=== PATIENT | male | born 1935 | race Caucasian/White ===

== ENCOUNTER 2018-08-26 16:24 | Observation (INO) ==
[2018-08-26] MEDS ORDERED: SODIUM CHLORIDE 0.9% 1000ML 1,000 ML IV SCH ×2 (16:45→19:52)
[2018-08-26 17:15] LABS: Basophils # (auto) 0.02 K/uL (0-0.2); Basophils % (auto) 0.3 %; Eosinophils # (auto) 0.05 K/uL (0-0.5); Eosinophils % (auto) 0.6 %; Hemoglobin 12.5 g/dL (14.0-18.0); Immature Granulocytes # (auto) 0.02 K/uL (0.00-0.02); Immature Granulocytes % (auto) 0.3 %; Lymphocytes # (auto) 0.41 K/uL (1.2-3.4); Lymphocytes % (auto) 5.2 %; Mean Corpuscular Hgb Conc 33.8 g/dL (32-36); Mean Corpuscular Volume 91.6 fL (80-100); Mean Platelet Volume 10.1 fL (7.4-10.4); Monocytes # (auto) 0.76 K/uL (0.11-0.59); Monocytes % (auto) 9.6 %; Neutrophils # (auto) 6.63 K/uL (1.4-6.5); Platelet Count 116 K/uL (130-400); RDW Coefficient of Variation 13.9 % (11.5-14.5); RDW Standard Deviation 46.2 fL (36.4-46.3); Red Blood Count 4.04 M/uL (4.7-6.1); White Blood Count 7.89 K/uL (4.8-10.8)
--- NOTE | 2018-08-26 17:30 | CT Scan Report ---
CT head/brain wo con CLINICAL HISTORY: 82 years-old Male with syncope. Acute syncope TECHNIQUE: Multiple axial CT images of the head were obtained without contrast. A dose lowering tech nique was utilized adhering to the principles of ALARA. CT DOSE: 767.83 mGy.cm COMPARISON: CT head 04/18/2018. FINDINGS: Study is mildly motion degraded. No acute intracranial hemorrhage, midline shift, intracranial mass, hydrocephalus, territorial ischemia or abnormal extra-axial collection. Age-related involutional frederick ges with ex vacuo ventriculomegaly. Patchy white matter hypodensities appear unchanged suggestive of chronic microvascular ischemic disease. Cerebral vascular calcifications noted. The calvarium is intact. 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 The parana shahbaz sinuses, mastoid air cells, and middle ear cavities are clear. IMPRESSION: No acute intracranial abnormality. The above report was generated using voice recognition software. It may contain grammatical, syntax o r spelling errors. Electronically signed by: Eloy Shukla M.D. 08/26/2018 5:29 PM
[2018-08-26 17:32] LABS: Alanine Aminotransferase 23 U/L (12-78); Albumin Level 3.5 gm/dl (3.4-5.0); Aspartate Aminotransferase 21 U/L (15-37); BUN Creatinine Ratio 23.5 (10-20); Blood Urea Nitrogen 33 mg/dl (7-18); Calcium 9.2 mg/dl (8.5-10.1); Carbon Dioxide 24 mmol/L (21-32); Chloride 108 mmol/L (98-107); Creatinine Clr Calc Pharmacy 41.4 ml/min; Est GFR (African American) 53.6; Est GFR (Non-African American) 46.2; Glucose 104 mg/dl (70-99); Magnesium 2.2 mg/dl (1.8-2.4); Potassium 4.2 mmol/L (3.5-5.1); Sodium 141 mmol/L (136-145)
[2018-08-26 17:38] LABS: INR 1.2 (0.9-1.1); Partial Thromboplastin Time 27.6 Seconds (21.0-31.0); Prothrombin Time 12.2 Seconds (9.0-12.0)
[2018-08-26 17:43] LABS: Albumin Globulin Ratio 1.3 (0.9-2); Alkaline Phosphatase 57 U/L (45-117); Bilirubin,Total 0.9 mg/dl (0.2-1); Globulin 2.8 gm/dl (2.5-4.0); Total Protein 6.3 gm/dl (6.4-8.2); Troponin I < 0.015 ng/ml (0-0.045)
[2018-08-26] MEDS ORDERED: MAGNESIUM HYDROXIDE SUSP 30 ML UDC PO PRN (19:52)
[2018-08-26] MEDS ORDERED: POLYETHYLENE (MIRALAX) 17 GM PACK PO PRN (19:52)
[2018-08-26] MEDS ORDERED: ACETAMINOPHEN 325 MG TAB PO PRN (19:52)
[2018-08-26] MEDS ORDERED: ONDANSETRON INJ 2 MG/ML 2 ML VIAL IV PRN (19:52)
[2018-08-26] MEDS ORDERED: ALUMINUM/MAGNESIUM SUSP 30 ML UDC PO PRN (19:52)
--- NOTE | 2018-08-26 20:17 | History & Physical Report ---
Date of Service August 26, 2018 Assessment & Plan (1) Altered mental state: This is an 82 year old M who has a significant PMH of CAD as/P CABG in 2010, atrial flutter status post ablation in 10/2013, atrial fibrillation status post Sharma maze in 11/2010, PPM to ICD upgrade in 06/2016, HTN, HLD, BPH, dementia who presents to [facility] secondary to episode of lightheadedness, diaphoresis, increased confusion x15 minutes. In ED patient remained hemodynamically stable. His CBC was significant for normocytic normal chromic anemia with an H&H of 12.5 and 37.0, platelet 116. His BUN and creatinine elevated at 33 and 1.39 electrolyte otherwise unremarkable. His troponin and TSH were unremarkable. CT scan of head revealed no acute abnormality. Chronic small vessel microvascular disease was present. He did receive 1 L of IV fluid while in ED with significant improvement in mentation per family. Symptoms likely secondary to dehydration, heat exhaustion, possible TIA admit to med/surg tele under observation continue IVF 60cc/hr x 1 L and re-evaluate renal/volume status in a.m. with reserved EF interrogate pacer Carotid doppler b/l obtain echocardiogram no additional neuro imaging warranted at this time - patient is already on high intensity statin, asa and apixaban hold lisinopril and terazosin this evening (2) Acute renal insufficiency: Baseline creatinine 1.1 BUN/creatinine 33 and 1.39 today Likely prerenal/dehydration Continue gentle IVF, BMP in a.m. (3) CAD (coronary artery disease): History of CABG x4 in 2010 Continue ASA, high intensity statin, beta-iglberto JAME inhibitor on hold secondary to renal insuff (4) Chronic combined systolic and diastolic CHF (congestive heart failure): Echocardiogram 03/06 revealed LVEF 35 to 40% with global hypokinesis, severe diastolic dysfunction grade 3, AV sclerosis, moderate to severe MR Pacer/AICD in place On beta-gilberto, lisinopril as outpatient He is currently euvolemic but will rehydrate slowly (5) Atrial fibrillation: History of Sharma-Maze procedure 2010, also history of atrial flutter status post ablation Continue carvedilol for rate/rhythm control as well as apixaban for thrombotic control Patient has pacemaker/AICD in place (6) Hypertension: Blood pressure initially on lower side but now was 164/99 Patient is on carvedilol, lisinopril, terazosin We will hold lisinopril and terra Zosyn until reevaluated in a.m. continue carvedilol with parameters Check orthostatics (7) Dementia: continue namenda mental status at baseline (8) DVT prophylaxis: continue apixaban, scds/teds Disposition: admit to med/surg telemetry; likely discharge to home will consult PT/OT Follow up: PCP Dr. Weller upon discharge Patient was seen and evaluated in collaboration with Dr. Carpio, please see addendum Starting 08/27/18 patient will be under the care of Dr. Kessler History of Present Illness Chief Complaint: Episode of lightheaded, diaphoresis, increased confusion x 15 minutes Primary Care Provider: Luís Weller MD This is an 82 year old M who has a significant PMH of CAD as/P CABG in 2010, atrial flutter status post ablation in 10/2013, atrial fibrillation status post Sharma maze in 11/2010, PPM to ICD upgrade in 06/2016, HTN, HLD, BPH, dementia who presents to [facility] secondary to episode of lightheadedness, diaphoresis, increased confusion x15 minutes. , daughter, son-in-law at bedside. Family states patient was at [employer] festival that was in [place], [place] this afternoon. It was very warm and humid. Patient was standing in line drinking milkshake when he appeared, "mclean, cyanotic and sweaty." got patient to sit down and he was, "woozy," unable to communicate and vomited/was foaming out of the mouth. said it was his peanut butter milkshake he just drank. Once EMS arrived in approx 15 min patient was moving all extremities and appeared back to baseline. Family states after he received 1L of IVF he was much improved, more alert and talking. Due to pt dementia he has not been very communicative; but after IVF he was very talkative. "We think he has been dehydrated for some time." He has very good appetite but limited fluid/water intake. Patient states he feels, "different, I feel better." He denies any current f/c/s, dizziness, lightheaded, chest pain, palpitations, n/v/d, change in bowel or urinary habits. No weight loss or gain. feels urine had very strong odor and very dark. In ED patient remained hemodynamically stable. His CBC was significant for normocytic normal chromic anemia with an H&H of 12.5 and 37.0, platelet 116. His BUN and creatinine elevated at 33 and 1.39 electrolyte otherwise unremarkable. His troponin and TSH were unremarkable. CT scan of head revealed no acute abnormality. Chronic small vessel microvascular disease was present. He did receive 1 L of IV fluid while in ED with significant improvement in mentation per family. Allergies Allergy/AdvReac Type Severity Reaction Status Date / Time diazepam AdvReac Unknown . Verified 04/18/18 17:21 Home Medications Home Medications Medication Instructions Recorded Confirmed Type apixaban [Eliquis] 5 mg PO BID 04/18/18 08/26/18 History aspirin [Aspirin Low Dose] 81 mg PO DAILY 04/18/18 08/26/18 History atorvastatin 80 mg PO HS 04/18/18 08/26/18 History carvedilol 25 mg PO BID 04/18/18 08/26/18 History finasteride 5 mg PO DAILY 04/18/18 08/26/18 History lisinopril 20 mg PO DAILY 04/18/18 08/26/18 History memantine 5 mg PO BID 04/18/18 08/26/18 History terazosin 5 mg PO HS 04/18/18 08/26/18 History Past Med/Surg History Medical History Dementia (Chronic) Atrial fibrillation (Chronic) Left carotid artery stenosis (Chronic) 50-69% LICA stenosis CAD (coronary artery disease) (Chronic) PAF (paroxysmal atrial fibrillation) (Chronic) 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 Father No problems noted. Other Coronary heart disease Social History Preferred Language: [place] Communication Ability: Effective Public Health Training Assistant Required: No Beliefs That Will Affect Care: None marital status: Current Living Situation: Spouse Current Living Situation Comment: living at home current occupational status: retired Other Information That Helps Us Care for You: No Feels Safe at Home: Yes Safety Concerns: Feels Safe At This Time Smoking Status: Former smoker Do You Dip or Chew Tobacco: No Second Hand Exposure: No Tobacco Cessation Education Requested by Patient: No Hx Alcohol Use: Yes Hx Substance Use: No Review of Systems Review of Systems: As noted per HPI, 10 systems reviewed and negative unless noted above. Physical Exam Physical Exam: Gen: WD/WN, Elderly, M, sitting up in bed, NAD, pleasant but confused, conversing easily Head: Normocephalic, Atraumatic Eyes: Sclera normal, no conjunctival injection, PERRLA, EOMI ENT: Gross hearing intact, normal pharynx, mucous membranes moist Neck: supple, no adenopathy, No JVD, no bruit, Resp: Clear to auscultation b/l, no wheeze, rales, rhonchi. Normal insp/exp effort, no accessory muscle use CV: Regular rate, regular rhythm, no murmur, rub, gallop, or ectopy Abd: +BS x 4, soft, nontender, nondistended Musculoskeletal: moves extremities active rom x 4, strength intact, good urology surgeon strength Extremities: No edema bilaterally Skin: warm, moist, no rash, negative turgor, cap refill < 2sec Neuro: Alert and oriented x to self, place and family, not to time or president, speech normal, good mood/affect, cran nerve 2-12 intact grossly : deferred Results & Data Vital Signs (Past 12 Hours) Vital Signs Temp Pulse Pulse Resp BP BP Pulse Ox 08/26/18 19:52 36.9 C 80 18 164/99 H 98 08/26/18 19:21 80 18 167/92 H 97 08/26/18 17:09 81 18 126/74 97 08/26/18 16:50 63 97 08/26/18 16:39 36.7 C 72 18 132/81 97 Laboratory Results Short CBC 08/26/18 Range/Units 17:05 WBC 7.89 (4.8-10.8) K/uL Hgb 12.5 L (14.0-18.0) g/dL Hct 37.0 L (42-52) % Plt Count 116 L (130-400) K/uL BMP 08/26/18 17:05 Sodium 141 Potassium 4.2 Chloride 108 H Carbon Dioxide 24 BUN 33 H Creatinine 1.39 Glucose 104 H Calcium 9.2 Cardiac Enzymes 08/26/18 Range/Units 17:05 Troponin I < 0.015 (0-0.045) ng/ml Liver Function 08/26/18 Range/Units 17:05 Total Bilirubin 0.9 (0.2-1) mg/dl AST 21 (15-37) U/L ALT 23 (12-78) U/L Alkaline Phosphatase 57 (45-117) U/L Albumin 3.5 (3.4-5.0) gm/dl Diagnostic Findings Head CT: IMPRESSION: No acute intracranial abnormality. Medications Administered Discontinued Medications Sodium Chloride (Nss 1000ml) 1,000 mls @ 999 mls/hr IV .[id number] HARISH Stop: 08/26/18 17:45 Last Infusion: 08/26/18 19:03 Dose: 0 mls/hr Documented by: [id number] Admin: 08/26/18 17:42 Dose: 999 mls/hr Documented by: [id number] Code Status & VTE Plan Code Status Full Code VTE Prophylaxis Plan VTE Prophylaxis will be ordered: Yes Supervising Physician Co-Signing Physician Notes IM ATTENDING : Patient seen and examined. History obtained from patient and records. Preceding documentation by Ms. Lucretia Collins PA-C reviewed. In addition, patient limited history from patient secondary to dementia (no documented diagnosis although patient on Namenda.) FINAL ASSESSMENT AND PLAN as follows : Transient disorientation Possible orthostasis Likely secondary to clinical dehydration on the basis of ketonuria, relative increase in creatinine from baseline SSS sp PPM, on Eliquis History A.FIb/ Flutter status post maze procedure, ablation Chronic systolic heart failure secondary to ischemic cardiomyopathy, EF 35 to 40%, TTE 2018 -Some congestion noted after IVF bolus given at the ER CAD status post CABG Hypertension, slightly elevated Chronic anemia, hemoglobin at baseline BPH as per records OBS Medical telemetry Check orthostatic vitals PT OT eval DVT prophylaxis Eliquis Full code Home in a.m. if patient asymptomatic and work-up unremarkable.
[2018-08-26] MEDS: ATORVASTATIN 40 MG TAB PO SCH (20:34)
[2018-08-26] MEDS: MEMANTINE HCL 5 MG TAB PO SCH (20:34)
[2018-08-26] MEDS: APIXABAN 5 MG TABLET PO SCH (20:35)
[2018-08-26] MEDS ORDERED: CARVEDILOL 25 MG TAB PO SCH (21:00)
--- NOTE | 2018-08-26 21:45 | XRay Report ---
XR chest 1V portable CLINICAL HISTORY: 82 years-old Male presenting with diaphoresis. TECHNIQUE: Portable upright AP view of the chest was obtained. COMPARISON: 04/18/2018. FINDINGS: Left subclavian implanted cardiac defibrillator with leads in the right HM and right ventricular apex . An additional dependent pacer lead to the right ventricular apex may also be present. Median sterno bailey wires. Mediastinal surgical clips. Atherosclerosis of the aortic arch. Cardiac silhouette mildly enlarged. Mild pulmonary vascular prominence. No focal opacity. No large effusion or pneumothorax. O sseous structures normal. Interval external leads overlie the abdomen to grating evaluation. IMPRESSION: 1. Cardiomegaly with only mild volume overload possible. No congestive change or darling pulmonary ondina yamil. Electronically signed by: Jose Nelson M.D. 08/26/2018 9:44 PM
--- NOTE | 2018-08-26 23:01 | Ultrasound Report ---
US carotid doppler BI CLINICAL HISTORY: 82 years-old Male presenting with syncope, hx of L ICA 50-69%. TECHNIQUE: Real-time grayscale and color and spectral Doppler ultrasound imaging of the bilateral car otid arteries was performed. Stenosis measurements were based on NASCET-like criteria (distal lumen d iameter as the denominator for stenosis measurement). COMPARISON: None. FINDINGS: RIGHT: Common carotid artery (CCA): Atherosclerosis at the carotid bulb. Peak systolic velocity (PSV) 74 cm/ s. Internal carotid artery (ICA): Atherosclerosis of the proximal ICA. PSV 52 cm/s. End diastolic veloci ty (EDV) 15 cm/s. ICA/CCA (systolic) ratio: 0.7. External carotid artery (ECA): Patent. PSV 85 cm/s. LEFT: CCA: Atherosclerosis at the carotid bulb. PSV 73 cm/s. ICA: Atherosclerosis of the proximal ICA. PSV 137 cm/s. EDV 27 cm/s. ICA/CCA (systolic) ratio: 1.9. ECA: Patent. PSV 72 cm/s. Bilateral antegrade flow within the vertebral arteries. Blood pressure: Brachial: Right: 131/77 mmHg, Left: 138/75 mmHg. Reference ranges: Stenosis measurements are compared to reference velocity parameters by the Society of Radiologists in Ultrasound (SRU) consensus and Sonographic NASCET index (S-NASCET). * SRU Primary parameters: ICA PSV <125 cm/s = normal or less than 50% stenosis; ICA PSV 125-230 cm/s = 50-69% stenosis; ICA PSV >230 cm/s = greater than or equal to 70% stenosis. * SRU Additional parameters: ICA/CCA PSV ratio <2 = normal or less than 50% stenosis; ratio 2-4 = 5 0-69% stenosis; ratio >4 = greater than or equal to 70% stenosis. ICA EDV <40 cm/s = normal or less t layne 50% stenosis; ICA EDV 40-100 cm/s = 50-69% stenosis; ICA EDV >100 cm/s = greater than or equal to 70% stenosis. * S-NASCET parameters: Deceleration spectral broadening + PSV <125 cm/s = less than 50% stenosis; pa nsystolic spectral broadening + PSV <125 cm/s = 16-49% stenosis; pansystolic spectral broadening + PS V >125 cm/s + EDV <110 cm/s or ICA/CCA PSV ratio 2-4 = 50-69% stenosis; pansystolic spectral broadeni ng + PSV >270 cm/s OR EDV >110 cm/s OR ICA/CCA PSV ratio >4 = 70-79% stenosis; EDV >140 cm/s = 80-99% stenosis. IMPRESSION: 1. Atherosclerosis with up to 50-69% stenosis of the proximal left internal carotid artery. Electronically signed by: Jose Nelson M.D. 08/26/2018 11:00 PM
--- NOTE | 2018-08-26 23:18 | Emergency Department Note ---
Entered by Mel Rome acting as a scribe for Ernesto Walker MD History of Present Illness General Chief complaint: Syncope Stated complaint: SYNCOPE Time Seen by Provider: 08/26/18 16:29 Source: patient Limitations: no limitations History of Present Illness Onset (ago): minute(s) ([facility] [employer]) Location: head Pain Consistency: + other (episode) Current Pain Intensity: 0 Quality: + other (syncope) Associated symptoms: no chest pain, no headaches, no nausea/vomiting and no sh ortness of breath The patient is an 82 white male w/ PMHx HTN, hyperlipidemia, a fib on Eliquis, CABG x 4, and Alzheimer's who presents to the ED w/ CC of an episode of a syncope that occurred [employer]. He reports that the episode lasted a few seconds, however, the nursing staff notes that the episode lasted 3-5 minutes. Per the nursing staff, he was diaphoretic after the episode. The patient notes that he was outside for most of the day today. He denies any pain. The patient denies any nausea, BOLAND, CP, and SOB. He denies any history of similar episodes or seizures. The patient notes that he follows up with Dr. Keller of cardiology. Per the nursing staff, the patient's sugar was 141. He is currently taking Aspirin and Eliquis. Home Medications Home Medications Medication Instructions Recorded Confirmed Type apixaban [Eliquis] 5 mg PO BID 04/18/18 08/26/18 History aspirin [Aspirin Low Dose] 81 mg PO DAILY 04/18/18 08/26/18 History atorvastatin 80 mg PO HS 04/18/18 08/26/18 History carvedilol 25 mg PO BID 04/18/18 08/26/18 History finasteride 5 mg PO DAILY 04/18/18 08/26/18 History lisinopril 20 mg PO DAILY 04/18/18 08/26/18 History memantine 5 mg PO BID 04/18/18 08/26/18 History terazosin 5 mg PO HS 04/18/18 08/26/18 History Allergies Allergy/AdvReac Type Severity Reaction Status Date / Time diazepam AdvReac Unknown . Verified 04/18/18 17:21 Past Med/Surg History Medical History Dementia (Chronic) Atrial fibrillation (Chronic) Left carotid artery stenosis (Chronic) 50-69% LICA stenosis CAD (coronary artery disease) (Chronic) PAF (paroxysmal atrial fibrillation) (Chronic) 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 Father No problems noted. Other Coronary heart disease Social History Preferred Language: [place] Communication Ability: Effective Special Police Officer Required: No Beliefs That Will Affect Care: None marital status: Current Living Situation: Spouse Current Living Situation Comment: living at home current occupational status: retired Other Information That Helps Us Care for You: No Feels Safe at Home: Yes Safety Concerns: Feels Safe At This Time Smoking Status: Former smoker Do You Dip or Chew Tobacco: No Second Hand Exposure: No Tobacco Cessation Education Requested by Patient: No Hx Alcohol Use: Yes Hx Substance Use: No Review of Systems See HPI for pertinent positives & negatives. and A total of 10 systems reviewed and were otherwise negative Physical Exam Vital Signs Vital Signs - 24 hr 08/26/18 16:39 08/26/18 16:50 08/26/18 17:09 Temperature 36.7 C Temperature Source Oral Sepsis Recent Fever Within 48 Hours No Sepsis New/Unexplained Change in Mental Status No Sepsis Action Taken by Nursing No Action Required Pulse Rate 72 63 Pulse Rate [Apical] 81 Respiratory Rate 18 18 Respiratory Effort / Characteristics Non-Labored Spontaneous Respiratory Depth Normal Blood Pressure 132/81 Blood Pressure [Right Arm] 126/74 Blood Pressure Mean 98 Blood Pressure Mean [Right Arm] 91 Pulse Oximetry 97 97 97 Oxygen Delivery Method Room Air Room Air Room Air GENERAL: Well appearing, well nourished, NAD, non-toxic. EYE EXAM: Normal conjunctiva. PERRL, no anisocoria and EOM's grossly intact w/o pain. OROPHARYNX: Dry mucous membranes. Grossly normal dentition. NECK: Supple, no nuchal rigidity, no adenopathy, non-tender. No signs of meningismus. LUNGS: Clear to auscultation. Normal chest wall mechanics. CHEST: Device in the left chest. Well-healed midline sternotomy scar. HEART: NSR, no MRG. ABDOMEN: Abdomen soft, non-tender, normo-active bowel sounds, no masses, no rebound or guarding. BACK: No CVA TTP. SKIN: No rashes and no bruising. UPPER EXTREMITIES: Upper extremities are grossly normal. LOWER EXTREMITIES: No pitting edema. No calf pain. NEURO EXAM: A&O x3, cranial nerves II-XII grossly intact, normal speech, moves all 4 extremities on command w/o issue. Course 1628: The patient was evaluated in room B02. A complete history and physical exam was performed. 1805: I spoke with Lucretia Collins PA-C, about the patients case. The patient will be further evaluated by Dr. Hernandez, [facility]. Consultations Consultation #1: [id number]: I spoke with Lucretia Collins PA-C, about the patients case. The patient will be further evaluated by Dr. Hernandez, [facility]. Time: 18:06 Administered Medications Apixaban (Eliquis) 5 mg PO BID [facility] Stop: 09/25/18 20:59 Last Admin: 08/26/18 20:35 Dose: 5 mg Documented by: [id number] Atorvastatin Calcium (Lipitor) 80 mg PO HS [facility] Stop: 09/25/18 20:59 Last Admin: 08/26/18 20:34 Dose: 80 mg Documented by: [id number] Carvedilol (Coreg) 25 mg PO BID [facility] Stop: 09/25/18 20:59 Last Admin: 08/26/18 20:34 Dose: 25 mg Documented by: [id number] Sodium Chloride (Nss 1000ml) 1,000 mls @ 60 mls/hr IV .[id number] [facility] Last Admin: 08/26/18 20:33 Dose: 60 mls/hr Documented by: [id number] Memantine (Namenda) 5 mg PO BID [facility] Stop: 09/25/18 20:59 Last Admin: 08/26/18 20:34 Dose: 5 mg Documented by: [id number] Discontinued Medications Sodium Chloride (Nss 1000ml) 1,000 mls @ 999 mls/hr IV .[id number] [facility] Stop: 08/26/18 17:45 Last Infusion: 08/26/18 19:03 Dose: 0 mls/hr Documented by: [id number] Admin: 08/26/18 17:42 Dose: 999 mls/hr Documented by: [id number] Medical Decision Making Differential Diagnosis Etiologies such as vasovagal event, infection, anemia, hypoglycemia, hypovolemia, electrolyte abnormalities, dysrhythmias, cardiac ischemia, cardiac tamponade, valvular heart disease, structural heart disease, seizure, vascular stenosis/dissection, pulmonary embolism, intracerebral event, toxicological process, neurologic event, as well as others were entertained. Medical Records Attestation: I reviewed the patient's medical records. Home Medications Current Medication List: was personally reviewed by me Laboratory Data Attestation: I reviewed the patient's lab results. Result diagrams: 08/26/18 17:05 08/26/18 17:05 Lab Results 08/26/18 08/26/18 08/26/18 Range/Units 17:05 17:05 17:05 WBC 7.89 (4.8-10.8) K/uL RBC 4.04 L (4.7-6.1) M/uL Hgb 12.5 L (14.0-18.0) g/dL Hct 37.0 L (42-52) % MCV 91.6 (80-100) fL MCH 30.9 (25-34) pg MCHC 33.8 (32-36) g/dL RDW Std Deviation 46.2 (36.4-46.3) fL RDW Coeff of Skylar 13.9 (11.5-14.5) % Plt Count 116 L (130-400) K/uL MPV 10.1 (7.4-10.4) fL Immature Gran % (Auto) 0.3 % Neut % (Auto) 84.0 % Lymph % (Auto) 5.2 % [place] % (Auto) 9.6 % Eos % (Auto) 0.6 % Baso % (Auto) 0.3 % Immature Gran # (Auto) 0.02 (0.00-0.02) K/uL Neut # (Auto) 6.63 H (1.4-6.5) K/uL Lymph # (Auto) 0.41 L (1.2-3.4) K/uL [place] # (Auto) 0.76 H (0.11-0.59) K/uL Eos # (Auto) 0.05 (0-0.5) K/uL Baso # (Auto) 0.02 (0-0.2) K/uL PT 12.2 H (9.0-12.0) Seconds INR 1.2 H (0.9-1.1) APTT 27.6 (21.0-31.0) Seconds PTT Ratio 1.0 Sodium 141 (136-145) mmol/L Potassium 4.2 (3.5-5.1) mmol/L Chloride 108 H (98-107) mmol/L Carbon Dioxide 24 (21-32) mmol/L Anion Gap 9.0 (3-11) BUN 33 H (7-18) mg/dl Creatinine 1.39 (0.6-1.4) mg/dl Est Cr Clr Drug Dosing 41.4 ml/min Est GFR ( Amer) 53.6 Est GFR (Non-Af Amer) 46.2 BUN/Creatinine Ratio 23.5 H (10-20) Glucose 104 H (70-99) mg/dl Calcium 9.2 (8.5-10.1) mg/dl Magnesium 2.2 (1.8-2.4) mg/dl Total Bilirubin 0.9 (0.2-1) mg/dl AST 21 (15-37) U/L ALT 23 (12-78) U/L Alkaline Phosphatase 57 (45-117) U/L Troponin I < 0.015 (0-0.045) ng/ml NT-Pro-B Natriuret Pep (0-1800) pg/ml Total Protein 6.3 L (6.4-8.2) gm/dl Albumin 3.5 (3.4-5.0) gm/dl Globulin 2.8 (2.5-4.0) gm/dl Albumin/Globulin Ratio 1.3 (0.9-2) TSH 0.988 (0.300-4.500) uIu/ml 08/26/18 Range/Units 17:05 WBC (4.8-10.8) K/uL RBC (4.7-6.1) M/uL Hgb (14.0-18.0) g/dL Hct (42-52) % MCV (80-100) fL MCH (25-34) pg MCHC (32-36) g/dL RDW Std Deviation (36.4-46.3) fL RDW Coeff of Skylar (11.5-14.5) % Plt Count (130-400) K/uL MPV (7.4-10.4) fL Immature Gran % (Auto) % Neut % (Auto) % Lymph % (Auto) % [place] % (Auto) % Eos % (Auto) % Baso % (Auto) % Immature Gran # (Auto) (0.00-0.02) K/uL Neut # (Auto) (1.4-6.5) K/uL Lymph # (Auto) (1.2-3.4) K/uL [place] # (Auto) (0.11-0.59) K/uL Eos # (Auto) (0-0.5) K/uL Baso # (Auto) (0-0.2) K/uL PT (9.0-12.0) Seconds INR (0.9-1.1) APTT (21.0-31.0) Seconds PTT Ratio Sodium (136-145) mmol/L Potassium (3.5-5.1) mmol/L Chloride (98-107) mmol/L Carbon Dioxide (21-32) mmol/L Anion Gap (3-11) BUN (7-18) mg/dl Creatinine (0.6-1.4) mg/dl Est Cr Clr Drug Dosing ml/min Est GFR ( Amer) Est GFR (Non-Af Amer) BUN/Creatinine Ratio (10-20) Glucose (70-99) mg/dl Calcium (8.5-10.1) mg/dl Magnesium (1.8-2.4) mg/dl Total Bilirubin (0.2-1) mg/dl AST (15-37) U/L ALT (12-78) U/L Alkaline Phosphatase (45-117) U/L Troponin I (0-0.045) ng/ml NT-Pro-B Natriuret Pep 1961 H (0-1800) pg/ml Total Protein (6.4-8.2) gm/dl Albumin (3.4-5.0) gm/dl Globulin (2.5-4.0) gm/dl Albumin/Globulin Ratio (0.9-2) TSH (0.300-4.500) uIu/ml Imaging Data Radiologist's Impression: Radiology results as stated below per my review and the radiologist's interpretation: CT head/brain wo con CLINICAL HISTORY: 82 years-old Male with syncope. Acute syncope TECHNIQUE: Multiple axial CT images of the head were obtained without contrast. A dose lowering technique was utilized adhering to the principles of ALARA. CT DOSE: 767.83 mGy.cm COMPARISON: CT head 04/18/2018. FINDINGS: Study is mildly motion degraded. No acute intracranial hemorrhage, midline shift, intracranial mass, hydrocephalus, territorial ischemia or abnormal extra- axial collection. Age-related involutional changes with ex vacuo ventriculomegaly. Patchy white matter hypodensities appear unchanged suggestive of chronic microvascular ischemic disease. Cerebral vascular calcifications noted. The calvarium is intact. 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 The paranasal sinuses, mastoid air cells, and middle ear cavities are clear. IMPRESSION: No acute intracranial abnormality. The above report was generated using voice recognition software. It may contain grammatical, syntax or spelling errors. Electronically signed by: Eloy Shukla M.D. 08/26/2018 5:29 PM ECG Data Attestation: I personally reviewed and interpreted this ECG as follows: Indication: syncope Rate (beats per minute): 72 Rhythm: other (V-paced ) Findings: + other (left axis deviation) and + T-wave inversion (anteriorly and inferiorly) Comparison ECG Date: from (02/26/18) Change: the following changes noted (rhythm change, TWI and axis old) Blood Pressure Blood Pressure Findings: Normal blood pressure Blood Pressure Disposition: did not require urgent referral MDM Narrative The patient is an 82 white male w/ PMHx HTN, hyperlipidemia, and Alzheimer's who presents to the ED w/ CC of an episode of a syncope that occurred [employer]. Patient was seen and evaluated the bedside. History is somewhat limited given the patient does have a history of dementia but is fairly with it at the bedside and states that he did pass out but was only brief in nature. Patient denies any active chest pain shortness of breath or headache. Patient did have blood work completed along with an EKG troponin chest x-ray and CT the brain. CT the brain is negative. Patient's EKG is fairly unchanged from before although does read as a junctional region rhythm although on the monitor he does appear to be ventricularly paced. Pacer interrogation was to be attempted by the nursing staff. This was still pending. The patient's troponin was not elevated. The patient does have mildly elevated consistent with some dehydration as the patient was outdoors for prolonged period of time during peak times of heat during the day. Given the patient's high risk nature and the fact that he is a prior CABG and pacemaker I did speak with the on-call hospitalist service agreed to further evaluate treat the patient. Patient was admitted to the medicine service. Impression & Plan Syncope, Dehydration Discharge Plan Visit Data *Final* Discharge Date/Time: 08/26/18 19:29 Chief Complaint: Syncope Stated Complaint: SYNCOPE ED Provider: Ernesto Walker Discharge Problem: Syncope, Dehydration Patient Disposition: Admitted As Inpatient Discharge Instructions Interventions: ED Discharge Assessment Last Done: 08/26/18 19:29 Discharge Problem: Syncope Qualifiers: Syncope type: unspecified Qualified Code(s): R55 - Syncope and collapse The scribe's documentation has been prepared under my direction and personally reviewed by me in its entirety. I confirm that the note above accurately reflects all work, treatment, procedures, and medical decision making performed by me.
[2018-08-27 03:59] LABS: Hematocrit (blood only) 34.2 % (42-52); Hemoglobin 11.2 g/dL (14.0-18.0); Mean Corpuscular Hgb Conc 32.7 g/dL (32-36); Mean Corpuscular Volume 91.2 fL (80-100); RDW Coefficient of Variation 13.8 % (11.5-14.5); RDW Standard Deviation 46.2 fL (36.4-46.3); Red Blood Count 3.75 M/uL (4.7-6.1); White Blood Count 6.52 K/uL (4.8-10.8)
[2018-08-27 04:17] LABS: BUN Creatinine Ratio 26.4 (10-20); Calcium 8.6 mg/dl (8.5-10.1); Creatinine Clr Calc Pharmacy 46.7 ml/min; Est GFR (African American) 68.1; Est GFR (Non-African American) 58.7
[2018-08-27 04:22] LABS: Troponin I 0.025 ng/ml (0-0.045)
[2018-08-27 04:26] LABS: Acanthocytes 1+; Basophils # (auto) 0.01 K/uL (0-0.2); Basophils % (auto) 0.2 %; Eosinophils # (auto) 0.05 K/uL (0-0.5); Eosinophils % (auto) 0.8 %; Immature Granulocytes # (auto) 0.01 K/uL (0.00-0.02); Immature Granulocytes % (auto) 0.2 %; Lymphocytes # (auto) 0.65 K/uL (1.2-3.4); Mean Platelet Volume 9.6 fL (7.4-10.4); Monocytes # (auto) 0.69 K/uL (0.11-0.59); Monocytes % (auto) 10.6 %; Neutrophils # (auto) 5.11 K/uL (1.4-6.5); Neutrophils % (auto) 78.2 %; Ovalocytes 1+; Platelet Count 99 K/uL (130-400); Platelet Estimate Decreased (Normal)
[2018-08-27] MEDS: CARVEDILOL 25 MG TAB PO SCH ×2 (06:11→19:39)
[2018-08-27 06:45] LABS: Appearance Urine Clear (Clear); Bilirubin Urine Negative (Negative); Blood Urine Negative (Negative); Color Urine Yellow; Glucose Urine UA Negative (Negative); Ketones Urine Trace (Negative); Leukocyte Esterase Urine Negative (Negative); Nitrite Urine Negative (Negative); Protein Urine Negative (Negative); Specific Gravity Urine 1.023 (1.000-1.030); Urobilinogen Urine Negative (Negative)
[2018-08-27] MEDS: MEMANTINE HCL 5 MG TAB PO SCH ×2 (07:45→19:45)
[2018-08-27] MEDS: FINASTERIDE 5 MG TAB PO SCH (07:45)
[2018-08-27] MEDS: ASPIRIN 81 MG ECTAB PO SCH (07:46)
[2018-08-27] MEDS: APIXABAN 5 MG TABLET PO SCH ×2 (07:46→19:39)
--- NOTE | 2018-08-27 15:15 | Hospitalist Progress Note ---
Date of Service August 27, 2018 Assessment & Plan (1) Altered mental state: This is an 82 year old M who has a significant PMH of CAD as/P CABG in 2010, atrial flutter status post ablation in 10/2013, atrial fibrillation status post Sharma maze in 11/2010, PPM to ICD upgrade in 06/2016, HTN, HLD, BPH, dementia who presents to [facility] secondary to episode of lightheadedness, diaphoresis, increased confusion x15 minutes. In ED patient remained hemodynamically stable. His CBC was significant for normocytic normal chromic anemia with an H&H of 12.5 and 37.0, platelet 116. His BUN and creatinine elevated at 33 and 1.39 electrolyte otherwise unremarkable. His troponin and TSH were unremarkable. CT scan of head revealed no acute abnormality. Chronic small vessel microvascular disease was present. He did receive 1 L of IV fluid while in ED with significant improvement in mentation per family. 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 and these occlusions are known to patient's family -neurology workup up No acute intracranial abnormality on Head CT and echocardiogram shows comparable cardiac function to that from 1 year ago -atrial fibrillation which is chronic and intermittent, heart rate controlled -appears to be mental baseline by 08/27/18 at this time as confirmed with patient's family -would observe patient on telemetry further to ensure to acute events (2) Acute renal insufficiency: presentation creatinine of 1.39 and suggestive of dehydration as Baseline creatinine 1.1 creatinine downtrended with IV fluids (3) CAD (coronary artery disease): History of CABG x4 in 2010 Continue ASA, high intensity statin, carvedilol resume lisinopril (4) Chronic combined systolic and diastolic CHF (congestive heart failure): Chronic systolic heart failure secondary to ischemic cardiomyopathy History of myocardial infraction in the distant past -Echocardiogram 02/2017 revealed LVEF 35 to 40% with global hypokinesis, severe diastolic dysfunction grade 3, AV sclerosis, moderate to severe Mitral regurgitation, moderate tricuspid regurgitation, moderate pulmonic insufficieny, mild aortic insufficiency, moderate right and left atrial enlargement, moderate right and left ventricular enlargement Pacer/AICD in place -Echocardiogram on 08/27/18 with comparable ejection fraction of 30 to 35%. The right ventricular systolic function is normal. The left atrium is severely dilated. Mild aortic regurgitation. There is moderate to severe mitral regurgitation. There is mild tricuspid regurgitation -troponins negative x 3 (5) Atrial fibrillation: -History of Sharma-Maze procedure 2010, also history of atrial flutter status post ablation -intermittently with atrial fibrillation on telemetry monitoring but heart rate is controlled -Patient has pacemaker/AICD in place -Continue carvedilol for rate/rhythm control as well as apixaban for thrombotic control -continue to monitor on telemetry (6) Hypertension: -blood pressure was normal on initial presentation on 08/26/18 -has been noted to be as elevated as 182/100 while on IV fluids on AM of 08/27/18 -IV fluids have been stopped -continue home dose carvedilol 25 mg BID. -resume home dose lisinopril 20 mg daily and terasozin 5 mg qhs (7) Dementia: -continue namenda -dementia history confirmed by patient's daughter Ignacia ([phone]; [phone]) and patient's (8) DVT prophylaxis: continue apixaban, scds/teds patient's daughter Ignacia ([phone]; [phone]) and patient's Subjective Patient has history of dementia. does not know the year of the month which is usual as per patient's family at the bedside. patient is alert and cooperative on exam. he denies chest pain or shortness of breath. no observed syncopal or diaphoretic events while in the hospital to date Physical Exam Constitutional: WD/WN, vitals as above Eyes: PERRL, conjunctivae normal, anicteric sclerae EOM intact bilaterally ENMT: external ear and nose normal, oropharynx normal Neck: trachea midline, no thyromegaly Respiratory: normal respiratory effort, lungs clear to auscultation Cardiovascular: Rate/Rhythm: regular rate Gastrointestinal (Abdomen): normal bowel sounds, soft, nontender, no hepatosplenomegaly Musculoskeletal: Head/Neck/Chest: normocephalic and head atraumatic Neurologic: PERRL, EOMI, accommodation nl, no face palsy, no dysarthria Psychiatric: Orientation: alert, oriented to person and cooperative Results & Data Vital Signs (Past 12 Hours) Vital Signs Temp Pulse Pulse Resp BP BP Pulse Ox 08/27/18 14:56 95 H 08/27/18 11:33 37.0 C 75 18 147/88 H 97 08/27/18 07:38 36.9 C 73 18 142/96 H 97 08/27/18 04:00 36.6 C 69 18 182/100 H 168/91 H 95
[2018-08-27] MEDS: LISINOPRIL 20 MG TAB PO SCH (16:39)
[2018-08-27] MEDS: ATORVASTATIN 40 MG TAB PO SCH (19:40)
[2018-08-27] MEDS ORDERED: TERAZOSIN HCL 5 MG CAP PO SCH (21:00)
[2018-08-28] MEDS ORDERED: AMLODIPINE BESYLATE 5 MG TAB PO ONE (07:18)
[2018-08-28] MEDS: CARVEDILOL 25 MG TAB PO SCH (08:27)
[2018-08-28] MEDS: ASPIRIN 81 MG ECTAB PO SCH (08:28)
[2018-08-28] MEDS: APIXABAN 5 MG TABLET PO SCH (08:28)
[2018-08-28] MEDS: LISINOPRIL 20 MG TAB PO SCH (08:29)
[2018-08-28] MEDS: FINASTERIDE 5 MG TAB PO SCH (08:29)
[2018-08-28] MEDS: MEMANTINE HCL 5 MG TAB PO SCH (08:29)
--- NOTE | 2018-08-28 09:54 | Hospitalist Progress Note ---
Date of Service August 28, 2018 Assessment & Plan (1) Altered mental state: This is an 82 year old M who has a significant PMH of CAD as/P CABG in 2010, atrial flutter status post ablation in 10/2013, atrial fibrillation status post Sharma maze in 11/2010, PPM to ICD upgrade in 06/2016, HTN, HLD, BPH, dementia who presents to [facility] secondary to episode of lightheadedness, diaphoresis, increased confusion x15 minutes. In ED patient remained hemodynamically stable. His CBC was significant for normocytic normal chromic anemia with an H&H of 12.5 and 37.0, platelet 116. His BUN and creatinine elevated at 33 and 1.39 electrolyte otherwise unremarkable. His troponin and TSH were unremarkable. CT scan of head revealed no acute abnormality. Chronic small vessel microvascular disease was present. He did receive 1 L of IV fluid while in ED with significant improvement in mentation per family. 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 and these occlusions are known to patient's family -neurology workup up No acute intracranial abnormality on Head CT and echocardiogram shows comparable cardiac function to that from 1 year ago -atrial fibrillation which is chronic and intermittent, heart rate controlled -appears to be mental baseline by 08/27/18 as confirmed with patient's family -Patient did not have any syncopal episodes in the hospital stay -Patient has follow up primary care appointment made for 08/31/2018 11:20 AM Provider Luís Weller MD Department Internal Medicine [facility] (2) Acute renal insufficiency: -presentation creatinine of 1.39 and suggestive of dehydration as Baseline creatinine 1.1 -creatinine downtrended with IV fluids on this admission -outpatient follow up (3) CAD (coronary artery disease): History of CABG x4 in 2010 Continue ASA, high intensity statin, carvedilol continue lisinopril (4) Chronic combined systolic and diastolic CHF (congestive heart failure): Chronic systolic heart failure secondary to ischemic cardiomyopathy History of myocardial infraction in the distant past -Echocardiogram 02/2017 revealed LVEF 35 to 40% with global hypokinesis, severe diastolic dysfunction grade 3, AV sclerosis, moderate to severe Mitral regurgitation, moderate tricuspid regurgitation, moderate pulmonic insufficieny, mild aortic insufficiency, moderate right and left atrial enlargement, moderate right and left ventricular enlargement Pacer/AICD in place -Echocardiogram on 08/27/18 with comparable ejection fraction of 30 to 35%. The right ventricular systolic function is normal. The left atrium is severely dilated. Mild aortic regurgitation. There is moderate to severe mitral regurgitation. There is mild tricuspid regurgitation -troponins negative x 3 (5) Atrial fibrillation: -History of Sharma-Maze procedure 2010, also history of atrial flutter status post ablation -intermittently with atrial fibrillation on telemetry monitoring but heart rate is controlled -Patient has pacemaker/AICD in place -Continue carvedilol for rate/rhythm control as well as apixaban for thrombotic control -continue to monitor on telemetry (6) Hypertension: -blood pressure was normal on initial presentation on 08/26/18 -has been noted to be as elevated as 182/100 while on IV fluids on AM of 08/27/18 and IV fluids have been stopped -continue home dose carvedilol 25 mg BID. -continue home dose lisinopril 20 mg daily and terasozin 5 mg qhs -Patient has follow up primary care appointment made for 08/31/2018 11:20 AM Provider Luís Weller MD Department Internal Medicine [facility] -Patient did not have any syncopal episodes in the hospital stay -Patient's blood pressure have been noted to be elevated on this hospital stay especially in the accounts payable representative and late night times (systolic 170s). Additional blood pressure medication of amlodipine 5 mg daily started during hospital stay (started in AM of 08/28/18 with good blood pressure response) -Prescription of amlodipine 5 mg daily electronically sent to patient's pharmacy [facility] [address] [place] [address] Dr Rachelle HOOPER [id number] (7) Dementia: -continue namenda -dementia history confirmed by patient's daughter Ignacia ([phone]; [phone]) and patient's (8) DVT prophylaxis: continue apixaban, scds/teds patient's daughter Ignacia ([phone]; [phone]) and patient's Diagnosis Altered mental Status (syncope), Dementia, Chronic atrial fibrillation, Hypertension, Acute renal insufficiency, chronic cardiomyopathy Subjective Patient verbal and cooperative on exam. poor historian because of dementia. denies pain. denies shortness of breath. nurse at bedside that patient with good mobility. no vomiting. no headache or lightheadedness or dizziness. no syncopal event Physical Exam Constitutional: WD/WN, vitals as above Eyes: PERRL, conjunctivae normal, anicteric sclerae EOM intact bilaterally ENMT: external ear and nose normal, oropharynx normal Neck: trachea midline, no thyromegaly Respiratory: normal respiratory effort, lungs clear to auscultation Cardiovascular: Rate/Rhythm: regular rate Gastrointestinal (Abdomen): normal bowel sounds, soft, nontender, no hepatosplenomegaly Musculoskeletal: Head/Neck/Chest: normocephalic and head atraumatic Neurologic: PERRL, EOMI, accommodation nl, no face palsy, no dysarthria Psychiatric: Orientation: alert, oriented to person and cooperative Results & Data Vital Signs (Past 12 Hours) Vital Signs Temp Pulse Pulse Resp BP BP Pulse Ox 08/28/18 09:38 74 117/75 08/28/18 07:11 36.7 C 75 18 170/94 H 98 08/28/18 04:00 36.9 C 75 20 147/85 H 94 08/28/18 01:19 73 08/27/18 23:04 36.4 C L 70 18 177/97 H 96
--- NOTE | 2018-08-28 10:01 | Discharge Summary ---
Date of Service August 28, 2018 Admission HPI Per Admitting Provider This is an 82 year old M who has a significant PMH of CAD as/P CABG in 2010, atrial flutter status post ablation in 10/2013, atrial fibrillation status post Sharma maze in 11/2010, PPM to ICD upgrade in 06/2016, HTN, HLD, BPH, dementia who presents to [facility] secondary to episode of lightheadedness, diaphoresis, increased confusion x15 minutes. , daughter, son-in-law at bedside. Family states patient was at [employer] festival that was in [place], [place] this afternoon. It was very warm and humid. Patient was standing in line drinking milkshake when he appeared, "mclean, cyanotic and sweaty ." got patient to sit down and he was, "woozy," unable to communicate and vomited/was foaming out of the mouth. said it was his peanut butter milkshake he just drank. Once EMS arrived in approx 15 min patient was moving all extremities and appeared back to baseline. Family states after he received 1L of IVF he was much improved, more alert and talking. Due to pt dementia he has not been very communicative; but after IVF he was very talkative. "We think he has been dehydrated for some time." He has very good appetite but limited fluid/water intake. Patient states he feels, "different, I feel better." He denies any current f/c/s, dizziness, lightheaded, chest pain, palpitations, n/v/d, change in bowel or urinary habits. No weight loss or gain. feels urine had very strong odor and very dark. In ED patient remained hemodynamically stable. His CBC was significant for normocytic normal chromic anemia with an H&H of 12.5 and 37.0, platelet 116. His BUN and creatinine elevated at 33 and 1.39 electrolyte otherwise unremarkable. His troponin and TSH were unremarkable. CT scan of head revealed no acute abnormality. Chronic small vessel microvascular disease was present. He did receive 1 L of IV fluid while in ED with significant improvement in mentation per family. Admission Exam Per Admitting Provider Gen: WD/WN, Elderly, M, sitting up in bed, NAD, pleasant but confused, conversing easily Head: Normocephalic, Atraumatic Eyes: Sclera normal, no conjunctival injection, PERRLA, EOMI ENT: Gross hearing intact, normal pharynx, mucous membranes moist Neck: supple, no adenopathy, No JVD, no bruit, Resp: Clear to auscultation b/l, no wheeze, rales, rhonchi. Normal insp/exp effort, no accessory muscle use CV: Regular rate, regular rhythm, no murmur, rub, gallop, or ectopy Abd: +BS x 4, soft, nontender, nondistended Musculoskeletal: moves extremities active rom x 4, strength intact, good seo engineer strength Extremities: No edema bilaterally Skin: warm, moist, no rash, negative turgor, cap refill < 2sec Neuro: Alert and oriented x to self, place and family, not to time or president, speech normal, good mood/affect, cran nerve 2-12 intact grossly : deferred Principal Diagnosis Patient's blood pressure have been noted to be elevated on this hospital stay especially in the otorhinolaryngologist and late night times (systolic 170s). Additional blood pressure medication of amlodipine 5 mg daily started during hospital stay (started in AM of 08/28/18 with good blood pressure response) Discharge Exam Constitutional WD/WN, vitals as above Eyes PERRL, conjunctivae normal, anicteric sclerae EOM intact bilaterally ENMT external ear and nose normal, oropharynx normal Neck trachea midline, no thyromegaly Respiratory normal respiratory effort, lungs clear to auscultation Cardiovascular Rate/Rhythm: regular rate Gastrointestinal (Abdomen) normal bowel sounds, soft, nontender, no hepatosplenomegaly Musculoskeletal Head/Neck/Chest: normocephalic and head atraumatic Neurologic PERRL, EOMI, accommodation nl, no face palsy, no dysarthria Psychiatric Orientation: alert, oriented to person and cooperative Discharge Data Allergies Allergy/AdvReac Type Severity Reaction Status Date / Time diazepam AdvReac Unknown . Verified 04/18/18 17:21 Consultations 08/26/18 18:04 ED Decision to Admit Stat Ordered Studies 08/26/18 16:44 CT head/brain wo con Stat 08/26/18 19:52 US carotid doppler BI Routine Hospital Course (1) Altered mental state: This is an 82 year old M who has a significant PMH of CAD as/P CABG in 2010, atrial flutter status post ablation in 10/2013, atrial fibrillation status post Sharma maze in 11/2010, PPM to ICD upgrade in 06/2016, HTN, HLD, BPH, dementia who presents to [facility] secondary to episode of lightheadedness, diaphoresis, increased confusion x15 minutes. In ED patient remained hemodynamically stable. His CBC was significant for normocytic normal chromic anemia with an H&H of 12.5 and 37.0, platelet 116. His BUN and creatinine elevated at 33 and 1.39 electrolyte otherwise unremarkable. His troponin and TSH were unremarkable. CT scan of head revealed no acute abnormality. Chronic small vessel microvascular disease was present. He did receive 1 L of IV fluid while in ED with significant improvement in mentation per family. 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 and these occlusions are known to patient's family -neurology workup up No acute intracranial abnormality on Head CT and echocardiogram shows comparable cardiac function to that from 1 year ago -atrial fibrillation which is chronic and intermittent, heart rate controlled -appears to be mental baseline by 08/27/18 as confirmed with patient's family -Patient did not have any syncopal episodes in the hospital stay -Patient has follow up primary care appointment made for 08/31/2018 11:20 AM Provider Luís Weller MD Department Internal Medicine [facility] (2) Acute renal insufficiency: -presentation creatinine of 1.39 and suggestive of dehydration as Baseline creatinine 1.1 -creatinine downtrended with IV fluids on this admission -outpatient follow up (3) CAD (coronary artery disease): History of CABG x4 in 2010 Continue ASA, high intensity statin, carvedilol continue lisinopril (4) Chronic combined systolic and diastolic CHF (congestive heart failure): Chronic systolic heart failure secondary to ischemic cardiomyopathy History of myocardial infraction in the distant past -Echocardiogram 02/2017 revealed LVEF 35 to 40% with global hypokinesis, severe diastolic dysfunction grade 3, AV sclerosis, moderate to severe Mitral regurgitation, moderate tricuspid regurgitation, moderate pulmonic insufficieny, mild aortic insufficiency, moderate right and left atrial enlargement, moderate right and left ventricular enlargement Pacer/AICD in place -Echocardiogram on 08/27/18 with comparable ejection fraction of 30 to 35%. The right ventricular systolic function is normal. The left atrium is severely dilated. Mild aortic regurgitation. There is moderate to severe mitral regurgitation. There is mild tricuspid regurgitation -troponins negative x 3 (5) Atrial fibrillation: -History of Sharma-Maze procedure 2010, also history of atrial flutter status post ablation -intermittently with atrial fibrillation on telemetry monitoring but heart rate is controlled -Patient has pacemaker/AICD in place -Continue carvedilol for rate/rhythm control as well as apixaban for thrombotic control -continue to monitor on telemetry (6) Hypertension: -blood pressure was normal on initial presentation on 08/26/18 -has been noted to be as elevated as 182/100 while on IV fluids on AM of 08/27/18 and IV fluids have been stopped -continue home dose carvedilol 25 mg BID. -continue home dose lisinopril 20 mg daily and terasozin 5 mg qhs -Patient has follow up primary care appointment made for 08/31/2018 11:20 AM Provider Luís Weller MD Department Internal Medicine [facility] -Patient did not have any syncopal episodes in the hospital stay -Patient's blood pressure have been noted to be elevated on this hospital stay especially in the otorhinolaryngologist and late night times (systolic 170s). Additional blood pressure medication of amlodipine 5 mg daily started during hospital stay (started in AM of 08/28/18 with good blood pressure response) -Prescription of amlodipine 5 mg daily electronically sent to patient's pharmacy [facility] [address] [place] [address] Dr Rachelle HOOPER [id number] (7) Dementia: -continue namenda -dementia history confirmed by patient's daughter Ignacia ([phone]; [phone]) and patient's (8) DVT prophylaxis: continue apixaban, scds/teds patient's daughter Ignacia ([phone]; [phone]) and patient's Diagnosis Altered mental Status (syncope), Dementia, Chronic atrial fibrillation, Hypertension, Acute renal insufficiency, chronic cardiomyopathy Total Time Total Time Spent Total Time Spent (In Minutes): 40 minutes Total Time Includes: Examination of the Patient, Discharge Planning, Medication Reconciliation and Communication With Other Providers Discharge Plan Discharge Items Patient Disposition: Home - Self-Care Reason For Visit: SYNCOPE Discharge Diagnosis: Altered mental Status (syncope), Dementia, Chronic atrial fibrillation, Hypertension, Acute renal insufficiency, chronic cardiomyopathy Condition: Good Discharge Goals: Improve disease control Activity: Per 'Additional Instructions' section Non-emergency contact: Primary Care Provider Call non-emergency contact if: you have any medication questions Follow-up/Referrals: Luís Weller MD [Primary Care Provider] - Diet: Heart Healthy Addtl Provider Instructions: Patient has follow up primary care appointment made for 08/31/2018 11:20 AM Provider Luís Weller MD Department Internal Medicine [facility] Patient did not have any syncopal episodes in the hospital stay Patient's blood pressure have been noted to be elevated on this hospital stay especially in the otorhinolaryngologist and late night times (systolic 170s). Additional blood pressure medication of amlodipine 5 mg daily started during hospital stay (started in AM of 08/28/18 with good blood pressure response) Prescription of amlodipine 5 mg daily electronically sent to patient's pharmacy [address] [place] [address] Prescriptions: New amlodipine [Norvasc] 5 mg Tablet 5 mg PO QAM 30 Days Qty: 30 RF: 0 Continued terazosin 5 mg capsule 5 mg PO HS RF: 0 atorvastatin 80 mg tablet 80 mg PO HS RF: 0 carvedilol 25 mg tablet 25 mg PO BID RF: 0 lisinopril 20 mg tablet 20 mg PO DAILY RF: 0 aspirin [Aspirin Low Dose] 81 mg Tablet,Delayed Release (Dr/Ec) 81 mg PO DAILY RF: 0 finasteride 5 mg tablet 5 mg PO DAILY RF: 0 memantine 5 mg tablet 5 mg PO BID RF: 0 Eliquis 5 mg tablet 5 mg PO BID RF: 0 Stand-Alone Forms: [facility] Discharge Orders: Discharge Order (Routine); Ordered 08/28/18 Ordered By: Jake Kessler Admission Data Admit Date/Time: 08/26/18 18:48 Attending Provider: Jake Kessler Admit Provider: Anup Carpio Primary Care Provider: Luís Weller Other Providers: Bhavin Hernandez Service: Telemetry
[2018-08-29] MEDS ORDERED: AMLODIPINE BESYLATE 5 MG TAB PO SCH (09:00)
--- NOTE | 2018-09-10 09:40 | Coding Letter ---
A supporting diagnosis is required for the test/procedure performed on this patient in order for us to be reimbursed by the patient's insurance. Please provide a supporting diagnosis for the following test/procedure listed below next to the test name along with your signature. *If there is no additional diagnosis for this patient that would support the following test/procedure please document that below next to the test/procedure. Test(s)/Procedure(s) that require a supporting diagnosis: Carotid Doppler Study DIAGNOSIS: Provider Signature: Date: Thank you Malu Tsai Health Information Management Once completed, please kindly fax back to [phone] For questions please call [phone] SARITA
--- NOTE | 2018-10-01 14:33 | Coding Query ---
A supporting diagnosis is required for the test/procedure performed on this patient in order for us to be reimbursed by the patient's insurance. Please provide a supporting diagnosis for the following test/procedure listed below next to the test name along with your signature. *If there is no additional diagnosis for this patient that would support the following test/procedure please document that below next to the test/procedure. Test(s)/Procedure(s) that require a supporting diagnosis: Us Carotid Doppler BI Routine DIAGNOSIS:___Syncope Provider Signature: __Lucretia Collins PA-C Date: _10/01/18 Thank you Malu Tsai Health Information Management Once completed, please kindly fax back to [phone] For questions please call [phone] SARITA
== END 2018-08-28 13:30 | disposition home or self-care (01) ==
LOC: 2N 16:24 → ED 16:24 → 2N 19:29

== ENCOUNTER 2018-09-07 04:29 | Inpatient (IN) ==
[2018-09-07] MEDS ORDERED: SODIUM CHLORIDE 0.9% 500 ML IV STA (04:37)
--- NOTE | 2018-09-07 04:48 | Emergency Department Note ---
History of Present Illness General Chief complaint: Abdominal Pain Stated complaint: abdominal pain Time Seen by Provider: 09/07/18 04:32 History of Present Illness This 83-year-old presents to the ER complaining of abdominal pain and vomiting Location: Mid abdomen Quality: Nauseous Severity: Moderate Duration: 2 days Timing: Started Friday night Context: was concerned and brought him in Modifying factors: better with nothing; worse with nothing Patient said an appendectomy in the past. He does have dementia. He is able to answer some questions. Patient denies chest pain, dyspnea, fevers, cough, congestion, back pain. states he keeps on vomiting and is unable to keep fluids down. Home Medications Home Medications Medication Instructions Recorded Confirmed Type Eliquis 5 mg PO BID 04/18/18 09/07/18 History aspirin [Aspirin Low Dose] 81 mg PO DAILY 04/18/18 09/07/18 History atorvastatin 80 mg PO HS 04/18/18 09/07/18 History carvedilol 25 mg PO BID 04/18/18 09/07/18 History finasteride 5 mg PO DAILY 04/18/18 09/07/18 History lisinopril 20 mg PO DAILY 04/18/18 09/07/18 History memantine 5 mg PO BID 04/18/18 09/07/18 History terazosin 5 mg PO HS 04/18/18 09/07/18 History amlodipine [Norvasc] 5 mg PO QAM 30 Days #30 tab 08/28/18 09/07/18 Rx Aristocort 1 applic EXT BID 09/07/18 09/07/18 History Allergies Allergy/AdvReac Type Severity Reaction Status Date / Time diazepam AdvReac Unknown . Verified 09/07/18 04:48 Past Med/Surg History Medical History Hernia, inguinal, recurrent Dementia (Chronic) Atrial fibrillation (Chronic) Left carotid artery stenosis (Chronic) 50-69% LICA stenosis CAD (coronary artery disease) (Chronic) PAF (paroxysmal atrial fibrillation) (Chronic) 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 Father No problems noted. Other Coronary heart disease Social History Preferred Language: Nepalese Communication Ability: hx paramjit Communication Ability Comment: hx dementia Lead Infrastructure Architect Required: No Beliefs That Will Affect Care: None marital status: Current Living Situation: Spouse Current Living Situation Comment: living at home current occupational status: retired Other Information That Helps Us Care for You: No Feels Safe at Home: Yes Safety Concerns: Feels Safe At This Time Smoking Status: Never smoker Do You Dip or Chew Tobacco: No Second Hand Exposure: No Tobacco Cessation Education Requested by Patient: No Hx Alcohol Use: Yes Hx Substance Use: No Review of Systems All systems reviewed & are unremarkable except as noted in HPI & below Physical Exam Vital Signs Vital Signs - 24 hr 09/07/18 05:06 09/07/18 05:42 09/07/18 07:28 Temperature 36.8 C Temperature Source Oral Sepsis Recent Fever Within 48 Hours No Sepsis Action Taken by Nursing No Action Required Pulse Rate 85 Pulse Rate [Right Finger] 72 77 Pulse Rhythm [Right Finger] Regular Pulse Strength [Right Finger] Normal Respiratory Rate 20 20 16 Respiratory Effort / Characteristics Non-Labored Spontaneous Non-Labored Spontaneous Respiratory Depth Normal Normal Respiratory Pattern Blood Pressure 128/89 Blood Pressure [Right Arm] 155/83 H 148/88 H Blood Pressure Mean 102 Blood Pressure Mean [Right Arm] 107 108 Blood Pressure Position Sitting Blood Pressure Position [Right Arm] Pulse Oximetry 95 98 Oxygen Delivery Method Room Air Room Air 09/07/18 07:30 09/07/18 08:11 Temperature 36.5 C Temperature Source Oral Sepsis Recent Fever Within 48 Hours Sepsis Action Taken by Nursing Pulse Rate Pulse Rate [Right Finger] 75 Pulse Rhythm [Right Finger] Regular Pulse Strength [Right Finger] Normal Respiratory Rate 18 Respiratory Effort / Characteristics Non-Labored Spontaneous Non-Labored Spontaneous Respiratory Depth Normal Normal Respiratory Pattern Regular Regular Blood Pressure Blood Pressure [Right Arm] 160/95 H Blood Pressure Mean Blood Pressure Mean [Right Arm] 116 Blood Pressure Position Blood Pressure Position [Right Arm] Sitting Pulse Oximetry 96 Oxygen Delivery Method Room Air Room Air VITALS: Vitals are noted on the nurse's note and reviewed by myself. Vital signs stable. GENERAL: White male, in no acute distress, nondiaphoretic, well-developed well- nourished. SKIN: The skin was without rashes, erythema, edema, or bruising. There is no tenting of the skin. Capillary reflex less than 2 seconds. HEAD: Normocephalic atraumatic. EARS: External auditory canals clear, tympanic membranes pearly mclean without erythema or effusion bilaterally. EYES: Pupils equal round and reactive to light and accommodation. Conjunctivae without injection, sclerae without icterus. Extraocular movements intact. NOSE: Patent, turbinates without inflammation or discharge. MOUTH: Mucous membranes moist. Pharynx without erythema or exudate. Uvula midline. Airway patent. Tongue does not deviate. NECK: Supple without nuchal rigidity. No lymphadenopathy. No thyromegaly. Cervical spine is nontender. No JVD. HEART: Regular rate and rhythm LUNGS: Clear to auscultation bilaterally without wheezes, rales or rhonchi. No retractions or accessory muscle use. ABDOMEN: Positive bowel sounds x 4. Normal tympanic percussion. Soft, tender to palpation mid abdomen, without masses or organomegaly. Roy sign negative. No guarding or rebound tenderness. No CVA tenderness MUSCULOSKELETAL: No muscle atrophy, erythema, or edema noted. NEURO: Patient was alert and oriented to person . Normal sensation to light and sharp touch. Patient able to follow commands. No focal neurological deficits. Course Administered Medications Apixaban (Eliquis) 5 mg PO BID HARISH Stop: 10/07/18 20:59 Last Admin: 09/07/18 20:38 Dose: 5 mg Documented by: [id number] Carvedilol (Coreg) 25 mg PO BID HARISH Stop: 10/07/18 20:59 Last Admin: 09/07/18 20:38 Dose: 25 mg Documented by: [id number] Lactated Ringer's (Lr) 1,000 mls @ 50 mls/hr IV .Q20H HARISH Stop: 10/07/18 11:05 Last Admin: 09/07/18 12:21 Dose: 50 mls/hr Documented by: [id number] Piperacillin Sod/Tazobactam (Sod 3.375 gm/ Dextrose) 115 mls @ 28.75 mls/hr IV Q8H [facility]; Protocol Stop: 09/17/18 15:59 Last Admin: 09/07/18 23:37 Dose: 28.8 mls/hr Documented by: [id number] Infusion: 09/07/18 20:30 Dose: 0 mls/hr Documented by: [id number] Admin: 09/07/18 16:21 Dose: 28.8 mls/hr Documented by: [id number] Memantine (Namenda) 5 mg PO BID [facility] Stop: 10/07/18 20:59 Last Admin: 09/07/18 20:38 Dose: 5 mg Documented by: [id number] Terazosin HCl (Hytrin) 5 mg PO HS [facility] Stop: 10/07/18 20:59 Last Admin: 09/07/18 20:37 Dose: 5 mg Documented by: [id number] Discontinued Medications Fentanyl Citrate (Fentanyl Citrate) 25 mcg IV Q5M PRN PRN Reason: PACU Use Only-Pain Stop: 09/07/18 13:36 Last Admin: 09/07/18 09:50 Dose: 25 mcg Documented by: [id number] Admin: 09/07/18 09:45 Dose: 25 mcg Documented by: [id number] Sodium Chloride (Nss) 500 mls @ 999 mls/hr IV .Q31M STA Stop: 09/07/18 05:07 Last Infusion: 09/07/18 06:07 Dose: 0 mls/hr Documented by: [id number] Admin: 09/07/18 05:11 Dose: 999 mls/hr Documented by: [id number] Piperacillin Sod/Tazobactam Sod (Zosyn) 4.5 gm in 120 mls @ 240 mls/hr IV NOW ONE Stop: 09/07/18 06:35 Last Admin: 09/07/18 06:11 Dose: Not Given Documented by: [id number] Piperacillin Sod/Tazobactam (Sod 3.375 gm/ Dextrose) 115 mls @ 230 mls/hr IV NOW ONE; Protocol Stop: 09/07/18 11:59 Last Infusion: 09/07/18 13:01 Dose: 0 mls/hr Documented by: [id number] Admin: 09/07/18 12:21 Dose: 230 mls/hr Documented by: [id number] Lidocaine HCl (Xylocaine 1% (Local)) 9 ml INJ ONCE ONE Stop: 09/07/18 09:24 Last Admin: 09/07/18 09:10 Dose: 9 ml Documented by: [id number] Metoprolol Tartrate (Lopressor) 5 mg IV NOW STA Stop: 09/07/18 09:56 Last Admin: 09/07/18 09:57 Dose: 5 mg Documented by: [id number] Metoprolol Tartrate (Lopressor) Confirm Administered Dose 5 mg IV .STK-MED ONE Stop: 09/07/18 09:57 Last Admin: 09/07/18 19:59 Dose: Not Given Documented by: [id number] Medical Decision Making Medical Records Attestation: I reviewed the patient's medical records. Home Medications Current Medication List: was personally reviewed by me Laboratory Data Attestation: I reviewed the patient's lab results. Result diagrams: 09/07/18 04:47 09/07/18 04:47 Lab Results 09/07/18 09/07/18 09/07/18 Range/Units 04:47 04:47 04:52 WBC 15.56 H (4.8-10.8) K/uL RBC 4.37 L (4.7-6.1) M/uL Hgb 13.4 L (14.0-18.0) g/dL POC Hgb (14.0-18.0) g/dl Hct 39.4 L (42-52) % POC Hct (42-52) % MCV 90.2 (80-100) fL MCH 30.7 (25-34) pg MCHC 34.0 (32-36) g/dL RDW Std Deviation 46.9 H (36.4-46.3) fL RDW Coeff of Skylar 14.1 (11.5-14.5) % Plt Count 123 L (130-400) K/uL MPV 10.1 (7.4-10.4) fL Immature Gran % (Auto) 0.3 % Neut % (Auto) 87.7 % Lymph % (Auto) 4.9 % [place] % (Auto) 6.9 % Eos % (Auto) 0.1 % Baso % (Auto) 0.1 % Immature Gran # (Auto) 0.04 H (0.00-0.02) K/uL Neut # (Auto) 13.66 H (1.4-6.5) K/uL Lymph # (Auto) 0.77 L (1.2-3.4) K/uL [place] # (Auto) 1.07 H (0.11-0.59) K/uL Eos # (Auto) 0.01 (0-0.5) K/uL Baso # (Auto) 0.01 (0-0.2) K/uL POC Sodium (135-144) mEq/L Sodium 138 (136-145) mmol/L POC Potassium (3.3-5.0) mEq/L Potassium 4.1 (3.5-5.1) mmol/L POC Chloride (101-112) mEq/L Chloride 101 (98-107) mmol/L Carbon Dioxide 29 (21-32) mmol/L POC Total CO2 (24-31) mEq/l Anion Gap 8.0 (3-11) POC Anion Gap (16-25) mmol/L POC BUN (7-18) mg/dl BUN 50 H (7-18) mg/dl Creatinine 1.38 (0.6-1.4) mg/dl POC Creatinine (0.6-1.3) mg/dl Est Cr Clr Drug Dosing 36.0 ml/min Est GFR ( Amer) 53.6 Est GFR (Non-Af Amer) 46.3 BUN/Creatinine Ratio 36.3 H (10-20) Glucose 134 H (70-99) mg/dl POC Glucose (other) (70-99) mg/dl POC Lactic Acid Humberto 1.21 (0.90-1.70) mmol/L Calcium 9.4 (8.5-10.1) mg/dl POC Ioniz Calcium Dalia (1.12-1.32) mmol/l Magnesium 2.1 (1.8-2.4) mg/dl Total Bilirubin 1.5 H (0.2-1) mg/dl AST 22 (15-37) U/L ALT 23 (12-78) U/L Alkaline Phosphatase 55 (45-117) U/L POC Troponin I (0-0.045) ng/ml Total Protein 6.7 (6.4-8.2) gm/dl Albumin 3.5 (3.4-5.0) gm/dl Globulin 3.2 (2.5-4.0) gm/dl Albumin/Globulin Ratio 1.1 (0.9-2) Lipase 84 (73-393) U/L 09/07/18 09/07/18 Range/Units 04:52 04:56 WBC (4.8-10.8) K/uL RBC (4.7-6.1) M/uL Hgb (14.0-18.0) g/dL POC Hgb 12.9 L (14.0-18.0) g/dl Hct (42-52) % POC Hct 38 L (42-52) % MCV (80-100) fL MCH (25-34) pg MCHC (32-36) g/dL RDW Std Deviation (36.4-46.3) fL RDW Coeff of Skylar (11.5-14.5) % Plt Count (130-400) K/uL MPV (7.4-10.4) fL Immature Gran % (Auto) % Neut % (Auto) % Lymph % (Auto) % [place] % (Auto) % Eos % (Auto) % Baso % (Auto) % Immature Gran # (Auto) (0.00-0.02) K/uL Neut # (Auto) (1.4-6.5) K/uL Lymph # (Auto) (1.2-3.4) K/uL [place] # (Auto) (0.11-0.59) K/uL Eos # (Auto) (0-0.5) K/uL Baso # (Auto) (0-0.2) K/uL POC Sodium 137 (135-144) mEq/L Sodium (136-145) mmol/L POC Potassium 4.1 (3.3-5.0) mEq/L Potassium (3.5-5.1) mmol/L POC Chloride 99 L (101-112) mEq/L Chloride (98-107) mmol/L Carbon Dioxide (21-32) mmol/L POC Total CO2 28 (24-31) mEq/l Anion Gap (3-11) POC Anion Gap 15.0 L (16-25) mmol/L POC BUN 50 H (7-18) mg/dl BUN (7-18) mg/dl Creatinine (0.6-1.4) mg/dl POC Creatinine 1.3 (0.6-1.3) mg/dl Est Cr Clr Drug Dosing ml/min Est GFR ( Amer) Est GFR (Non-Af Amer) BUN/Creatinine Ratio (10-20) Glucose (70-99) mg/dl POC Glucose (other) 139 H (70-99) mg/dl POC Lactic Acid Humberto (0.90-1.70) mmol/L Calcium (8.5-10.1) mg/dl POC Ioniz Calcium Dalia 1.19 (1.12-1.32) mmol/l Magnesium (1.8-2.4) mg/dl Total Bilirubin (0.2-1) mg/dl AST (15-37) U/L ALT (12-78) U/L Alkaline Phosphatase (45-117) U/L POC Troponin I < 0.03 (0-0.045) ng/ml Total Protein (6.4-8.2) gm/dl Albumin (3.4-5.0) gm/dl Globulin (2.5-4.0) gm/dl Albumin/Globulin Ratio (0.9-2) Lipase (73-393) U/L Imaging Data Attestation: I personally reviewed and interpreted this imaging study as follows: MDM Narrative Prior records/ancillary studies reviewed. Triage Nursing notes reviewed. Additional history obtained from family. The patient's history was concerning for abdominal pain. Differential diagnosis: Etiologies such as appendicitis, diverticulitis, PUD, biliary pathology, UTI, pancreatitis, obstruction, mesenteric ischemia, aortic pathology, infections, inflammatory bowel disease, renal colic, as well as others were entertained. Physical examination findings: As above. ER treatment provided: IV fluids, Zofran from EMS On reassessment the patient felt better. Diagnostics interpreted by me: ECG: A. fib with an occasional PVC, no acute ST or T wave changes, rate of 82. Patient has a history of a flutter. Impression a flutter with occasional PVC interpreted by myself The labs revealed negative lactic acid. Leukocytosis. Negative troponin Imaging studies: CT ABDOMEN & PELVIS With Contrast: Right inguinal hernia contains a fluid-filled small bowel loop, and results in small bowel obstruction. Mild stranding and fluid in the right inguinal hernia may reflect strangulation. Proximal loops are markedly dilated with air-fluid levels. Stomach is mildly distended. No free air. Small amount of free fluid in the abdomen and pelvis. Small hiatal hernia. Colonic diverticulosis. Cholelithiasis. Renal cysts. Appendix not visualized, no secondary findings. Cardiomegaly, pacemaker leads. Mild basilar atelectasis Radiologist: Antonino Gardner M.D. Consultation: A consultation was placed with the surgeon, Dr. Dash. The case was discussed and diagnostics were reviewed. The patient was evaluated in the ER for further treatment. Exam and history seem consistent with bowel obstruction secondary to hernia. Surgery evaluated the patient. He will take the patient to the OR. Medicine, Dr Miles, was consulted and will admit the patient with surgical consult. By the evaluation outlined above emergent etiologies such as appendicitis, diverticulitis, PUD, biliary pathology, UTI, pancreatitis, mesenteric ischemia, aortic pathology, infections, inflammatory bowel disease, renal colic, as well as others were deemed relatively unlikely. The patient and family informed about the findings as listed above. All questions were answered and pleased with the treatment. The chart was completed utilizing [employer] Speech voice recognition software. Grammatical errors, random word insertions, pronoun errors, and incomplete sentences are an occassional consequence of this system due to software l imitations, ambient noise, and hardware issues. Any formal questions or concerns about the content, text, or information contained within the body of this dictation should be directly addressed to the physician physical therapy assistant instructor for clarification. Case reviewed with my attending Impression & Plan SBO (small bowel obstruction) Discharge Plan Visit Data *Final* Discharge Date/Time: 09/07/18 07:35 Chief Complaint: Abdominal Pain Stated Complaint: abdominal pain ED Provider: Meena Knutson ED Midlevel Provider: Ana Watts Discharge Problem: SBO (small bowel obstruction) Patient Disposition: Admitted As Inpatient Condition: Fair Discharge Instructions Interventions: ED Discharge Assessment Last Done: 09/07/18 07:35
[2018-09-07 04:57] LABS: Basophils # (auto) 0.01 K/uL (0-0.2); Basophils % (auto) 0.1 %; Eosinophils # (auto) 0.01 K/uL (0-0.5); Eosinophils % (auto) 0.1 %; Hematocrit (blood only) 39.4 % (42-52); Hemoglobin 13.4 g/dL (14.0-18.0); Immature Granulocytes # (auto) 0.04 K/uL (0.00-0.02); Immature Granulocytes % (auto) 0.3 %; Lymphocytes # (auto) 0.77 K/uL (1.2-3.4); Lymphocytes % (auto) 4.9 %; Mean Corpuscular Volume 90.2 fL (80-100); Mean Platelet Volume 10.1 fL (7.4-10.4); Monocytes # (auto) 1.07 K/uL (0.11-0.59); Monocytes % (auto) 6.9 %; Neutrophils # (auto) 13.66 K/uL (1.4-6.5); Neutrophils % (auto) 87.7 %; Platelet Count 123 K/uL (130-400); RDW Coefficient of Variation 14.1 % (11.5-14.5); RDW Standard Deviation 46.9 fL (36.4-46.3); Red Blood Count 4.37 M/uL (4.7-6.1); White Blood Count 15.56 K/uL (4.8-10.8)
[2018-09-07 05:13] LABS: Albumin Level 3.5 gm/dl (3.4-5.0); BUN Creatinine Ratio 36.3 (10-20); Calcium 9.4 mg/dl (8.5-10.1); Est GFR (African American) 53.6; Est GFR (Non-African American) 46.3; Magnesium 2.1 mg/dl (1.8-2.4); Potassium 4.1 mmol/L (3.5-5.1)
[2018-09-07 05:15] LABS: iSTAT Creatinine 1.3 mg/dl (0.6-1.3); iSTAT Hemoglobin 12.9 g/dl (14.0-18.0); iSTAT Ionized Calcium 1.19 mmol/l (1.12-1.32); iSTAT Potassium 4.1 mEq/L (3.3-5.0)
[2018-09-07 05:16] LABS: Albumin Globulin Ratio 1.1 (0.9-2); Bilirubin,Total 1.5 mg/dl (0.2-1); Globulin 3.2 gm/dl (2.5-4.0); Total Protein 6.7 gm/dl (6.4-8.2)
[2018-09-07] MEDS ORDERED: IOVERSOL 100ml IV PRN (05:42)
[2018-09-07] MEDS ORDERED: PIPERACILL/TAZOBAC CONSULT ACTIVE PRN ×2 (06:06→11:06)
[2018-09-07] MEDS ORDERED: PIPERACILLIN/TAZOBACTAM 4.5 GM/120 ML BAG IV ONE (06:06)
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
[2018-09-07] MEDS ORDERED: fentaNYL citrate 100 MCG/2 ML VIAL ONE (07:27)
--- NOTE | 2018-09-07 07:42 | Anesthesiology Consultation ---
Date of Service September 07, 2018 The patient has an incarcerated hernia and emergently needs surgery. He has a medical history significant for dementia, cartotid stenosis, afib, CHF, and severe MR. The patient is DNR. I spoke to his daughter who is very emotional but who agrees that he needs surgery to minimize bowel ischemia and agrees to temporarily suspend the DNR. I explained that the patient is at a very high risk for anesthesia but will likely without surgery. Assessment & Plan (1) Encounter for pre-operative examination: Chart Review Chart Review: Acceptable Risk for Surgery and Patient NOT seen in Pre Admission Testing The patient is high risk for emergency surgery. DNR is temporarily suspended. History Surgery Operation Date: 09/07/18 11:15 Proposed Procedures p Open Incarcerated Inguinal Hernia Repair, Possible Bowel Resection - Eric Dash MD Height/Weight Height: 6 ft Weight: 65 kg Allergies Allergy/AdvReac Type Severity Reaction Status Date / Time diazepam AdvReac Unknown . Verified 09/07/18 04:48 Medications Home Medications Medication Instructions Recorded Confirmed Last Taken Eliquis 5 mg PO BID 04/18/18 09/07/18 08/26/18 aspirin [Aspirin Low Dose] 81 mg PO DAILY 04/18/18 09/07/18 08/26/18 atorvastatin 80 mg PO HS 04/18/18 09/07/18 08/25/18 carvedilol 25 mg PO BID 04/18/18 09/07/18 08/26/18 finasteride 5 mg PO DAILY 04/18/18 09/07/18 08/26/18 lisinopril 20 mg PO DAILY 04/18/18 09/07/18 08/26/18 memantine 5 mg PO BID 04/18/18 09/07/18 08/26/18 terazosin 5 mg PO HS 04/18/18 09/07/18 08/25/18 amlodipine [Norvasc] 5 mg PO QAM 30 Days #30 tab 08/28/18 09/07/18 Unknown Aristocort 1 applic EXT BID 09/07/18 09/07/18 Unknown Past Medical History Medical History Hernia, inguinal, recurrent Dementia (Chronic) Atrial fibrillation (Chronic) Left carotid artery stenosis (Chronic) 50-69% LICA stenosis CAD (coronary artery disease) (Chronic) PAF (paroxysmal atrial fibrillation) (Chronic) Chronic combined systolic and diastolic CHF (congestive heart failure) (Chronic) BPH (benign prostatic hyperplasia) (Chronic) History of cardiac pacemaker (Chronic) History of automatic internal cardiac defibrillator (AICD) (Chronic) Hypertension (Chronic) Past Family History Family History Mother , 96 No problems noted. Father No problems noted. Other Coronary heart disease Past Surgical History Surgical History H/O prostate biopsy (Chronic) History of hernia repair (Chronic) S/P CABG x 4 (Chronic) Social History Smoking Status: Never smoker Hx Alcohol Use: Yes alcohol intake frequency: holidays/special occasions only Hx Substance Use: No Physical Exam Vital Signs Last Vital Signs Temp 36.8 C 09/07/18 05:06 Pulse 77 09/07/18 07:28 Resp 16 09/07/18 07:28 BP 148/88 H 09/07/18 07:28 Pulse Ox 98 09/07/18 05:42 Testing Laboratory Results 09/07/18 04:47 09/07/18 04:47 09/07/18 04:56 POC Glucose (other) 139 H Electrocardiogram Date: 08/28/18 Findings: + AFIB @ ([address]) [address] and T wave abnormality, consider inferolateral ischemia, possible inferior infarct Chest X-Ray Date: 08/26/18 XR chest 1V portable CLINICAL HISTORY: 82 years-old Male presenting with diaphoresis. TECHNIQUE: Portable upright AP view of the chest was obtained. COMPARISON: 04/18/2018. FINDINGS: Left subclavian implanted cardiac defibrillator with leads in the right HM and right ventricular apex. An additional dependent pacer lead to the right ventricular apex may also be present. Median sternotomy wires. Mediastinal surgical clips. Atherosclerosis of the aortic arch. Cardiac silhouette mildly enlarged. Mild pulmonary vascular prominence. No focal opacity. No large effusion or pneumothorax. Osseous structures normal. Interval external leads overlie the abdomen to grating evaluation. IMPRESSION: 1. Cardiomegaly with only mild volume overload possible. No congestive change or darling pulmonary edema. Electronically signed by: Jose Nelson M.D. 08/26/2018 9:44 PM Dictated: 08/26/182141 Transcribed: 08/26/182141 Echocardiogram Date: 08/27/18 EF: 30-35 LV Function: dysfunctional Other Findings: + atrial enlargement (L severe dilation) Valvular Disease: + MR (mod to severe) mild TR
[2018-09-07] MEDS ORDERED: LIDOCAINE HCL 1% 20 ML VIAL ONE (08:29)
[2018-09-07] MEDS ORDERED: ONDANSETRON INJ 2 MG/ML 2 ML VIAL IV PRN ×2 (08:36→11:06)
[2018-09-07] MEDS ORDERED: PHENYLEPHRINE 100MCG/ML 5ML SYR IV PRN (08:36)
[2018-09-07] MEDS ORDERED: LABETALOL HCL IV 5 MG/ML 20ML IV PRN (08:36)
[2018-09-07] MEDS ORDERED: ePHEDrine sulfate 50 MG/ML AMP IV PRN (08:36)
[2018-09-07] MEDS ORDERED: ATROPINE SULFATE 0.1 MG/ML 10ML SYR IV PRN (08:36)
[2018-09-07] MEDS ORDERED: PHENYLEPHRINE HCL 10 MG/ML VIAL ONE (08:48)
[2018-09-07] MEDS ORDERED: LIDOCAINE HCL 2% 2 ML VIAL/AMP(20MG/ML) INFIL ONE (08:48)
[2018-09-07] MEDS ORDERED: PROPOFOL IV EMULSION 10 MG/ML 20 ML VIAL IV ONE (08:48)
[2018-09-07] MEDS ORDERED: SUCCINYLCHOLINE CHLORIDE 20 MG/ML 10 ML VIAL ONE (08:48)
[2018-09-07] MEDS ORDERED: ROCURONIUM BROMIDE 10 MG/ML 5 ML VIAL ONE (08:49)
[2018-09-07] MEDS ORDERED: NEOSTIGMINE METHYLSULFATE 5 MG/5 ML SYR ONE (08:58)
[2018-09-07] MEDS ORDERED: GLYCOPYRROLATE 0.2 MG/ML VIAL ONE (08:58)
[2018-09-07] MEDS ORDERED: ONDANSETRON INJ 2 MG/ML 2 ML VIAL ONE (08:58)
--- NOTE | 2018-09-07 09:19 | Post Operative Brief Note ---
Immediate Post Op Note v1 Date of Surgery September 07, 2018 Pre & Post Diagnosis Operation Date: 09/07/18 11:15 Pre-Op Diagnosis: Recurrent Right Inguinal Hernia Post-Op Diagnosis: Open Right Incarcerated Indirect Recurrent Inguinal Hernia Repair Procedure Operation Date: 09/07/18 11:15 Actual Procedures p Open Right Incarcerated Indirect Recurrent Inguinal Hernia Repair(Right) - Eric Dash MD Surgeon Eric Dash MD Dietary Aid b ozzy patel Estimated Blood Loss 15 Findings Consistent with Post-Op Diagnosis Drains [place] Drain
[2018-09-07] MEDS ORDERED: LIDOCAINE HCL 1% 20 ML VIAL INJ ONE (09:23)
--- NOTE | 2018-09-07 09:30 | CT Scan Report ---
CT SCAN OF THE ABDOMEN AND PELVIS WITH IV CONTRAST CLINICAL HISTORY: Mid abdominal pain. COMPARISON STUDY: Pelvic radiographs dated 04/18/2018. TECHNIQUE: Following the IV administration of 92 cc of Optiray 320, CT scan of the abdomen and pelvi s is performed from the lung bases to the proximal femora. Images are reviewed in the axial, sagittal , and coronal planes. IV contrast was administered without complication. A dose lowering technique wa s utilized adhering to the principles of ALARA. The examination is degraded by motion artifact, as we ll as by streak artifact from the arms which could not be elevated above the abdomen. CT DOSE: 566.09 mGy.cm FINDINGS: Lung bases: The patient is status post midline sternotomy. The heart is enlarged and without pericard ial effusion. The coronary arteries are densely calcified. Pacemaker leads are noted. The lung bases are clear noting bibasilar scarring/atelectasis. Liver: The contrast-enhanced liver is normal in size, contour, and attenuation. There is no intrahepa tic biliary ductal dilatation. The hepatic veins and portal veins are patent. Gallbladder: There are calcified gallstones, with no CT evidence of acute cholecystitis. Gallstones a re suggested within the cystic duct. Spleen: Normal in size and attenuation. Pancreas: Atrophic and grossly unremarkable. Adrenal glands: Unremarkable. Kidneys: The contrast enhanced kidneys demonstrate cortical atrophy and are without hydronephrosis. T he kidneys enhance symmetrically. Bilateral renal cysts measure up to 3.3 cm. Additional subcentimete r cortical hypodensities also likely represent cysts but are too small for definitive characterizatio n. Abdominal vasculature: There is advanced atherosclerotic calcification of the abdominal aorta. 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 Bowel: The small bowel loops are distended and fluid-filled measuring up to 4.2 cm in diameter. The t ransition point related to an incarcerated right inguinal hernia (axial image #[id number]). There is trace i nterloop fluid. No focally thick walled bowel loops are identified. There is no pneumatosis intestina lis or portal venous gas. A duodenal diverticulum is noted. Fecal retention is noted in the rectosigm oid colon. There is advanced colonic diverticulosis without CT evidence of acute diverticulitis. The appendix is not identified. Peritoneum: There is trace perihepatic and perisplenic ascites. No intraperitoneal free air is seen. Lymphadenopathy: None. Pelvic viscera: The prostate gland is markedly enlarged measuring 7 cm in diameter. There is median l obe hypertrophy. The bladder wall is thickened and trabeculated indicating chronic outlet obstruction . A 7 mm calculus is noted in the bladder lumen. Skeletal structures: The skeletal structures are osteopenic. There is moderate lumbosacral spondylosi s. No lytic or blastic lesions are seen. IMPRESSION: 1. Findings are consistent with a small bowel obstruction secondary to an incarcerated loop of small bowel within a right inguinal hernia. 2. There is a small volume of abdominopelvic ascites. No intraperitoneal free air is seen. No focally thick walled bowel loops are identified, and there is no pneumatosis intestinalis or portal venous g as. 3. Cholelithiasis, with gallstones noted in the cystic duct. There is no CT evidence of acute cholecy stitis. 4. Advanced colonic diverticulosis without CT evidence of acute diverticulitis. 5. Cardiomegaly. 6. Prostatomegaly with evidence of chronic bladder outlet obstruction. 7. Additional findings as above. Electronically signed by: Yonis Knapp M.D. 09/07/2018 9:29 AM
--- NOTE | 2018-09-07 09:38 | Operative Report ---
Post Operative Report Pre & Post Diagnosis Operation Date: 09/07/18 11:15 Pre-Op Diagnosis: Recurrent Right Inguinal Hernia Post-Op Diagnosis: Open Right Incarcerated Indirect Recurrent Inguinal Hernia Repair Procedure Operation Date: 09/07/18 11:15 Actual Procedures p Open Right Incarcerated Indirect Recurrent Inguinal Hernia Repair(Right) - Eric Dash MD The patient was brought into the operating room theater in supine position general anesthesia the abdomen including right lower quadrant to the thigh was prepped with Betadine solution properly draped systemic antibiotics was given timeout was had patient was identified and incision was made through the old scar in the inguinal canal deepened through subcutaneous tissue we approached it more laterally onto the external Bleich and with a finger we elevated the subcutaneous tissue from what was incarcerated tissue once we had this freed up we could to delineate that this at some necrotic tissue in the bulge that was coming through at this point I cannot definitively do fine the contents or the origin of the hernia we then were able to identify the cord which interestingly enough apparently may have been subcutaneously since we do not see any external oblique fascia on top of the cord we retracted the cord more inferiorly with a Attila drain at this point now we can identify that the contents of the necrotic tissue came in through the indirect ring on opening the tissue in the hernial sac there was some bloody fluid but no bowel contents the necrotic tissue was the hernial sac itself coming through initially I thought it made more even the bladder but it was all preperitoneal fat coming through on the outside of the hernia itself at this point I placed a Betty inside the abdomen and could not see any necrotic tissue and there was no ischemic appearing fluid in the abdomen suspected the bowel may have reduce itself with the anesthetic we resected the ischemic preperitoneal fat and fascia of the hernia ligating its base with 2-0 silk then we closed the hernial cell itself with 3-0 running chromic suture we returned that in the preperitoneal inside the abdomen next to the internal ring the external Bleich fascia stated was never really evident in the medial aspect but I can see it scored laterally beyond the internal ring the tissue that the patient had was all a weakness in the direct area therefore I elected to close this with 2-0 interrupted silk suture making sure that we had good tissue and closing of the defect certainly marijuana use any foreign material and given the overall limiting activity at this gentleman I suspect primary repair would be sufficient for him the cord was returned on top of the repair a Hobbs drain that we used to retract the cord was placed on top of the cord attachment laterally medially to the incision with 2-0 silk 2-0 Vicryl continuous fashion subcutaneous and jesus for skin edges dressing was applied procedure was tolerated well estimated blood loss approximately 10 cc addendumB Yudith HOOPER was present throughout the procedure and helped with exposure retraction and wound closure Surgeon Eric Dash MD Pole Classifier b yudith hooper Estimated Blood Loss 15 Findings Consistent with Post-Op Diagnosis Specimens hernia sac and inc tissue Description of Procedure merda I attest to the content of the Intraoperative Record and any orders documented therein. Any exceptions are noted below.
[2018-09-07] MEDS: fentaNYL citrate 100 MCG/2 ML VIAL IV PRN ×2 (09:45→09:50)
[2018-09-07] MEDS ORDERED: METOPROLOL TARTRATE 1 MG/ML VIAL IV STA (09:55)
[2018-09-07] MEDS ORDERED: METOPROLOL TARTRATE 1 MG/ML VIAL IV ONE (09:56)
--- NOTE | 2018-09-07 10:32 | Anesthesiology Progress Note ---
Date of Service September 07, 2018 Anesthesia Post Procedure Vital Signs Vital Signs: Temp Pulse Pulse Pulse Resp BP BP 09/07/18 10:20 80 13 151/82 H 09/07/18 10:10 36.7 C 96 H 19 151/89 H 09/07/18 10:00 83 18 156/93 H 09/07/18 09:57 111 H 151/94 H 09/07/18 09:50 111 H 18 145/96 H 09/07/18 09:40 36.7 C 121 H 18 159/107 H 09/07/18 09:33 36.7 C 118 H 18 149/100 H 09/07/18 08:11 36.5 C 75 18 160/95 H 09/07/18 07:28 77 16 148/88 H 09/07/18 05:42 72 20 155/83 H 09/07/18 05:06 36.8 C 85 20 128/89 Pulse Ox 09/07/18 10:20 98 09/07/18 10:10 98 09/07/18 10:00 99 09/07/18 09:57 09/07/18 09:50 100 09/07/18 09:40 100 09/07/18 09:33 100 09/07/18 08:11 96 09/07/18 07:28 09/07/18 05:42 98 09/07/18 05:06 95 Pain Intensity Abdomen: Pain Intensity: 4 Transfer of Care Handoff Completed per policy Notes Mental Status: alert / awake / arousable Patient Amnestic to Procedure: Yes Nausea / Vomiting: adequately controlled Pain: adequately controlled Airway Patency, RR, SpO2: stable & adequate BP & HR: stable & adequate Hydration State: stable & adequate Anesthetic Complications: no major complications apparent and Pt Satisfied with anesthetic care Notes: The patient is doing well. He is awake and stable at baseline. He was given metoprolol in PACU which lowered his HR from the 110s to the 80s. SBP remains in the 140s. The patient will go to the ICU for monitoring. Report was given to the resident in the ICU.
[2018-09-07] MEDS ORDERED: MoRPHine SULFATE 4 MG/ML 1 ML CARP\\VIAL IV PRN (11:06)
[2018-09-07] MEDS ORDERED: PIPERACILLIN/TAZOBACTAM 3.375 GM in DEXTROSE 5% 100 ML IV SCH (11:06)
[2018-09-07] MEDS ORDERED: MoRPHine SULFATE 2 MG/ML CARP IV PRN (11:06)
--- NOTE | 2018-09-07 11:09 | Critical Care Consultation ---
Date of Consultation September 07, 2018 History of Present Illness Attending Physician: Eric Dash MD Allergies Allergy/AdvReac Type Severity Reaction Status Date / Time diazepam AdvReac Unknown . Verified 09/07/18 04:48 Home Medications Home Medications Medication Instructions Recorded Confirmed Type Eliquis 5 mg PO BID 04/18/18 09/07/18 History aspirin [Aspirin Low Dose] 81 mg PO DAILY 04/18/18 09/07/18 History atorvastatin 80 mg PO HS 04/18/18 09/07/18 History carvedilol 25 mg PO BID 04/18/18 09/07/18 History finasteride 5 mg PO DAILY 04/18/18 09/07/18 History lisinopril 20 mg PO DAILY 04/18/18 09/07/18 History memantine 5 mg PO BID 04/18/18 09/07/18 History terazosin 5 mg PO HS 04/18/18 09/07/18 History amlodipine [Norvasc] 5 mg PO QAM 30 Days #30 tab 08/28/18 09/07/18 Rx Aristocort 1 applic EXT BID 09/07/18 09/07/18 History Patient History Medical History Hernia, inguinal, recurrent Dementia (Chronic) Atrial fibrillation (Chronic) Left carotid artery stenosis (Chronic) 50-69% LICA stenosis CAD (coronary artery disease) (Chronic) PAF (paroxysmal atrial fibrillation) (Chronic) 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 Father No problems noted. Other Coronary heart disease Social History Preferred Language: Maltese Communication Ability: briana yusuf Communication Ability Comment: hx dementia Operations Trainer Required: No Beliefs That Will Affect Care: None marital status: Current Living Situation: Spouse Current Living Situation Comment: living at home current occupational status: retired Other Information That Helps Us Care for You: No Feels Safe at Home: Yes Safety Concerns: Feels Safe At This Time Smoking Status: Never smoker Do You Dip or Chew Tobacco: No Second Hand Exposure: No Tobacco Cessation Education Requested by Patient: No Hx Alcohol Use: Yes Hx Substance Use: No Results & Data Vital Signs (Past 12 Hours) Vital Signs Temp Pulse Pulse Pulse Resp BP BP 09/07/18 10:40 36.8 C 82 14 158/98 H 09/07/18 10:30 36.8 C 82 14 151/89 H 09/07/18 10:20 80 13 151/82 H 09/07/18 10:10 36.7 C 96 H 19 151/89 H 09/07/18 10:00 83 18 156/93 H 09/07/18 09:57 111 H 151/94 H 09/07/18 09:50 111 H 18 145/96 H 09/07/18 09:40 36.7 C 121 H 18 159/107 H 09/07/18 09:33 36.7 C 118 H 18 149/100 H 09/07/18 08:11 36.5 C 75 18 160/95 H 09/07/18 07:28 77 16 148/88 H 09/07/18 05:42 72 20 155/83 H 09/07/18 05:06 36.8 C 85 20 128/89 Pulse Ox 09/07/18 10:40 99 09/07/18 10:30 99 09/07/18 10:20 98 09/07/18 10:10 98 09/07/18 10:00 99 09/07/18 09:57 09/07/18 09:50 100 09/07/18 09:40 100 09/07/18 09:33 100 09/07/18 08:11 96 09/07/18 07:28 09/07/18 05:42 98 09/07/18 05:06 95 PG Care Time/CCT Total # of Minutes Spent Total Time Spent with Patient: Total time spent is greater than 50% in coordination of care (as documented) at patient's floor/unit and/or counseling patient:
[2018-09-07] MEDS ORDERED: PIPERACILLIN/TAZOBACTAM 3.375 GM in DEXTROSE 5% 100 ML IV ONE (11:30)
[2018-09-07] MEDS: LACTATED RINGER'S 1,000 ML IV SCH (12:21)
[2018-09-07] MEDS: PIPERACILLIN/TAZOBACTAM 3.375 GM in DEXTROSE 5% 100 ML IV SCH ×2 (16:21→23:37)
--- NOTE | 2018-09-07 16:47 | Critical Care Consultation ---
Date of Consultation September 07, 2018 Assessment & Plan (1) Admitted to intensive care unit: Reason Critically Ill: Perioperative care for incarcerated right inguinal hernia Neuro - [facility]: Continues to be drowsy and lethargic from anesthesia. No significant neurological deficits identified Cardiac - History of CAD with CABG x4, AICD implant, atrial fibrillation, chronic anticoagulation, hypertension Continue home medications Patient on Eliquis as an anticoagulant -continue per surgery No chest pain or tightness EKG with atrial fibrillation which is rate controlled Continue to monitor on telemetry Respiratory - No history of tobacco abuse or pulmonary disease Oxygenating well on room air Continue to monitor GI - Emesis overnight with bilious material as listed above Electrolytes balanced Continue to monitor RENAL/LYTES - Chronic kidney disease BUN 50 Creatinine 1.38 Continue gentle hydration and follow serial labs Electrolytes balanced -follow serial labs - Rothman catheter in place secondary to surgery No hematuria ENDO - No history of diabetes mellitus HEME - Estimated blood loss during surgery 15 mL Hemoglobin and hematocrit stable Platelet count 123 Follow serial labs ID - No indication of infection although there is a slight elevation in WBC to 15.56 Slight leukocytosis No perforation identified during surgery Continue to monitor WBC LINES/IV ACCESS - Peripheral IVs in place No indication for central line DVT PROPHYLAXIS - Chronic anticoagulation with Eliquis (apixaban) as an outpatient for paroxysmal atrial fibrillation ERICA gallagher SCDs CCT: 50 minutes independent of any procedures Thank you for including us in the care of this patient. Please refer to Dr. Hollis's addendum for further recommendations. (2) SBO (small bowel obstruction): POD #0 for right inguinal incarcerated hernia Surgeon: Dr. Dash Continue n.p.o. per surgery No further nausea or vomiting Continue to monitor (3) Atrial fibrillation: Eliquis as an outpatient Currently atrial fibrillation with rate control Discussion with daughter at length who is POA * No intervention per daughter * Further discussion tomorrow regarding anticoagulation and schedule to restart (4) CAD (coronary artery disease): History of CABG x4 History of AICD No recent issues with pacemaker No chest pain or tightness Continue home medications (5) Chronic combined systolic and diastolic CHF (congestive heart failure): No lower extremity edema or other signs of CHF exacerbation Continue to monitor empirically (6) Dementia: Discussion with daughter indicates progressive dementia over the last several months Daughter feels that patient is not safe to go home and prefers fpc Patient's is adamant the patient go home * Daughter concerned that mother does not realize the gravity of her father situation and comorbid conditions PT/OT evaluation and treatment We will leave disposition up to primary team (7) DVT prophylaxis: Chemical prophylaxis per Dr. Dash Consider ERICA hose Consider SCDs Thank you for including us in the care of this patient. Please refer to Dr. Hollis's addendum for further recommendations Supervising Physician Co-Signing Physician Notes I have seen and examined this patient with Yonis montero PA-C and agree with his assessment and plan of care. We are going to continue with current plan of care as prescribed. Dr. Eve Hollis. History of Present Illness Reason for Consultation: Perioperative care s/p right inguinal hernia incarceration Attending Physician: Eric Dash MD History of Present Illness Attending: Dr. Hollis Is an 83-year-old male with a past medical history of atrial fibrillation on Eliquis, CAD with four-vessel CABG history, hypertension, gait disorder, BPH, chronic kidney disease, congestive heart failure combined systolic/diastolic, dementia. The patient has been suffering from increasing dementia over the last several months. He was camping at [facility] 2 weeks ago when he developed severe dehydration and was admitted for brief period for treatment. He has continued to camp there and at 2 AM this morning developed vomiting of b ilious material. The patient's called her daughter and explained the vomiting at which point the daughter called 911 and the patient was transported to [facility] via ambulance. In the emergency department the patient was determined to have a small bowel obstruction secondary to incarcerated right inguinal hernia. The patient was taken to the operating theater by Dr. Dash. The patient did well and had no complications with an estimated blood loss of 15 mL. Due to his complex past medical history, the patient was transferred to the intensive care unit for further management. The patient does demonstrate some dementia and is unable to provide date of and is unclear as to whether he was at the hospital or at home. He can give his name and his 's name. He is drowsy but does follow simple commands. The patient denies nausea or vomiting. He has no fever or chills. Pain is generally controlled. He is only able to give a limited review of systems secondary to his medical status. He denies any other acute complaints. I did have a 15-minute discussion with the patient's daughter and POA by telephone. She was updated and all questions were answered to her satisfaction. She will bring her mother to visit tomorrow midmorning. Allergies Allergy/AdvReac Type Severity Reaction Status Date / Time diazepam AdvReac Unknown . Verified 09/07/18 04:48 Home Medications Home Medications Medication Instructions Recorded Confirmed Type Eliquis 5 mg PO BID 04/18/18 09/07/18 History aspirin [Aspirin Low Dose] 81 mg PO DAILY 04/18/18 09/07/18 History atorvastatin 80 mg PO HS 04/18/18 09/07/18 History carvedilol 25 mg PO BID 04/18/18 09/07/18 History finasteride 5 mg PO DAILY 04/18/18 09/07/18 History lisinopril 20 mg PO DAILY 04/18/18 09/07/18 History memantine 5 mg PO BID 04/18/18 09/07/18 History terazosin 5 mg PO HS 04/18/18 09/07/18 History amlodipine [Norvasc] 5 mg PO QAM 30 Days #30 tab 08/28/18 09/07/18 Rx Aristocort 1 applic EXT BID 09/07/18 09/07/18 History Patient History Medical History Hernia, inguinal, recurrent Dementia (Chronic) Atrial fibrillation (Chronic) Left carotid artery stenosis (Chronic) 50-69% LICA stenosis CAD (coronary artery disease) (Chronic) PAF (paroxysmal atrial fibrillation) (Chronic) 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 Father No problems noted. Other Coronary heart disease Social History Preferred Language: Upper Sorbian Communication Ability: hx dementi Communication Ability Comment: hx dementia Dental Therapist Required: No Beliefs That Will Affect Care: None marital status: Current Living Situation: Spouse Current Living Situation Comment: living at home current occupational status: retired Other Information That Helps Us Care for You: No Feels Safe at Home: Yes Safety Concerns: Feels Safe At This Time Smoking Status: Never smoker Do You Dip or Chew Tobacco: No Second Hand Exposure: No Tobacco Cessation Education Requested by Patient: No Hx Alcohol Use: Yes Hx Substance Use: No Review of Systems Review of Systems: Unobtainable due to reduced consciousness Patient seen immediately postoperatively and remains sedated. He awakens easily but is able to only follow simple commands. Physical Exam Physical Exam: GENERAL : No acute distress. Patient is drowsy EYES: No icterus, gaze conjugate. Pupils equal round and reactive to light NOSE: No evidence of epistaxis. MOUTH: No lesions or candidiasis. Mucosa is dry. Tongue is midline. No facial droop NECK: Supple. No appreciation of stridor or carotid bruits LUNGS: CTA B/L, no wheezes, rales or rhonchi HEART: Irregular, irregular in the 70s ABDOMEN: Soft, NT, ND, BS considerably hypoactive. Dressing dry and intact at the right inguinal area EXTREMITIES: No LE edema, pedal pulses intact. NEURO: Patient awakens to voice. Follows very simple commands but is somewhat lethargic immediately postoperative. Pupils equal round and reactive to light. Tongue midline. No facial droop. Results & Data Vital Signs (Past 12 Hours) Vital Signs Temp Pulse Pulse Pulse Resp BP BP 09/07/18 16:00 37 C 77 20 158/92 H 09/07/18 14:00 36.9 C 86 18 144/68 H 09/07/18 12:00 37 C 79 18 L 16 158/91 H 09/07/18 11:00 36.9 C 94 H 18 159/98 H 09/07/18 10:40 36.8 C 82 14 158/98 H 09/07/18 10:30 36.8 C 82 14 151/89 H 09/07/18 10:20 80 13 151/82 H 09/07/18 10:10 36.7 C 96 H 19 151/89 H 09/07/18 10:00 83 18 156/93 H 09/07/18 09:57 111 H 151/94 H 09/07/18 09:50 111 H 18 145/96 H 09/07/18 09:40 36.7 C 121 H 18 159/107 H 09/07/18 09:33 36.7 C 118 H 18 149/100 H 09/07/18 08:11 36.5 C 75 18 160/95 H 09/07/18 07:28 77 16 148/88 H 09/07/18 05:42 72 20 155/83 H 09/07/18 05:06 36.8 C 85 20 128/89 Pulse Ox 09/07/18 16:00 97 09/07/18 14:00 98 09/07/18 12:00 100 09/07/18 11:00 100 09/07/18 10:40 99 09/07/18 10:30 99 09/07/18 10:20 98 09/07/18 10:10 98 09/07/18 10:00 99 09/07/18 09:57 09/07/18 09:50 100 09/07/18 09:40 100 09/07/18 09:33 100 09/07/18 08:11 96 09/07/18 07:28 09/07/18 05:42 98 09/07/18 05:06 95 Laboratory Results 09/07/18 04:47 09/07/18 04:[address] SCAN OF THE ABDOMEN AND PELVIS WITH IV CONTRAST CLINICAL HISTORY: Mid abdominal pain. COMPARISON STUDY: Pelvic radiographs dated 04/18/2018. TECHNIQUE: Following the IV administration of 92 cc of Optiray 320, CT scan of the abdomen and pelvis is performed from the lung bases to the proximal femora. Images are reviewed in the axial, sagittal, and coronal planes. IV contrast was administered without complication. A dose lowering technique was utilized adhering to the principles of ALARA. The examination is degraded by motion artifact, as well as by streak artifact from the arms which could not be elevated above the abdomen. CT DOSE: 566.09 mGy.cm FINDINGS: Lung bases: The patient is status post midline sternotomy. The heart is enlarged and without pericardial effusion. The coronary arteries are densely calcified. Pacemaker leads are noted. The lung bases are clear noting bibasilar scarr ing/atelectasis. Liver: The contrast-enhanced liver is normal in size, contour, and attenuation. There is no intrahepatic biliary ductal dilatation. The hepatic veins and portal veins are patent. Gallbladder: There are calcified gallstones, with no CT evidence of acute cholecystitis. Gallstones are suggested within the cystic duct. Spleen: Normal in size and attenuation. Pancreas: Atrophic and grossly unremarkable. Adrenal glands: Unremarkable. Kidneys: The contrast enhanced kidneys demonstrate cortical atrophy and are without hydronephrosis. The kidneys enhance symmetrically. Bilateral renal cysts measure up to 3.3 cm. Additional subcentimeter cortical hypodensities also likely represent cysts but are too small for definitive characterization. Abdominal vasculature: There is advanced atherosclerotic calcification of the abdominal aorta. 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 Bowel: The small bowel loops are distended and fluid-filled measuring up to 4.2 cm in diameter. The transition point related to an incarcerated right inguinal hernia (axial image #[id number]). There is trace interloop fluid. No focally thick walled bowel loops are identified. There is no pneumatosis intestinalis or portal venous gas. A duodenal diverticulum is noted. Fecal retention is noted in the rectosigmoid colon. There is advanced colonic diverticulosis without CT evidence of acute diverticulitis. The appendix is not identified. Peritoneum: There is trace perihepatic and perisplenic ascites. No intraperitoneal free air is seen. Lymphadenopathy: None. Pelvic viscera: The prostate gland is markedly enlarged measuring 7 cm in diameter. There is median lobe hypertrophy. The bladder wall is thickened and trabeculated indicating chronic outlet obstruction. A 7 mm calculus is noted in the bladder lumen. Skeletal structures: The skeletal structures are osteopenic. There is moderate lumbosacral spondylosis. No lytic or blastic lesions are seen. IMPRESSION: 1. Findings are consistent with a small bowel obstruction secondary to an incarcerated loop of small bowel within a right inguinal hernia. 2. There is a small volume of abdominopelvic ascites. No intraperitoneal free air is seen. No focally thick walled bowel loops are identified, and there is no pneumatosis intestinalis or portal venous gas. 3. Cholelithiasis, with gallstones noted in the cystic duct. There is no CT evidence of acute cholecystitis. 4. Advanced colonic diverticulosis without CT evidence of acute diverticulitis. 5. Cardiomegaly. 6. Prostatomegaly with evidence of chronic bladder outlet obstruction. 7. Additional findings as above. Electronically signed by: Yonis Knapp M.D. 09/07/2018 9:29 AM Dictated: 09/07/18 0814 Transcribed: 09/07/18 0905 PG Care Time/CCT Total # of Minutes Spent Total Time Spent with Patient: Total time spent is greater than 50% in coordination of care (as documented) at patient's floor/unit and/or counseling patient: 50 minutes including discussion with Dr. Hollis and telephone discussion with daughter and POA
[2018-09-07] MEDS: TERAZOSIN HCL 5 MG CAP PO SCH (20:37)
[2018-09-07] MEDS: CARVEDILOL 25 MG TAB PO SCH (20:38)
[2018-09-07] MEDS: APIXABAN 5 MG TABLET PO SCH (20:38)
[2018-09-07] MEDS: MEMANTINE HCL 5 MG TAB PO SCH (20:38)
--- NOTE | 2018-09-08 06:12 | Surgery Progress Note ---
Date of Service September 08, 2018 Assessment & Plan (1) Hernia, inguinal, recurrent: 09/08/18 POD #1 will increase diet as tolerated hold Eliquis for another 48-72 hours increase activity out of bed in chair Subjective no obvious complaints this am last night told nurses that broth tasted like " s_ _t" Review of Systems Review of Systems: no chnage Physical Exam Physical Exam: easily awakens to baseline no abdominal findings abd soft moderate amount of bloody drainage and cloths from omar sub cut in groin(on Eliquis) Results & Data Vital Signs (Past 12 Hours) Vital Signs Temp Pulse Resp BP Pulse Ox 09/08/18 01:01 101 H 18 95 09/08/18 01:00 101 H 21 138/90 95 09/08/18 00:30 75 22 95 09/08/18 00:01 76 16 93 09/08/18 00:00 36.9 C 75 15 121/78 96 09/07/18 23:30 77 15 94 09/07/18 23:00 76 22 132/72 95 09/07/18 22:30 78 16 95 09/07/18 22:01 81 16 94 09/07/18 22:00 82 16 130/73 96 09/07/18 21:30 77 14 97 09/07/18 21:00 84 20 140/76 96 09/07/18 20:30 77 19 96 09/07/18 20:01 92 H 20 95 09/07/18 20:00 37.1 C 85 16 133/87 96 09/07/18 19:30 96 H 25 H 95 09/07/18 19:01 85 18 96 09/07/18 19:00 77 13 143/98 H 96 09/07/18 18:30 84 13 95 will check lab this am vitals noted
[2018-09-08] MEDS ORDERED: OXYCODONE/ACETAMINOPHEN 5mg/325mg TAB PO PRN (06:15)
[2018-09-08 06:33] LABS: Hematocrit (blood only) 33.7 % (42-52); Hemoglobin 11.8 g/dL (14.0-18.0); Mean Corpuscular Volume 89.4 fL (80-100); RDW Coefficient of Variation 14.4 % (11.5-14.5); RDW Standard Deviation 47.2 fL (36.4-46.3); Red Blood Count 3.77 M/uL (4.7-6.1); White Blood Count 8.87 K/uL (4.8-10.8)
[2018-09-08 07:01] LABS: Echinocytes 1+; Eosinophils # (auto) 0.02 K/uL (0-0.5); Eosinophils % (auto) 0.2 %; Immature Granulocytes # (auto) 0.01 K/uL (0.00-0.02); Immature Granulocytes % (auto) 0.1 %; Lymphocytes # (auto) 0.25 K/uL (1.2-3.4); Lymphocytes % (auto) 2.8 %; Mean Platelet Volume 9.9 fL (7.4-10.4); Monocytes % (auto) 11.3 %; Neutrophils # (auto) 7.59 K/uL (1.4-6.5); Neutrophils % (auto) 85.6 %; Platelet Count 96 K/uL (130-400)
[2018-09-08 07:14] LABS: BUN Creatinine Ratio 39.1 (10-20); Calcium 8.8 mg/dl (8.5-10.1); Creatinine Clr Calc Pharmacy 51.8 ml/min; Est GFR (African American) 77.3; Est GFR (Non-African American) 66.7; Potassium 3.5 mmol/L (3.5-5.1)
[2018-09-08] MEDS: PIPERACILLIN/TAZOBACTAM 3.375 GM in DEXTROSE 5% 100 ML IV SCH ×2 (07:44→15:20)
--- NOTE | 2018-09-08 07:44 | Anesthesiology Progress Note ---
Date of Service September 08, 2018 Anesthesia Post Procedure Vital Signs Vital Signs: Temp Pulse Pulse Pulse Resp BP BP 09/08/18 06:01 102 H 13 09/08/18 06:00 76 15 128/86 09/08/18 05:30 79 15 09/08/18 05:01 101 H 18 09/08/18 05:00 79 22 143/83 H 09/08/18 04:30 75 18 09/08/18 04:01 77 18 09/08/18 04:00 36.9 C 80 13 114/75 09/08/18 03:30 76 21 09/08/18 03:01 102 H 15 09/08/18 03:00 101 H 18 132/80 09/08/18 02:30 78 15 09/08/18 02:01 77 14 09/08/18 02:00 77 13 99/73 L 09/08/18 01:30 76 17 09/08/18 01:01 101 H 18 09/08/18 01:00 101 H 21 138/90 09/08/18 00:30 75 22 09/08/18 00:01 76 16 09/08/18 00:00 36.9 C 75 15 121/78 09/07/18 23:30 77 15 09/07/18 23:00 76 22 132/72 09/07/18 22:30 78 16 09/07/18 22:01 81 16 09/07/18 22:00 82 16 130/73 09/07/18 21:30 77 14 09/07/18 21:00 84 20 140/76 09/07/18 20:30 77 19 09/07/18 20:01 92 H 20 09/07/18 20:00 37.1 C 85 16 133/87 09/07/18 19:30 96 H 25 H 09/07/18 19:01 85 18 09/07/18 19:00 77 13 143/98 H 09/07/18 18:30 84 13 09/07/18 18:00 37 C 84 18 158/93 H 09/07/18 16:00 37 C 77 20 158/92 H 09/07/18 14:00 36.9 C 86 18 144/68 H 09/07/18 12:00 37 C 79 18 L 16 158/91 H 09/07/18 11:00 36.9 C 94 H 18 159/98 H 09/07/18 10:40 36.8 C 82 14 158/98 H 09/07/18 10:30 36.8 C 82 14 151/89 H 09/07/18 10:20 80 13 151/82 H 09/07/18 10:10 36.7 C 96 H 19 151/89 H 09/07/18 10:00 83 18 156/93 H 09/07/18 09:57 111 H 151/94 H 09/07/18 09:50 111 H 18 145/96 H 09/07/18 09:40 36.7 C 121 H 18 159/107 H 09/07/18 09:33 36.7 C 118 H 18 149/100 H 09/07/18 08:11 36.5 C 75 18 160/95 H Pulse Ox 09/08/18 06:01 95 09/08/18 06:00 95 09/08/18 05:30 94 09/08/18 05:01 96 09/08/18 05:00 96 09/08/18 04:30 95 09/08/18 04:01 95 09/08/18 04:00 95 09/08/18 03:30 96 09/08/18 03:01 96 09/08/18 03:00 97 09/08/18 02:30 95 09/08/18 02:01 95 09/08/18 02:00 95 09/08/18 01:30 95 09/08/18 01:01 95 09/08/18 01:00 95 09/08/18 00:30 95 09/08/18 00:01 93 09/08/18 00:00 96 09/07/18 23:30 94 09/07/18 23:00 95 09/07/18 22:30 95 09/07/18 22:01 94 09/07/18 22:00 96 09/07/18 21:30 97 09/07/18 21:00 96 09/07/18 20:30 96 09/07/18 20:01 95 09/07/18 20:00 96 09/07/18 19:30 95 09/07/18 19:01 96 09/07/18 19:00 96 09/07/18 18:30 95 09/07/18 18:00 95 09/07/18 16:00 97 09/07/18 14:00 98 09/07/18 12:00 100 09/07/18 11:00 100 09/07/18 10:40 99 09/07/18 10:30 99 09/07/18 10:20 98 09/07/18 10:10 98 09/07/18 10:00 99 09/07/18 09:57 09/07/18 09:50 100 09/07/18 09:40 100 09/07/18 09:33 100 09/07/18 08:11 96 Pain Intensity Abdomen: Pain Intensity: 4 Notes Mental Status: alert / awake / arousable and participated in evaluation Patient Amnestic to Procedure: Yes Nausea / Vomiting: adequately controlled Pain: adequately controlled Airway Patency, RR, SpO2: stable & adequate BP & HR: stable & adequate Hydration State: stable & adequate Anesthetic Complications: no major complications apparent and Pt Satisfied with anesthetic care
[2018-09-08] MEDS: MEMANTINE HCL 5 MG TAB PO SCH ×2 (08:56→21:06)
[2018-09-08] MEDS: FINASTERIDE 5 MG TAB PO SCH (08:57)
[2018-09-08] MEDS ORDERED: ASPIRIN 81 MG ECTAB PO SCH (09:00)
[2018-09-08] MEDS: LACTATED RINGER'S 1,000 ML IV SCH ×2 (09:00→13:44)
--- NOTE | 2018-09-08 09:45 | Critical Care Progress Note ---
Date of Service September 08, 2018 Assessment & Plan (1) Admitted to intensive care unit: 1. Neurology: The patient has dementia overall remains stable not in any acute distress and he is alert awake he is arousable he follows simple commands. There is no neurological deficit at this time. 2. Respiratory: The patient overall remains stable and is oxygenating in the mid to high 90s on room air. He is breathing comfortably and there are no any other concern at this time. His chest x-ray which was done initially did not reveal any infiltrate or effusion. 3. Cardiac:History of CAD with CABG x4, AICD implant, atrial fibrillation, chronic anticoagulation, hypertension Continue home medications Patient on Eliquis as an anticoagulant -which was discontinued because of right inguinal hematoma according to the surgery. No chest pain or tightness EKG with atrial fibrillation which is rate controlled Continue to monitor on telemetry. 4. Gastrointestinal: The patient is post right inguinal hernia repair. He had hematoma this morning secondary to Eliquis which was evacuated by Dr. Dash. The patient also had some emesis this morning and he received Zofran and he seems to be comfortable at this time. He is still not able to take any p.o. intake. 5. Renal: Overall patient remains stable and he is also putting out urine. His BUN is 40 today and creatinine was 1.02. Will monitor electrolytes closely. Also urine output. 6. Endocrine: Glucose is stable. The patient is on glycemic control. 7. Hematology: The H&H remains stable but there is reduction in the platelet counts. Patient is not on any heparin. He is on DVT prophylaxis SCD, and we are going to monitor his platelets very closely. The patient also has ERICA hose. 8. Lines: The patient has peripheral lines and no indication for central line at this time. He is hemodynamically stable. The patient is on Zosyn and not on any PPI. Overall remained stable and we are going to continue with all other management as prescribed. I have discussed with the surgery attending Dr. Dash. I have spent greater than 35 minutes of critical care time. (2) Hernia, inguinal, recurrent: (3) DVT prophylaxis: (4) Acute renal insufficiency: (5) Dementia: (6) Atrial fibrillation: (7) History of cardiac pacemaker: (8) Hypertension: Subjective 83-year-old male who has past medical history significant for atrial fibrillation and he was on Eliquis, coronary artery disease with four-vessel CABG history, hypertension, chronic kidney disease and congestive heart failure was admitted with the right inguinal incarcerated hernia. The patient was diagnosed with small bowel obstruction secondary to incarcerated right inguinal hernia. The patient was taken to OR by Dr. Dash. Overnight patient was started on Eliquis. Patient had right inguinal hematoma which was drained by the surgery. Currently he is hemodynamically stable and resting comfortably. He still looks confused and he has history of dementia as well. His H&H is stable. The patient denies having any chest pain or abdominal pain or any nausea or vomiting. This morning he was nauseous and was not able to eat anything. Review of Systems Review of Systems: Unable to obtain his review of system because of his current medical condition but overall he denies having any chest pain or shortness of breath or abdominal pain. As mentioned about he had some nausea and received Zofran. Physical Exam Physical Exam: Elderly male resting comfortably in the bed not in any acute distress. HEENT: Pupils are reactive to light and accommodation. Mouth is moist no rash no lesions. Neck: The neck is supple. No JVD, no cervical or supraclavicular adenopathy. Chest: The patient is moving air bilaterally. Bilateral clear lungs anteriorly, no wheezing no crackles no rhonchi heard. Heart: S1-S2 heard, tachycardia, no murmur heard. No gallop heard. Abdomen: The abdomen is soft, no tender no mass felt, bowel sounds are positive. Right inguinal area is well dressed no active bleeding, no hematoma. Skin: No rash, no lesions seen. Neurologic: The patient is alert and awake and follows simple commands. He is also moving all his extremities. Lymphatic: There is no cervical, supraclavicular, inguinal lymphadenopathy. Results & Data Vital Signs (Past 12 Hours) Vital Signs Temp Pulse Resp BP Pulse Ox 09/08/18 06:01 102 H 13 95 09/08/18 06:00 76 15 128/86 95 09/08/18 05:30 79 15 94 09/08/18 05:01 101 H 18 96 09/08/18 05:00 79 22 143/83 H 96 09/08/18 04:30 75 18 95 09/08/18 04:01 77 18 95 07/23/19 04:00 36.9 C 80 13 114/75 95 09/08/18 03:30 76 21 96 09/08/18 03:01 102 H 15 96 09/08/18 03:00 101 H 18 132/80 97 09/08/18 02:30 78 15 95 09/08/18 02:01 77 14 95 09/08/18 02:00 77 13 99/73 L 95 09/08/18 01:30 76 17 95 09/08/18 01:01 101 H 18 95 09/08/18 01:00 101 H 21 138/90 95 09/08/18 00:30 75 22 95 09/08/18 00:01 76 16 93 09/08/18 00:00 36.9 C 75 15 121/78 96 09/07/18 23:30 77 15 94 09/07/18 23:00 76 22 132/72 95 09/07/18 22:30 78 16 95 09/07/18 22:01 81 16 94 09/07/18 22:00 82 16 130/73 96 09/07/18 21:30 77 14 97 Laboratory Results 09/08/18 06:18 09/08/18 06:[address] of the abdomen and pelvis:IMPRESSION: 1. Findings are consistent with a small bowel obstruction secondary to an incarcerated loop of small bowel within a right inguinal hernia. 2. There is a small volume of abdominopelvic ascites. No intraperitoneal free air is seen. No focally thick walled bowel loops are identified, and there is no pneumatosis intestinalis or portal venous gas. 3. Cholelithiasis, with gallstones noted in the cystic duct. There is no CT evidence of acute cholecystitis. 4. Advanced colonic diverticulosis without CT evidence of acute diverticulitis. 5. Cardiomegaly. 6. Prostatomegaly with evidence of chronic bladder outlet obstruction. 7. Additional findings as above. Electronically signed by: Yonis Knapp M.D. 09/07/2018 9:29 AM Medications Administered Current Inpatient Medications Apixaban (Eliquis) 5 mg PO BID [facility] Stop: 10/07/18 20:59 Last Admin: 09/07/18 20:38 Dose: 5 mg Documented by: Aspirin (Ecotrin Ectab) 81 mg PO DAILY [facility] Stop: 10/08/18 08:59 Last Admin: 09/08/18 08:57 Dose: Not Given Documented by: Carvedilol (Coreg) 25 mg PO BID [facility] Stop: 10/07/18 20:59 Last Admin: 09/07/18 20:38 Dose: 25 mg Documented by: Finasteride (Proscar) 5 mg PO DAILY [facility] Stop: 10/08/18 08:59 Last Admin: 09/08/18 08:57 Dose: 5 mg Documented by: Lactated Ringer's (Lr) 1,000 mls @ 50 mls/hr IV .Q20H [facility] Stop: 10/07/18 11:05 Last Admin: 09/08/18 09:00 Dose: Not Given Documented by: Piperacillin Sod/Tazobactam (Sod 3.375 gm/ Dextrose) 115 mls @ 28.75 mls/hr IV Q8H [facility]; Protocol Stop: 09/17/18 15:59 Last Admin: 09/08/18 07:44 Dose: 28.8 mls/hr Documented by: Memantine (Namenda) 5 mg PO BID [facility] Stop: 10/07/18 20:59 Last Admin: 09/08/18 08:56 Dose: 5 mg Documented by: Miscellaneous Information (Consult) 1 ea N/A UD PRN PRN Reason: Consult Stop: 10/07/18 11:05 Ondansetron HCl (Zofran) 4 mg IV Q4H PRN PRN Reason: Nausea And Vomiting Stop: 10/07/18 11:05 Last Admin: 09/08/18 08:04 Dose: 4 mg Documented by: Oxycodone/Acetaminophen (Percocet 5mg/325mg) 1 tab PO Q4H PRN PRN Reason: Pain Stop: 09/22/18 06:14 Terazosin HCl (Hytrin) 5 mg PO HS [facility] Stop: 10/07/18 20:59 Last Admin: 09/07/18 20:37 Dose: 5 mg Documented by: PG Care Time/CCT Critical Care Time: Yes Total Critical Care Time: 35
[2018-09-08] MEDS: CARVEDILOL 25 MG TAB PO SCH ×2 (10:28→21:05)
--- NOTE | 2018-09-08 11:36 | Cardiology Consultation ---
Date of Consultation September 08, 2018 Assessment & Plan (1) NSVT (nonsustained ventricular tachycardia): (2) Ischemic cardiomyopathy: (3) Chronic systolic (congestive) heart failure: (4) Chronic atrial fibrillation: (5) History of automatic internal cardiac defibrillator (AICD): (6) Hernia, inguinal, recurrent: Patient postoperative day 1 inguinal hernia repair. 20 beat amy of nonsustained ventricular tachycardia at a rate of 100 bpm recorded without associated symptoms. Recommend maintaining serum potassium greater than 4.0. Serum magnesium level ordered. Will supplement electro lites as needed. Continue beta-gilberto therapy. Consider addition of intravenous amiodarone with recurrent salvos of sustained ventricular tachycardia. Patient has a known history of ischemic cardia myopathy and appears compensated from heart failure perspective. Continue current medications. No role for diuretic therapy currently, however, will monitor volume status carefully during hospitalization to avoid volume overload/congestive heart failure. Restart Eliquis when bleeding risk is deemed acceptable by the surgical service. Thank you for allowing me to participate in the care of your patient. I will continue to follow during hospitalization. History of Present Illness Reason for Consultation: Ventricular tachycardia, ischemic cardia myopathy Requesting Physician: Dr. Hollis Attending Physician: Eric Dash MD History of Present Illness 83-year patient admitted with incarcerated right inguinal hernia. Taken urgently to the operating room last night. Complex history listed below. Surgery uncomplicated aside from groin hematoma. Eliquis placed on hold. Patient is a poor historian and hard of hearing. Medical records obtained from [facility]. Patient carries history of coronary disease with coronary artery bypass grafting 2010, atrial flutter with ablation 2013, atrial fibrillation status post Sharma maze 2010 as well as pacemaker upgrade to ICD June 2016. Currently resting comfortably. Did not receive dose of a.m. carvedilol until after 10 AM secondary to hypotension. Telemetry reviewed demonstrates frequent premature ventricular complexes, couplets, and rare 3 beat salvos of nonsustained ventricular tachycardia. There is an isolated 20 beat amy of nonsustained ventricular tachycardia at a rate of 100 bpm. There were no blood pressure changes or loss of consciousness during that episode. No ICD therapies delivered. The patient spontaneously reverted to atrial fibrillation/flutter. His rates are fairly controlled. Blood pressure improving. He is awake and alert however hard of hearing and a poor historian. Denies chest pain, palpitations, shortness of breath, or lightheadedness. Tolerating a.m. clear liquids and medications. 2D echocardiogram performed 08/27/2018 demonstrates severe LV systolic dysfunction with ejection fraction 30 to 35%, mild aortic regurgitation, moderate to severe mitral regurgitation, mild tricuspid regurgitation, and aortic valve sclerosis without stenosis per Allergies Allergy/AdvReac Type Severity Reaction Status Date / Time diazepam AdvReac Unknown . Verified 09/07/18 04:48 Home Medications Home Medications Medication Instructions Recorded Confirmed Type Eliquis 5 mg PO BID 04/18/18 09/07/18 History aspirin [Aspirin Low Dose] 81 mg PO DAILY 04/18/18 09/07/18 History atorvastatin 80 mg PO HS 04/18/18 09/07/18 History carvedilol 25 mg PO BID 04/18/18 09/07/18 History finasteride 5 mg PO DAILY 04/18/18 09/07/18 History lisinopril 20 mg PO DAILY 04/18/18 09/07/18 History memantine 5 mg PO BID 04/18/18 09/07/18 History terazosin 5 mg PO HS 04/18/18 09/07/18 History amlodipine [Norvasc] 5 mg PO QAM 30 Days #30 tab 08/28/18 09/07/18 Rx Aristocort 1 applic EXT BID 09/07/18 09/07/18 History acetaminophen [Tylenol Extra 1,000 mg PO Q6H PRN #1 tab 09/10/18 Rx Strength] Patient History Medical History Hernia, inguinal, recurrent Dementia (Chronic) Atrial fibrillation (Chronic) Left carotid artery stenosis (Chronic) 50-69% LICA stenosis CAD (coronary artery disease) (Chronic) PAF (paroxysmal atrial fibrillation) (Chronic) 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 Father No problems noted. Other Coronary heart disease Social History Preferred Language: Dominican Communication Ability: Impaired Communication Ability Comment: hx dementia Needle Punch Operator Required: No Beliefs That Will Affect Care: None marital status: Current Living Situation: Spouse Current Living Situation Comment: living at home current occupational status: retired Other Information That Helps Us Care for You: No Feels Safe at Home: Yes Safety Concerns: Feels Safe At This Time Smoking Status: Never smoker Do You Dip or Chew Tobacco: No Second Hand Exposure: No Tobacco Cessation Education Requested by Patient: No Hx Alcohol Use: Yes Hx Substance Use: No Review of Systems Review of Systems: Unobtainable due to cognitive status Physical Exam Physical Exam: General: NAD, awake and alert, hard of hearing. HEENT: Normocephalic. Atraumatic. Conjunctiva pink, no scleral icterus. Neck: No carotid bruits, the carotid upstrokes are brisk. No JVD. No HJR Heart: Irregular rhythm, normal S1 and S2, no murmur appreciated. PMI is not displaced. No RV heave. Lungs: Clear bilateral without rales , rhonchi, or wheeze. Abdomen: Normal bowel sounds. Soft. Nontender. No masses or organomegaly. No abdominal bruits. Extremities: Right groin surgical dressing clean, dry, intact. No clubbing, cyanosis, or edema. Pulses: radial=2/4, Dorsalis pedis =2/4, posterior tibial=2/4. Neuro: Cranial nerves grossly intact. No focal motor deficit. Results & Data Vital Signs (Past 12 Hours) Vital Signs Temp Pulse Resp BP Pulse Ox 09/08/18 09:00 81 16 109/72 95 09/08/18 08:00 37.0 C 90 20 75/55 L 95 09/08/18 07:00 77 13 124/79 95 09/08/18 06:01 102 H 13 95 09/08/18 06:00 76 15 128/86 95 09/08/18 05:30 79 15 94 09/08/18 05:01 101 H 18 96 09/08/18 05:00 79 22 143/83 H 96 09/08/18 04:30 75 18 95 09/08/18 04:01 77 18 95 09/08/18 04:00 36.9 C 80 13 114/75 95 09/08/18 03:30 76 21 96 09/08/18 03:01 102 H 15 96 09/08/18 03:00 101 H 18 132/80 97 09/08/18 02:30 78 15 95 09/08/18 02:01 77 14 95 09/08/18 02:00 77 13 99/73 L 95 09/08/18 01:30 76 17 95 09/08/18 01:01 101 H 18 95 09/08/18 01:00 101 H 21 138/90 95 09/08/18 00:30 75 22 95 09/08/18 00:01 76 16 93 09/08/18 00:00 36.9 C 75 15 121/78 96 Laboratory Results Laboratory Results - last 24 hr 09/07/18 09/07/18 09/08/18 11:41 16:19 00:56 WBC RBC Hgb Hct MCV MCH MCHC RDW Std Deviation RDW Coeff of Skylar Plt Count MPV Immature Gran % (Auto) Neut % (Auto) Lymph % (Auto) [place] % (Auto) Eos % (Auto) Baso % (Auto) Immature Gran # (Auto) Neut # (Auto) Lymph # (Auto) [place] # (Auto) Eos # (Auto) Baso # (Auto) Echinocytes Sodium Potassium Chloride Carbon Dioxide Anion Gap BUN Creatinine Est Cr Clr Drug Dosing Est GFR ( Amer) Est GFR (Non-Af Amer) BUN/Creatinine Ratio Glucose POC Glucose 114 H 180 H Calcium Magnesium Nasal Screen MRSA (PCR) Negative 09/08/18 09/08/18 09/08/18 06:18 06:18 06:20 WBC 8.87 RBC 3.77 L Hgb 11.8 L Hct 33.7 L MCV 89.4 MCH 31.3 MCHC 35.0 RDW Std Deviation 47.2 H RDW Coeff of Skylar 14.4 Plt Count 96 L MPV 9.9 Immature Gran % (Auto) 0.1 Neut % (Auto) 85.6 Lymph % (Auto) 2.8 [place] % (Auto) 11.3 Eos % (Auto) 0.2 Baso % (Auto) 0.0 Immature Gran # (Auto) 0.01 Neut # (Auto) 7.59 H Lymph # (Auto) 0.25 L [place] # (Auto) 1.00 H Eos # (Auto) 0.02 Baso # (Auto) 0.00 Echinocytes 1+ Sodium 139 Potassium 3.5 Chloride 105 Carbon Dioxide 28 Anion Gap 6.0 BUN 40 H Creatinine 1.02 Est Cr Clr Drug Dosing 51.8 Est GFR ( Amer) 77.3 Est GFR (Non-Af Amer) 66.7 BUN/Creatinine Ratio 39.1 H Glucose 108 H POC Glucose 116 H Calcium 8.8 Magnesium Nasal Screen MRSA (PCR) 09/08/18 09/08/18 11:24 11:30 WBC RBC Hgb Hct MCV MCH MCHC RDW Std Deviation RDW Coeff of Skylar Plt Count MPV Immature Gran % (Auto) Neut % (Auto) Lymph % (Auto) [place] % (Auto) Eos % (Auto) Baso % (Auto) Immature Gran # (Auto) Neut # (Auto) Lymph # (Auto) [place] # (Auto) Eos # (Auto) Baso # (Auto) Echinocytes Sodium Potassium Chloride Carbon Dioxide Anion Gap BUN Creatinine Est Cr Clr Drug Dosing Est GFR ( Amer) Est GFR (Non-Af Amer) BUN/Creatinine Ratio Glucose POC Glucose 164 H Calcium Magnesium Pending Nasal Screen MRSA (PCR)
[2018-09-08] MEDS: POTASSIUM CHLORIDE / WTR 10 MEQ/100 ML PLCT IV SCH ×4 (12:09→15:15)
[2018-09-08] MEDS ORDERED: ACETAMINOPHEN 325 MG TAB PO PRN (18:36)
[2018-09-08] MEDS: ATORVASTATIN 40 MG TAB PO SCH (21:05)
[2018-09-08] MEDS: TERAZOSIN HCL 5 MG CAP PO SCH (21:06)
[2018-09-09] MEDS: LACTATED RINGER'S 1,000 ML IV SCH ×2 (00:10→10:48)
[2018-09-09] MEDS: PIPERACILLIN/TAZOBACTAM 3.375 GM in DEXTROSE 5% 100 ML IV SCH ×2 (00:11→07:55)
--- NOTE | 2018-09-09 07:54 | Surgery Progress Note ---
Date of Service September 09, 2018 Assessment & Plan (1) Hernia, inguinal, recurrent: 09/09/18 POD#2 omar drain from incision removed increase activity as per cardiology diet as tolerated 09/08/18 POD #1 will increase diet as tolerated hold Eliquis for another 48-72 hours increase activity out of bed in chair Subjective voices no complaints Review of Systems Review of Systems: denies nausea or abd pain Physical Exam Physical Exam: much more alert abd soft less echhymosis and hematoma in incision Results & Data Vital Signs (Past 12 Hours) Vital Signs Temp Pulse Resp BP Pulse Ox 09/09/18 06:01 84 15 97 09/09/18 06:00 92 H 16 125/90 98 09/09/18 05:01 79 20 97 09/09/18 05:00 72 23 143/83 H 98 09/09/18 04:01 36.7 C 92 H 14 138/64 97 09/09/18 03:00 72 17 133/78 95 09/09/18 02:00 79 15 127/75 98 09/09/18 01:00 80 17 108/65 97 09/09/18 00:00 36.5 C 79 15 112/78 96 09/08/18 23:27 74 09/08/18 23:01 78 19 128/73 97
[2018-09-09] MEDS: MEMANTINE HCL 5 MG TAB PO SCH ×2 (07:56→21:16)
[2018-09-09] MEDS: CARVEDILOL 25 MG TAB PO SCH ×2 (07:56→21:14)
[2018-09-09] MEDS: FINASTERIDE 5 MG TAB PO SCH (07:56)
[2018-09-09 09:09] LABS: Hematocrit (blood only) 31.7 % (42-52); Hemoglobin 10.6 g/dL (14.0-18.0); Mean Corpuscular Hgb Conc 33.4 g/dL (32-36); Mean Corpuscular Volume 89.8 fL (80-100); RDW Coefficient of Variation 14.1 % (11.5-14.5); RDW Standard Deviation 46.2 fL (36.4-46.3); Red Blood Count 3.53 M/uL (4.7-6.1); White Blood Count 8.13 K/uL (4.8-10.8)
[2018-09-09 09:11] LABS: Mean Platelet Volume 9.7 fL (7.4-10.4); Platelet Count 89 K/uL (130-400)
[2018-09-09 09:27] LABS: BUN Creatinine Ratio 35.1 (10-20); Calcium 8.7 mg/dl (8.5-10.1); Creatinine Clr Calc Pharmacy 61.5 ml/min; Est GFR (African American) 91.6; Est GFR (Non-African American) 79.1; Potassium 3.6 mmol/L (3.5-5.1)
[2018-09-09 09:29] LABS: Acanthocytes 2+; Anisocytosis Present; Eosinophils # (auto) 0.07 K/uL (0-0.5); Eosinophils % (auto) 0.9 %; Immature Granulocytes # (auto) 0.02 K/uL (0.00-0.02); Immature Granulocytes % (auto) 0.2 %; Lymphocytes # (auto) 0.36 K/uL (1.2-3.4); Lymphocytes % (auto) 4.4 %; Monocytes # (auto) 0.85 K/uL (0.11-0.59); Monocytes % (auto) 10.5 %; Neutrophils # (auto) 6.83 K/uL (1.4-6.5); Poikilocytosis Present
[2018-09-09] MEDS ORDERED: POTASSIUM CHLORIDE 10 MEQ TABCR PO STA (10:04)
--- NOTE | 2018-09-09 10:28 | Critical Care Progress Note ---
Date of Service September 09, 2018 Assessment & Plan (1) Admitted to intensive care unit: 1. Admitted to intensive care unit: 1. Neurology: The patient has dementia overall remains stable not in any acute distress and he is alert awake he is arousable he follows simple commands. There is no neurological deficit at this time. The patient remains more alert more awake and moves all extremities. 2. Respiratory: The patient overall remains stable and is oxygenating in the mid to high 90s on room air. He is breathing comfortably and there are no any other concern at this time. His chest x-ray which was done initially did not reveal any infiltrate or effusion. 3. Cardiac:History of CAD with CABG x4, AICD implant, atrial fibrillation, chronic anticoagulation, hypertension. The patient also had runs of V. tach during the day as well as during the night and he is followed by cardiology. The patient has AICD and at this stage there is no plan for amiodarone therapy, as per the cardiology. Continue home medications. The patient will be also replaced with potassium 40 of gadolinium p.o. and will maintain potassium 4 and a bowel as per recommendation from the cardiology. Patient on Eliquis as an anticoagulant -which was discontinued because of right inguinal hematoma according to the surgery. No chest pain or tightness EKG with atrial fibrillation which is rate controlled Continue to monitor on telemetry. 4. Gastrointestinal: The patient is post right inguinal hernia repair. He had hematoma this morning secondary to Eliquis which was evacuated by Dr. Dash yesterday. He is able to take p.o. intake. There is no nausea no vomiting. 5. Renal: Overall patient remains stable and he is also putting out urine. His BUN is 30 today and creatinine was 0.86. Will monitor electrolytes closely. Also urine output. The potassium is 3.6 and we are going to replace it with 40 of K. Dur p.o. now. 6. Endocrine: Glucose is stable. The patient is on glycemic control. 7. Hematology: The H&H remains stable 10.6/31.7 but there is reduction in the platelet counts to 89.. Patient is not on any heparin. He is on DVT prophylaxis SCD, and we are going to monitor his platelets very closely. The patient also has ERICA hose. 8. Lines: The patient has peripheral lines and no indication for central line at this time. He is hemodynamically stable. Overall the patient remains stable for transfer to PCU if is okay with surgery and cardiology. I have discussed with surgery Dr. Dash about the patient and he is very comfortable transferring the patient to PCU if it is okay with Dr. Almeida, cardiology. I have also discussed with Dr. Almeida about the case and he is very comfortable transferring the patient to PCU on current plan of care. He also mentioned about the runs of V. tach last night and yesterday but since the patient has AICD the cardiology is not much concerned about that at this time. He will be monitored very closely on telemetry stay and according to the recommendation we are going to make arrangement for the patient to be transferred to PCU. I have spent greater than 35 minutes of clinical time. (2) Chronic atrial fibrillation: (3) Chronic systolic (congestive) heart failure: (4) Ischemic cardiomyopathy: (5) NSVT (nonsustained ventricular tachycardia): (6) DVT prophylaxis: (7) Dementia: (8) Hernia, inguinal, recurrent: Subjective The patient was seen and examined by me.83-year-old male who has past medical history significant for atrial fibrillation and he was on Eliquis, coronary artery disease with four-vessel CABG history, hypertension, chronic kidney disease and congestive heart failure was admitted with the right inguinal incarcerated hernia. The patient was diagnosed with small bowel obstruction secondary to incarcerated right inguinal hernia. Today he seems to be very comfortable and denies having any distress. His breathing is also stable and he denies having any chest pain or palpitations. His right inguinal area looks clean and no bleeding. H&H remained stable. Review of Systems Review of Systems: The patient denies having any headache dizziness or synco pal episode. He does not have any chest pain or palpitations. No shortness of breath. No abdominal pain nausea vomiting. No pain in his operated area. Also denies having any swollen extremities. Overall seems to be doing better. Physical Exam Physical Exam: Elderly male resting comfortably in the bed not in any acute distress. HEENT: Pupils are reactive to light and accommodation. Mouth is moist no rash no lesions. Neck: The neck is supple. No JVD, no cervical or supraclavicular adenopathy. Chest: The patient is moving air bilaterally. Bilateral clear lungs anteriorly, no wheezing no crackles no rhonchi heard. Heart: S1-S2 heard, tachycardia, no murmur heard. No gallop heard. Abdomen: The abdomen is soft, no tender no mass felt, bowel sounds are positive. Right inguinal area is well dressed no active bleeding, no hematoma. Skin: No rash, no lesions seen. Neurologic: The patient is alert and awake and follows simple commands. He is also moving all his extremities. Lymphatic: There is no cervical, supraclavicular, inguinal lymphadenopathy. Results & Data Vital Signs (Past 12 Hours) Vital Signs Temp Pulse Resp BP Pulse Ox 09/09/18 06:01 84 15 97 09/09/18 06:00 92 H 16 125/90 98 09/09/18 05:01 79 20 97 09/09/18 05:00 72 23 143/83 H 98 09/09/18 04:01 36.7 C 92 H 14 138/64 97 09/09/18 03:00 72 17 133/78 95 09/09/18 02:00 79 15 127/75 98 09/09/18 01:00 80 17 108/65 97 09/09/18 00:00 36.5 C 79 15 112/78 96 09/08/18 23:27 74 09/08/18 23:01 78 19 128/73 97 Laboratory Results Abnormal lab results 09/08/18 09/08/18 09/09/18 Range/Units 11:30 19:02 08:31 RBC 3.53 L (4.7-6.1) M/uL Hgb 10.6 L (14.0-18.0) g/dL Hct 31.7 L (42-52) % Plt Count 89 L (130-400) K/uL Neut # (Auto) 6.83 H (1.4-6.5) K/uL Lymph # (Auto) 0.36 L (1.2-3.4) K/uL Wilbarger # (Auto) 0.85 H (0.11-0.59) K/uL BUN (7-18) mg/dl BUN/Creatinine Ratio (10-20) POC Glucose 164 H 171 H (70-99) 09/09/18 Range/Units 08:31 RBC (4.7-6.1) M/uL Hgb (14.0-18.0) g/dL Hct (42-52) % Plt Count (130-400) K/uL Neut # (Auto) (1.4-6.5) K/uL Lymph # (Auto) (1.2-3.4) K/uL Wilbarger # (Auto) (0.11-0.59) K/uL BUN 30 H (7-18) mg/dl BUN/Creatinine Ratio 35.1 H (10-20) POC Glucose (70-99) 09/09/18 08:31 09/09/18 08:31 Diagnostic Findings IMPRESSION: 1. Findings are consistent with a small bowel obstruction secondary to an incarcerated loop of small bowel within a right inguinal hernia. 2. There is a small volume of abdominopelvic ascites. No intraperitoneal free air is seen. No focally thick walled bowel loops are identified, and there is no pneumatosis intestinalis or portal venous gas. 3. Cholelithiasis, with gallstones noted in the cystic duct. There is no CT evidence of acute cholecystitis. 4. Advanced colonic diverticulosis without CT evidence of acute diverticulitis. 5. Cardiomegaly. 6. Prostatomegaly with evidence of chronic bladder outlet obstruction. 7. Additional findings as above. Electronically signed by: Yonis Knapp M.D. 09/07/2018 9:29 AM Medications Administered Current Inpatient Medications Acetaminophen (Tylenol) 650 mg PO Q6H PRN PRN Reason: Pain or Fever Stop: 10/08/18 18:35 Last Admin: 09/08/18 19:54 Dose: 650 mg Documented by: Apixaban (Eliquis) 5 mg PO BID HARISH Stop: 10/07/18 20:59 Last Admin: 09/07/18 20:38 Dose: 5 mg Documented by: Aspirin (Ecotrin Ectab) 81 mg PO DAILY [facility]ISH Stop: 10/08/18 08:59 Last Admin: 09/08/18 08:57 Dose: Not Given Documented by: Atorvastatin Calcium (Lipitor) 80 mg PO HS [facility] Stop: 10/08/18 20:59 Last Admin: 09/08/18 21:05 Dose: 80 mg Documented by: Carvedilol (Coreg) 25 mg PO BID [facility] Stop: 10/07/18 20:59 Last Admin: 09/09/18 07:56 Dose: 25 mg Documented by: Finasteride (Proscar) 5 mg PO DAILY [facility] Stop: 10/08/18 08:59 Last Admin: 09/09/18 07:56 Dose: 5 mg Documented by: Lactated Ringer's (Lr) 1,000 mls @ 100 mls/hr IV .Q10H [facility] Stop: 10/07/18 11:05 Last Admin: 09/09/18 00:10 Dose: 100 mls/hr Documented by: Memantine (Namenda) 5 mg PO BID [facility] Stop: 10/07/18 20:59 Last Admin: 09/09/18 07:56 Dose: 5 mg Documented by: Ondansetron HCl (Zofran) 4 mg IV Q4H PRN PRN Reason: Nausea And Vomiting Stop: 10/07/18 11:05 Last Admin: 09/08/18 08:04 Dose: 4 mg Documented by: Oxycodone/Acetaminophen (Percocet 5mg/325mg) 1 tab PO Q4H PRN PRN Reason: Pain Stop: 09/22/18 06:14 Terazosin HCl (Hytrin) 5 mg PO HS [facility] Stop: 10/07/18 20:59 Last Admin: 09/08/18 21:06 Dose: 5 mg Documented by:
--- NOTE | 2018-09-09 12:40 | Cardiology Progress Note ---
Date of Service September 09, 2018 Assessment & Plan (1) NSVT (nonsustained ventricular tachycardia): (2) Ischemic cardiomyopathy: (3) Chronic systolic (congestive) heart failure: (4) Chronic atrial fibrillation: (5) History of automatic internal cardiac defibrillator (AICD): (6) Hernia, inguinal, recurrent: Patient postoperative day 2 inguinal hernia repair. No recurrent ventricular tachycardia overnight. Mild hypokalemia supplemented earlier today. Recommend maintaining serum potassium level greater than 4.0. Continue beta-gilberto therapy. No indication for intravenous amiodarone currently. Restart Eliquis when bleeding risk is deemed acceptable body operating surgeon. Patient may be transferred from intensive care unit to telemetry at this time. Subjective Patient seen and examined at the bedside. More alert today. Hard of hearing. Denies chest pain or shortness of breath. No recurrent ventricular tachycardia on telemetry. Tolerating current medications. Eliquis on hold per direction of surgery due to postoperative hematoma. Review of Systems Review of Systems: All systems reviewed & are unremarkable except as noted in HPI & below Physical Exam Physical Exam: General: NAD, awake and alert, hard of hearing. HEENT: Normocephalic. Atraumatic. Conjunctiva pink, no scleral icterus. Neck: No carotid bruits, the carotid upstrokes are brisk. No JVD. No HJR Heart: Irregular rhythm, normal S1 and S2, no murmur appreciated. PMI is not displaced. No RV heave. Lungs: Clear bilateral without rales , rhonchi, or wheeze. Abdomen: Normal bowel sounds. Soft. Nontender. No masses or organomegaly. No abdominal bruits. Extremities: Right groin surgical dressing clean, dry, intact. No clubbing, cyanosis, or edema. Pulses: radial=2/4, Dorsalis pedis =2/4, posterior tibial=2/4. Neuro: Cranial nerves grossly intact. No focal motor deficit. Results & Data Vital Signs (Past 12 Hours) Vital Signs Temp Pulse Resp BP Pulse Ox 09/09/18 11:00 72 17 138/73 96 09/09/18 10:01 78 16 124/75 97 09/09/18 09:10 81 19 153/87 H 96 09/09/18 09:01 77 18 153/87 H 96 09/09/18 08:00 36.7 C 81 21 140/84 97 09/09/18 07:00 81 17 147/86 H 95 09/09/18 06:01 84 15 97 09/09/18 06:00 92 H 16 125/90 98 09/09/18 05:01 79 20 97 09/09/18 05:00 72 23 143/83 H 98 09/09/18 04:01 36.7 C 92 H 14 138/64 97 09/09/18 03:00 72 17 133/78 95 09/09/18 02:00 79 15 127/75 98 09/09/18 01:00 80 17 108/65 97
[2018-09-09] MEDS: NSS + 20MEQ KCL 20 MEQ/1,000 ML BAG IV SCH (16:46)
[2018-09-09] MEDS: ATORVASTATIN 40 MG TAB PO SCH (21:14)
[2018-09-09] MEDS: TERAZOSIN HCL 5 MG CAP PO SCH (21:14)
--- NOTE | 2018-09-10 06:13 | Surgery Progress Note ---
Date of Service September 10, 2018 Assessment & Plan (1) Hernia, inguinal, recurrent: 09/10/18 POD3# can restart Eliquis d/c pt when cleared by med and cardiology 09/09/18 POD#2 omar drain from incision removed increase activity as per cardiology diet as tolerated 09/08/18 POD #1 will increase diet as tolerated hold Eliquis for another 48-72 hours increase activity out of bed in chair Subjective no complaints watching tv Review of Systems Review of Systems: no nausea or abdominal pain Physical Exam Physical Exam: alert(best I have seen him) no distress watching sports on TV abd completely benign incision with resolving hematoma ecchymosis even down to scrotum(not unex pected)no cellulitis jesus intact Results & Data Vital Signs (Past 12 Hours) Vital Signs Temp Pulse Pulse Resp BP BP Pulse Ox 09/10/18 04:08 36.7 C 88 20 148/89 H 97 09/09/18 23:08 37.0 C 86 19 147/88 H 97 09/09/18 19:26 36.9 C 77 18 139/81 99
[2018-09-10] MEDS: FINASTERIDE 5 MG TAB PO SCH (07:59)
[2018-09-10] MEDS: CARVEDILOL 25 MG TAB PO SCH ×2 (07:59→21:02)
[2018-09-10] MEDS: MEMANTINE HCL 5 MG TAB PO SCH ×2 (07:59→21:06)
--- NOTE | 2018-09-10 10:13 | Discharge Summary ---
Date of Service September 10, 2018 Principal Diagnosis Incarcerated right inguinal hernia Discharge Exam Gastrointestinal (Abdomen) Inspection/Auscultation: + abdominal surgical incision (clean, ecchymosis into scrotum) Discharge Data Allergies Allergy/AdvReac Type Severity Reaction Status Date / Time diazepam AdvReac Unknown . Verified 09/07/18 04:48 Consultations 09/07/18 06:57 ED Decision to Admit Stat 09/07/18 11:06 Consult Podiatrist Routine 09/08/18 11:22 Consult Cardiology Routine Procedures Performed Operation Date: 09/07/18 11:15 Actual Procedures p Open Right Incarcerated Indirect Recurrent Inguinal Hernia Repair(Right) - Eric Dash MD Ordered Studies 09/07/18 04:37 CT abd pelvis IV con only Urgent Hospital Course (1) Hernia, inguinal, recurrent: 83 y/o male presented to ED with painful right groin lump and was taken to the OR urgently for incarcerated inguinal hernia despite being on Eliquis for A- fib. He had fat incarceration, no bowel involvement. He was transferred to ICU given age, cardiac history and anticoagulation. His Eliquis was held until post op day 3. He did have some bruising in the groin which was expected. Cardiology was consulted for a brief run of tachycardia perioperatively. This was an isola ysabel event, no further evaluation or treatment was necessary. He was stable for discharge on postop day 3. Total Time Total Time Spent Total Time Spent (In Minutes): 15 Discharge Plan Discharge Items Patient Disposition: Transfer Half-Way Fac Reason For Visit: INCARCERATED INGUINAL HERNIA Discharge Diagnosis: right inguinal hernia repair Condition: Fair Discharge Goals: Decrease discomfort Activity: Per 'Additional Instructions' section Lifting: No more than 10 pounds Bathing Comment: ok to shower Non-emergency contact: Surgeon Call non-emergency contact if: you have any medication questions, your pain is not controlled, you have a fever, your temperature is above 101.5 and your wound has increased redness Follow-up/Referrals: Eric Dash MD [Surgeon] - (Call to make an appt in 1 week) Luís Weller MD [Primary Care Provider] - Diet: Regular Addtl Provider Instructions: Prescriptions: New acetaminophen [Tylenol Extra Strength] 500 mg tablet 1,000 mg PO Q6H PRN (Reason: pain) Qty: 1 RF: 0 Continued amlodipine [Norvasc] 5 mg Tablet 5 mg PO QAM 30 Days Qty: 30 RF: 0 Aristocort 1 applic EXT BID RF: 0 terazosin 5 mg capsule 5 mg PO HS RF: 0 atorvastatin 80 mg tablet 80 mg PO HS RF: 0 carvedilol 25 mg tablet 25 mg PO BID RF: 0 lisinopril 20 mg tablet 20 mg PO DAILY RF: 0 aspirin [Aspirin Low Dose] 81 mg Tablet,Delayed Release (Dr/Ec) 81 mg PO DAILY RF: 0 finasteride 5 mg tablet 5 mg PO DAILY RF: 0 memantine 5 mg tablet 5 mg PO BID RF: 0 Eliquis 5 mg tablet 5 mg PO BID RF: 0 Stand-Alone Forms: [facility] Discharge Orders: Discharge Order (Routine); Ordered 09/10/18 Ordered By: Kar Zurita Jr Skilled Items Patient informed of condition?: Yes DNR: No Discharge Level of Care: Skilled Communicable Disease: No Discharge Prognosis: Improving Admission Data Admit Date/Time: 09/07/18 09:26 Attending Provider: Eric Dash Admit Provider: Eric Dash Primary Care Provider: Luís Weller Other Providers: Johnson Cruz ; Eric Dash ; Isaiah Almeida Service: Telemetry
--- NOTE | 2018-09-10 13:06 | Cardiology Progress Note ---
Date of Service September 10, 2018 Assessment & Plan (1) NSVT (nonsustained ventricular tachycardia): (2) Ischemic cardiomyopathy: (3) Chronic systolic (congestive) heart failure: (4) Chronic atrial fibrillation: (5) History of automatic internal cardiac defibrillator (AICD): (6) Hernia, inguinal, recurrent: Patient postoperative day 3 inguinal hernia repair. No recurrent ventricular tachycardia overnight. Continue beta-gilberto therapy. No indication for intravenous amiodarone currently. Restart Eliquis and aspirin when bleeding risk is deemed acceptable body operating surgeon. No further inpatient cardiovascular testing or intervention at this time. Cardiology will sign off. Thank you for allowing me to participate in the care of your patient. Subjective Patient seen and examined at the bedside. No recurrent ventricular tachycardia on telemetry. Denies chest pain or shortness of breath. Eliquis remains on hold per direction of surgical service. Offers no complaints at this time. Review of Systems Review of Systems: All systems reviewed & are unremarkable except as noted in HPI & below Physical Exam Physical Exam: General: NAD, awake and alert, hard of hearing. HEENT: Normocephalic. Atraumatic. Conjunctiva pink, no scleral icterus. Neck: No ortiz tid bruits, the carotid upstrokes are brisk. No JVD. No HJR Heart: Irregular rhythm, normal S1 and S2, no murmur appreciated. PMI is not displaced. No RV heave. Lungs: Clear bilateral without rales , rhonchi, or wheeze. Abdomen: Normal bowel sounds. Soft. Nontender. No masses or organomegaly. No abdominal bruits. Extremities: Right groin surgical dressing clean, dry, intact. No clubbing, cyanosis, or edema. Pulses: radial=2/4, Dorsalis pedis =2/4, posterior tibial=2/4. Neuro: Cranial nerves grossly intact. No focal motor deficit. Results & Data Vital Signs (Past 12 Hours) Vital Signs Temp Pulse Resp BP Pulse Ox 09/10/18 07:04 36.8 C 84 20 148/63 H 96 09/10/18 04:08 36.7 C 88 20 148/89 H 97
[2018-09-10] MEDS: NSS + 20MEQ KCL 20 MEQ/1,000 ML BAG IV SCH (13:29)
[2018-09-10] MEDS: TERAZOSIN HCL 5 MG CAP PO SCH (21:02)
[2018-09-10] MEDS: APIXABAN 5 MG TABLET PO SCH (21:02)
[2018-09-10] MEDS: ATORVASTATIN 40 MG TAB PO SCH (21:03)
--- NOTE | 2018-09-11 06:22 | Surgery Progress Note ---
Date of Service September 11, 2018 Assessment & Plan (1) Hernia, inguinal, recurrent: 09/11/18 POD#4 can be d/c from my point of view may wash over incision shower no bathing f/u office 1 week 83 y/o male presented to ED with painful right groin lump and was taken to the OR urgently for incarcerated inguinal hernia despite being on Eliquis for A-fib. He had fat incarceration, no bowel involvement. He was transferred to ICU given age, cardiac history and anticoagulation. His Eliquis was held until post op day 3. He did have some bruising in the groin which was expected. Cardiology was consulted for a brief run of tachycardia perioperatively. This was an isolated event, no further evaluation or treatment was necessary. He was stable for discharge on postop day 3. Supervising Physician Co-Signing Physician Notes I have seen and examined this patient with Yonis montero PA-C and agree with his assessment and plan of care. We are going to continue with current plan of care as prescribed. Dr. Eve Hollis. Subjective voices no complaints Physical Exam Physical Exam: incision healing well with resolving hematoma abd benign Results & Data Vital Signs (Past 12 Hours) Vital Signs Temp Pulse Resp BP BP Pulse Ox 09/11/18 02:56 36.7 C 77 20 154/87 H 97 09/10/18 23:17 36.9 C 88 19 155/93 H 97 09/10/18 18:52 36.7 C 69 18 131/69 98
[2018-09-11] MEDS: NSS + 20MEQ KCL 20 MEQ/1,000 ML BAG IV SCH (08:17)
[2018-09-11] MEDS: MEMANTINE HCL 5 MG TAB PO SCH (10:18)
[2018-09-11] MEDS: FINASTERIDE 5 MG TAB PO SCH (10:19)
[2018-09-11] MEDS: APIXABAN 5 MG TABLET PO SCH (10:19)
[2018-09-11] MEDS: CARVEDILOL 25 MG TAB PO SCH (10:19)
== END 2018-09-11 11:22 | DRG 351 ==
LOC: ED 04:29 → 1E 07:35 → 2S 09-09 11:30
DX: I47.2 Ventricular tachycardia; Z95.1 Presence of aortocoronary bypass graft; I11.0 Hypertensive heart disease with heart failure; I50.42 Chronic combined systolic (congestive) and diastolic (congestive) heart failure; F03.90 Unspecified dementia, unspecified severity, without behavioral disturbance, psychotic disturbance, mood disturbance, and anxiety; K40.31 Unilateral inguinal hernia, with obstruction, without gangrene, recurrent; I48.91 Unspecified atrial fibrillation; N40.0 Benign prostatic hyperplasia without lower urinary tract symptoms; Z82.49 Family history of ischemic heart disease and other diseases of the circulatory system; I25.10 Atherosclerotic heart disease of native coronary artery without angina pectoris; Z95.810 Presence of automatic (implantable) cardiac defibrillator; Z79.82 Long term (current) use of aspirin

== ENCOUNTER 2019-04-19 18:02 | Inpatient (IN) ==
[2019-04-19 18:25] LABS: Basophils # (auto) 0.02 K/uL (0-0.2); Basophils % (auto) 0.1 %; Eosinophils # (auto) 0.04 K/uL (0-0.5); Eosinophils % (auto) 0.3 %; Hematocrit (blood only) 38.9 % (42-52); Hemoglobin 12.9 g/dL (14.0-18.0); Immature Granulocytes # (auto) 0.04 K/uL (0.00-0.02); Immature Granulocytes % (auto) 0.3 %; Lymphocytes # (auto) 0.75 K/uL (1.2-3.4); Lymphocytes % (auto) 5.1 %; Mean Corpuscular Hemoglobin 30.7 pg (25-34); Mean Corpuscular Hgb Conc 33.2 g/dL (32-36); Mean Corpuscular Volume 92.6 fL (80-100); Mean Platelet Volume 9.7 fL (7.4-10.4); Monocytes # (auto) 1.47 K/uL (0.11-0.59); Neutrophils # (auto) 12.36 K/uL (1.4-6.5); Neutrophils % (auto) 84.2 %; Platelet Count 177 K/uL (130-400); RDW Coefficient of Variation 14.2 % (11.5-14.5); RDW Standard Deviation 48.2 fL (36.4-46.3); White Blood Count 14.68 K/uL (4.8-10.8)
[2019-04-19 18:43] LABS: Alanine Aminotransferase 24 U/L (12-78); Albumin Level 3.3 gm/dl (3.4-5.0); Aspartate Aminotransferase 22 U/L (15-37); BUN Creatinine Ratio 26.6 (10-20); Blood Urea Nitrogen 29 mg/dl (7-18); Calcium 9.4 mg/dl (8.5-10.1); Carbon Dioxide 24 mmol/L (21-32); Chloride 107 mmol/L (98-107); Est GFR (African American) 70.6; Est GFR (Non-African American) 60.9; Glucose 104 mg/dl (70-99); Magnesium 2.1 mg/dl (1.8-2.4); Potassium 4.3 mmol/L (3.5-5.1); Sodium 137 mmol/L (136-145)
[2019-04-19 18:49] LABS: Albumin Globulin Ratio 0.9 (0.9-2); Alkaline Phosphatase 71 U/L (45-117); Bilirubin,Total 0.7 mg/dl (0.2-1); Globulin 3.8 gm/dl (2.5-4.0); NT Pro B Type Natriuretic Pept 868 pg/ml (0-1800); Phosphorus 3.1 mg/dl (2.5-4.9); Total Protein 7.1 gm/dl (6.4-8.2); Troponin I < 0.015 ng/ml (0-0.045)
--- NOTE | 2019-04-19 18:56 | XRay Report ---
XR chest 1V portable HISTORY: SEPSIS COMPARISON: Chest 08/26/2018. FINDINGS: No pneumothorax. No pleural effusions. The heart remains enlarged. There are poststernotomy changes. Left-sided pacemaker/defibrillator. 9 mm nodular density overlying the right anterior fifth rib remains unchanged. This may be within the rib or represent a nipple shadow. Mild central pulmona ry vascular congestion without overt edema. No new focal lung consolidations to suggest pneumonia. IMPRESSION: No change in the cardiomegaly and mild central pulmonary vascular congestion. ACT 112: Negative or not required by law. Electronically signed by: Juan Jones M.D. 04/19/2019 6:55 PM
[2019-04-19 19:04] LABS: INR 1.1 (0.9-1.1); Partial Thromboplastin Ratio 1.1; Partial Thromboplastin Time 29.3 Seconds (21.0-31.0); Prothrombin Time 11.6 Seconds (9.0-12.0)
[2019-04-19 19:19] LABS: Base Excess VBG 1.1 mEq/L; pH VBG 7.44 (7.36-7.41)
[2019-04-19] MEDS ORDERED: DOXYCYCLINE HYCLATE 100 MG in DEXTROSE 5% 100 ML IV STA (19:48)
[2019-04-19] MEDS ORDERED: cefTRIAXone SODIUM 2,000 MG/70 ML BAG IV STA (19:48)
[2019-04-19 19:52] LABS: Appearance Urine Clear (Clear); Bacteria Urine Automated Negative (Negative); Bilirubin Urine Negative (Negative); Blood Urine 3+ (Negative); Color Urine Dark Yellow; Glucose Urine UA Negative (Negative); Ketones Urine Negative (Negative); Leukocyte Esterase Urine Negative (Negative); Nitrite Urine Negative (Negative); Protein Urine Negative (Negative); RBC Urine Automated >30 /hpf (0-4); Specific Gravity Urine 1.027 (1.000-1.030); Urobilinogen Urine Negative (Negative)
[2019-04-19 20:24] LABS: Influenza A virus by PCR Neg for Influ A (Neg); Influenza B virus by PCR Neg for Influ B (Neg)
--- NOTE | 2019-04-19 20:36 | History & Physical Report ---
Date of Service April 19, 2019 Assessment & Plan (1) Urinary tract infection: UA is suggestive of infection Urine was sent in for C/S Started on IV Ceftriaxone IV doxycycline was started for possible pneumonitis/bronchitis Present on Admission?: Yes (2) Acute confusion: Likely secondary to use of Risperdal And complicated by UTI Stop Risperdal (3) Dementia: May has acute delirium (4) Ischemic cardiomyopathy: S/P CABGx4 No acute symptoms (5) History of automatic internal cardiac defibrillator (AICD): No acute issue (6) Chronic atrial fibrillation: Rate is controlled Has been on Eliquis and will continue (7) Chronic systolic (congestive) heart failure: No acute fluid overload (8) Hypertension: Upper normal DVT Prophylaxis Eliquis Code Stutus Full Discussed with the in detail Please inform the for any change with the patient History of Present Illness Chief Complaint: Weakness shakes and feverish for the last few days Primary Care Provider: Luís Weller MD Please 83-year-old male with past medical history of CAD status post CABG x4, ischemic cardiomyopathy with AICD placement, paroxysmal atrial fibrillation, hypertension, BPH and dementia was sent in from home with complaints of weakness, tiredness, shakes, confusion and feverish that has been going on since Friday last. Symptoms started following taking of recent Risperdol as per the with more shakiness and not been eating and drinking enough. Noted to have more lethargic this morning and was seen by home health nurse who recommended the patient to come into the hospital to rule out UTI. He denies any significant symptoms but he has dementia and did not look any acute distress during my examination in the emergency room . He was afebrile in the emergency room with a white count of 14,000 and urea suggestive of infection. Chest x-ray did not show any pneumonia . He was started on intravenous ceftriaxone and doxycycline Admitted to medical telemetry unit Allergies Allergy/AdvReac Type Severity Reaction Status Date / Time diazepam AdvReac Unknown . Verified 09/21/18 15:35 Home Medications Home Medications Medication Instructions Recorded Confirmed Type Eliquis 5 mg PO BID 04/18/18 04/19/19 History aspirin [Aspirin Low Dose] 81 mg PO DAILY 04/18/18 04/19/19 History atorvastatin 80 mg PO HS 04/18/18 04/19/19 History finasteride 5 mg PO DAILY 04/18/18 04/19/19 History memantine 5 mg PO BID 04/18/18 04/19/19 History acetaminophen [Tylenol Extra 1,000 mg PO Q6H PRN #1 tab 09/10/18 04/19/19 Rx Strength] carvedilol 12.5 mg PO BID 04/19/19 04/19/19 History risperidone 1 mg PO HS 04/19/19 04/19/19 History Past Med/Surg History Medical History Atrial fibrillation (Chronic) BPH (benign prostatic hyperplasia) (Chronic) CAD (coronary artery disease) (Chronic) Chronic combined systolic and diastolic CHF (congestive heart failure) (Chronic) Dementia (Chronic) Hernia, inguinal, recurrent History of cardiac pacemaker (Chronic) Hypertension (Chronic) Left carotid artery stenosis (Chronic) 50-69% LICA stenosis PAF (paroxysmal atrial fibrillation) (Chronic) Surgical History H/O prostate biopsy (Chronic) History of automatic internal cardiac defibrillator (AICD) (Chronic) History of hernia repair (Chronic) S/P CABG x 4 (Chronic) S/P inguinal hernia repair (09/07/18) Open Right Incarcerated Indirect Recurrent Inguinal Hernia Repair 09/07/18 Dr. Dash Family History Mother , 96 No problems noted. Father No problems noted. Other Coronary heart disease Social History Preferred Language: Kiswahili Communication Ability: Impaired Raw Material Planner Required: No Beliefs That Will Affect Care: None marital status: Current Living Situation: Spouse Current Living Situation Comment: living at home current occupational status: retired Other Information That Helps Us Care for You: No Feels Safe at Home: Yes Safety Concerns: Feels Safe At This Time Smoking Status: Former smoker Smoking End Date: 1965 ; Second Hand Exposure: No ; Hx Alcohol Use: No Hx Substance Use: No Review of Systems Review of Systems: All systems reviewed & are unremarkable except as noted in HPI & below Results & Data Vital Signs (Past 12 Hours) Vital Signs Temp Pulse Pulse Resp BP BP Pulse Ox 04/19/19 19:39 102 H 16 157/85 H 98 04/19/19 18:15 97 04/19/19 17:54 37.0 C 85 12 132/73 96 Laboratory Results Short CBC 04/19/19 Range/Units 17:36 WBC 14.68 H (4.8-10.8) K/uL Hgb 12.9 L (14.0-18.0) g/dL Hct 38.9 L (42-52) % Plt Count 177 (130-400) K/uL BMP 04/19/19 17:36 Sodium 137 Potassium 4.3 Chloride 107 Carbon Dioxide 24 BUN 29 H Creatinine 1.10 Glucose 104 H Calcium 9.4 Cardiac Enzymes 04/19/19 Range/Units 17:36 Troponin I < 0.015 (0-0.045) ng/ml Liver Function 04/19/19 Range/Units 17:36 Total Bilirubin 0.7 (0.2-1) mg/dl AST 22 (15-37) U/L ALT 24 (12-78) U/L Alkaline Phosphatase 71 (45-117) U/L Albumin 3.3 L (3.4-5.0) gm/dl Urine 04/19/19 Range/Units 19:40 Urine Color Dark Yellow Urine Appearance Clear (Clear) Urine pH 5.0 (4.5-7.5) Ur Specific [place] 1.027 (1.000-1.030) Urine Protein Negative (Negative) Urine Glucose (UA) Negative (Negative)
--- NOTE | 2019-04-19 21:21 | Emergency Department Note ---
Entered by Kaye Woodward acting as a scribe for Saúl Iverson MD History of Present Illness General Chief complaint: Illness Stated complaint: LETHARIC, FEVER Time Seen by Provider: 04/19/19 18:04 Source: EMS History of Present Illness Provider complaint: Fever Onset (ago): day(s) 1 Location: head Radiation: non-radiation Pain Consistency: + intermittent Associated symptoms: + weakness The patient is an 83 y/o male who presents to the emergency department for evaluation of intermittent fever that began today. The EMS reports that the patients who cares for the patient has noted a fever today and lethargy for the past few days from the patient. The EMS state there is a history of Alzheimers. The HPI and ROS are limited secondary to patients condition. Home Medications Home Medications Medication Instructions Recorded Confirmed Type Eliquis 5 mg PO BID 04/18/18 04/19/19 History aspirin [Aspirin Low Dose] 81 mg PO DAILY 04/18/18 04/19/19 History atorvastatin 80 mg PO HS 04/18/18 04/19/19 History finasteride 5 mg PO DAILY 04/18/18 04/19/19 History memantine 5 mg PO BID 04/18/18 04/19/19 History acetaminophen [Tylenol Extra 1,000 mg PO Q6H PRN #1 tab 09/10/18 04/19/19 Rx Strength] carvedilol 12.5 mg PO BID 04/19/19 04/19/19 History risperidone 1 mg PO HS 04/19/19 04/19/19 History Allergies Allergy/AdvReac Type Severity Reaction Status Date / Time diazepam AdvReac Unknown . Verified 09/21/18 15:35 Past Med/Surg History Medical History Atrial fibrillation (Chronic) BPH (benign prostatic hyperplasia) (Chronic) CAD (coronary artery disease) (Chronic) Chronic combined systolic and diastolic CHF (congestive heart failure) (Chronic) Dementia (Chronic) Hernia, inguinal, recurrent History of cardiac pacemaker (Chronic) Hypertension (Chronic) Left carotid artery stenosis (Chronic) 50-69% LICA stenosis PAF (paroxysmal atrial fibrillation) (Chronic) Surgical History H/O prostate biopsy (Chronic) History of automatic internal cardiac defibrillator (AICD) (Chronic) History of hernia repair (Chronic) S/P CABG x 4 (Chronic) S/P inguinal hernia repair (09/07/18) Open Right Incarcerated Indirect Recurrent Inguinal Hernia Repair 09/07/18 Dr. Dash Family History Mother , 96 No problems noted. Father No problems noted. Other Coronary heart disease Social History Preferred Language: Cook Islander Communication Ability: Impaired Certified Hearing Instrument Dispenser Required: No Beliefs That Will Affect Care: None marital status: Current Living Situation: Spouse Current Living Situation Comment: living at home current occupational status: retired Other Information That Helps Us Care for You: No Feels Safe at Home: Yes Safety Concerns: Feels Safe At This Time Smoking Status: Former smoker Smoking End Date: 1965 ; Second Hand Exposure: No ; Hx Alcohol Use: No Hx Substance Use: No Review of Systems The HPI and ROS are limited secondary to patients condition. Physical Exam Vital Signs Vital Signs - 24 hr 04/19/19 17:54 04/19/19 18:15 04/19/19 19:39 Temperature 37.0 C Temperature Source Oral Oral Pulse Rate 85 Pulse Rate [Apical] 102 H Respiratory Rate 12 16 Respiratory Effort / Characteristics Non-Labored Non-Labored Respiratory Depth Normal Normal Blood Pressure 132/73 Blood Pressure [Right Arm] 157/85 H Blood Pressure Mean 92 Blood Pressure Mean [Right Arm] 109 Pulse Oximetry 96 97 98 Oxygen Delivery Method Room Air Room Air Room Air Sepsis Recent Fever Within 48 Hours Yes Sepsis Action Taken by Nursing No Action Required GENERAL: Pleasantly confused, awake, alert, well-appearing, in no distress HENT: Normocephalic, atraumatic. Oropharynx unremarkable. Mucous membranes dry. EYES: Normal conjunctiva. Sclera non-icteric. NECK: Supple. No nuchal rigidity. FROM. No JVD. RESPIRATORY: Diminished at bases otherwise clear. CARDIAC: Regular rate, normal rhythm. Extremities warm and well perfused. Pulses equal. ABDOMEN: Soft, non-distended. No tenderness to palpation. No rebound or guarding . No masses. RECTAL: Deferred. MUSCULOSKELETAL: Chest examination reveals no tenderness. The back is symmetrical on inspection without obvious abnormality. There is no CVA tenderness to palpation. No joint edema. LOWER EXTREMITIES: Calves are equal size bilaterally and non-tender. No edema. No discoloration. NEURO: Normal sensorium. No sensory or motor deficits noted. SKIN: No rash or jaundice noted. Course Course 1805: Past medical records reviewed. The patient was evaluated in room B03. A complete history and physical exam was performed. Administered Medications Apixaban (Eliquis) 5 mg PO BID HARISH Stop: 05/19/19 22:26 Last Admin: 04/19/19 23:06 Dose: 5 mg Documented by: [id number] Atorvastatin Calcium (Lipitor) 80 mg PO HS HARISH Stop: 05/19/19 22:26 Last Admin: 04/19/19 23:06 Dose: 80 mg Documented by: [id number] Carvedilol (Coreg) 25 mg PO BID HARISH Stop: 05/19/19 22:26 Last Admin: 04/19/19 23:06 Dose: 25 mg Documented by: [id number] Sodium Chloride (Nss 1000ml) 1,000 mls @ 80 mls/hr IV .[id number] HARISH Stop: 04/20/19 10:44 Last Admin: 04/19/19 22:58 Dose: 80 mls/hr Documented by: [id number] Memantine (Namenda) 5 mg PO BID HARISH Stop: 05/19/19 22:26 Last Admin: 04/19/19 23:06 Dose: 5 mg Documented by: [id number] Terazosin HCl (Hytrin) 5 mg PO HS HARISH Stop: 05/19/19 22:26 Last Admin: 04/19/19 23:06 Dose: 5 mg Documented by: [id number] Discontinued Medications Ceftriaxone Sodium (Rocephin) 2,000 mg in 70 mls @ 140 mls/hr IV NOW STA Stop: 04/19/19 20:17 Last Infusion: 04/19/19 22:06 Dose: 0 mls/hr Documented by: [id number] Admin: 04/19/19 21:25 Dose: 140 mls/hr Documented by: [id number] Doxycycline Hyclate 100 mg/ (Dextrose) 110 mls @ 50 mls/hr IV NOW STA Stop: 04/19/19 21:59 Last Infusion: 04/20/19 00:10 Dose: 0 mls/hr Documented by: [id number] Admin: 04/19/19 21:25 Dose: 50 mls/hr Documented by: [id number] Medical Decision Making Differential Diagnosis Differential includes viral illness, influenza, streptococcal pharyngitis, meningitis, pneumonia, sinusitis, UTI, pyelonephritis, otitis media. Medical Records Attestation: I reviewed the patient's medical records. Home Medications Current Medication List: was personally reviewed by me Laboratory Data Attestation: I reviewed the patient's lab results. Result diagrams: 04/19/19 17:36 04/19/19 17:36 Lab Results 04/19/19 04/19/19 04/19/19 Range/Units 17:36 17:36 17:36 WBC 14.68 H (4.8-10.8) K/uL RBC 4.20 L (4.7-6.1) M/uL Hgb 12.9 L (14.0-18.0) g/dL Hct 38.9 L (42-52) % MCV 92.6 (80-100) fL MCH 30.7 (25-34) pg MCHC 33.2 (32-36) g/dL RDW Std Deviation 48.2 H (36.4-46.3) fL RDW Coeff of [place] 14.2 (11.5-14.5) % Plt Count 177 (130-400) K/uL MPV 9.7 (7.4-10.4) fL Immature Gran % (Auto) 0.3 % Neut % (Auto) 84.2 % Lymph % (Auto) 5.1 % [place] % (Auto) 10.0 % Eos % (Auto) 0.3 % Baso % (Auto) 0.1 % Immature Gran # (Auto) 0.04 H (0.00-0.02) K/uL Neut # (Auto) 12.36 H (1.4-6.5) K/uL Lymph # (Auto) 0.75 L (1.2-3.4) K/uL [place] # (Auto) 1.47 H (0.11-0.59) K/uL Eos # (Auto) 0.04 (0-0.5) K/uL Baso # (Auto) 0.02 (0-0.2) K/uL PT Cancelled INR Cancelled APTT Cancelled PTT Ratio Cancelled VBG pH (7.36-7.41) VBG pCO2 (38-50) mmHg VBG pO2 mmHg VBG HCO3 mmol/L VBG O2 Saturation % VBG Base Excess mEq/L Barometric Pressure mm/Hg Sodium 137 (136-145) mmol/L Potassium 4.3 (3.5-5.1) mmol/L Chloride 107 (98-107) mmol/L Carbon Dioxide 24 (21-32) mmol/L Anion Gap 6.0 (3-11) BUN 29 H (7-18) mg/dl Creatinine 1.10 (0.6-1.4) mg/dl Est Cr Clr Drug Dosing Not Reportable Est GFR ( Amer) 70.6 Est GFR (Non-Af Amer) 60.9 BUN/Creatinine Ratio 26.6 H (10-20) Glucose 104 H (70-99) mg/dl Lactate (0.4-2.0) mmol/L Calcium 9.4 (8.5-10.1) mg/dl Phosphorus 3.1 (2.5-4.9) mg/dl Magnesium 2.1 (1.8-2.4) mg/dl Total Bilirubin 0.7 (0.2-1) mg/dl AST 22 (15-37) U/L ALT 24 (12-78) U/L Alkaline Phosphatase 71 (45-117) U/L Troponin I < 0.015 (0-0.045) ng/ml NT-Pro-B Natriuret Pep 868 (0-1800) pg/ml Total Protein 7.1 (6.4-8.2) gm/dl Albumin 3.3 L (3.4-5.0) gm/dl Globulin 3.8 (2.5-4.0) gm/dl Albumin/Globulin Ratio 0.9 (0.9-2) Urine Color Urine Appearance (Clear) Urine pH (4.5-7.5) Ur Specific [place] (1.000-1.030) Urine Protein (Negative) Urine Glucose (UA) (Negative) Urine Ketones (Negative) Urine Blood (Negative) Urine Nitrite (Negative) Urine Bilirubin (Negative) Urine Urobilinogen (Negative) Ur Leukocyte Esterase (Negative) Urine WBC (Auto) (0-5) /hpf Urine RBC (Auto) (0-4) /hpf U Hyaline Cast (Auto) (0-5) /lpf U Epithel Cells (Auto) (0-5) /lpf Urine Bacteria (Auto) (Negative) Influenza Type A (PCR) (Neg) Influenza Type B (PCR) (Neg) 04/19/19 04/19/19 04/19/19 Range/Units 18:41 18:41 18:43 WBC (4.8-10.8) K/uL RBC (4.7-6.1) M/uL Hgb (14.0-18.0) g/dL Hct (42-52) % MCV (80-100) fL MCH (25-34) pg MCHC (32-36) g/dL RDW Std Deviation (36.4-46.3) fL RDW Coeff of [place]yl[place] (11.5-14.5) % Plt Count (130-400) K/uL MPV (7.4-10.4) fL Immature Gran % (Auto) % Neut % (Auto) % Lymph % (Auto) % [place] % (Auto) % Eos % (Auto) % Baso % (Auto) % Immature Gran # (Auto) (0.00-0.02) K/uL Neut # (Auto) (1.4-6.5) K/uL Lymph # (Auto) (1.2-3.4) K/uL [place] # (Auto) (0.11-0.59) K/uL Eos # (Auto) (0-0.5) K/uL Baso # (Auto) (0-0.2) K/uL PT 11.6 INR 1.1 APTT 29.3 PTT Ratio 1.1 VBG pH 7.44 H (7.36-7.41) VBG pCO2 38 (38-50) mmHg VBG pO2 33 mmHg VBG HCO3 25 mmol/L VBG O2 Saturation 65.0 % VBG Base Excess 1.1 mEq/L Barometric Pressure 726.1 mm/Hg Sodium (136-145) mmol/L Potassium (3.5-5.1) mmol/L Chloride (98-107) mmol/L Carbon Dioxide (21-32) mmol/L Anion Gap (3-11) BUN (7-18) mg/dl Creatinine (0.6-1.4) mg/dl Est Cr Clr Drug Dosing Est GFR ( Amer) Est GFR (Non-Af Amer) BUN/Creatinine Ratio (10-20) Glucose (70-99) mg/dl Lactate 1.5 (0.4-2.0) mmol/L Calcium (8.5-10.1) mg/dl Phosphorus (2.5-4.9) mg/dl Magnesium (1.8-2.4) mg/dl Total Bilirubin (0.2-1) mg/dl AST (15-37) U/L ALT (12-78) U/L Alkaline Phosphatase (45-117) U/L Troponin I (0-0.045) ng/ml NT-Pro-B Natriuret Pep (0-1800) pg/ml Total Protein (6.4-8.2) gm/dl Albumin (3.4-5.0) gm/dl Globulin (2.5-4.0) gm/dl Albumin/Globulin Ratio (0.9-2) Urine Color Urine Appearance (Clear) Urine pH (4.5-7.5) Ur Specific [place] (1.000-1.030) Urine Protein (Negative) Urine Glucose (UA) (Negative) Urine Ketones (Negative) Urine Blood (Negative) Urine Nitrite (Negative) Urine Bilirubin (Negative) Urine Urobilinogen (Negative) Ur Leukocyte Esterase (Negative) Urine WBC (Auto) (0-5) /hpf Urine RBC (Auto) (0-4) /hpf U Hyaline Cast (Auto) (0-5) /lpf U Epithel Cells (Auto) (0-5) /lpf Urine Bacteria (Auto) (Negative) Influenza Type A (PCR) (Neg) Influenza Type B (PCR) (Neg) 04/19/19 04/19/19 Range/Units 19:40 19:40 WBC (4.8-10.8) K/uL RBC (4.7-6.1) M/uL Hgb (14.0-18.0) g/dL Hct (42-52) % MCV (80-100) fL MCH (25-34) pg MCHC (32-36) g/dL RDW Std Deviation (36.4-46.3) fL RDW Coeff of [place]ylar (11.5-14.5) % Plt Count (130-400) K/uL MPV (7.4-10.4) fL Immature Gran % (Auto) % Neut % (Auto) % Lymph % (Auto) % [place] % (Auto) % Eos % (Auto) % Baso % (Auto) % Immature Gran # (Auto) (0.00-0.02) K/uL Neut # (Auto) (1.4-6.5) K/uL Lymph # (Auto) (1.2-3.4) K/uL [place] # (Auto) (0.11-0.59) K/uL Eos # (Auto) (0-0.5) K/uL Baso # (Auto) (0-0.2) K/uL PT INR APTT PTT Ratio VBG pH (7.36-7.41) VBG pCO2 (38-50) mmHg VBG pO2 mmHg VBG HCO3 mmol/L VBG O2 Saturation % VBG Base Excess mEq/L Barometric Pressure mm/Hg Sodium (136-145) mmol/L Potassium (3.5-5.1) mmol/L Chloride (98-107) mmol/L Carbon Dioxide (21-32) mmol/L Anion Gap (3-11) BUN (7-18) mg/dl Creatinine (0.6-1.4) mg/dl Est Cr Clr Drug Dosing Est GFR ( Amer) Est GFR (Non-Af Amer) BUN/Creatinine Ratio (10-20) Glucose (70-99) mg/dl Lactate (0.4-2.0) mmol/L Calcium (8.5-10.1) mg/dl Phosphorus (2.5-4.9) mg/dl Magnesium (1.8-2.4) mg/dl Total Bilirubin (0.2-1) mg/dl AST (15-37) U/L ALT (12-78) U/L Alkaline Phosphatase (45-117) U/L Troponin I (0-0.045) ng/ml NT-Pro-B Natriuret Pep (0-1800) pg/ml Total Protein (6.4-8.2) gm/dl Albumin (3.4-5.0) gm/dl Globulin (2.5-4.0) gm/dl Albumin/Globulin Ratio (0.9-2) Urine Color Dark Yellow Urine Appearance Clear (Clear) Urine pH 5.0 (4.5-7.5) Ur Specific [place] 1.027 (1.000-1.030) Urine Protein Negative (Negative) Urine Glucose (UA) Negative (Negative) Urine Ketones Negative (Negative) Urine Blood 3+ H (Negative) Urine Nitrite Negative (Negative) Urine Bilirubin Negative (Negative) Urine Urobilinogen Negative (Negative) Ur Leukocyte Esterase Negative (Negative) Urine WBC (Auto) 1-5 (0-5) /hpf Urine RBC (Auto) >30 H (0-4) /hpf U Hyaline Cast (Auto) 1-5 (0-5) /lpf U Epithel Cells (Auto) 10-20 H (0-5) /lpf Urine Bacteria (Auto) Negative (Negative) Influenza Type A (PCR) Neg for Influ A (Neg) Influenza Type B (PCR) Neg for Influ B (Neg) Imaging Data Radiologist's Impression: Radiology results as stated below per my review and the radiologist's interpretation: XR chest 1V portable HISTORY: SEPSIS COMPARISON: Chest 08/26/2018. FINDINGS: No pneumothorax. No pleural effusions. The heart remains enlarged. There are poststernotomy changes. Left-sided pacemaker/defibrillator. 9 mm nodular density overlying the right anterior fifth rib remains unchanged. This may be within the rib or represent a nipple shadow. Mild central pulmonary vascular congestion without overt edema. No new focal lung consolidations to suggest pneumonia. IMPRESSION: No change in the cardiomegaly and mild central pulmonary vascular congestion. ACT 112: Negative or not required by law. Electronically signed by: Juan Jones M.D. 04/19/2019 6:55 PM ECG Data Attestation: I personally reviewed and interpreted this ECG as follows: Indication: + weakness Rate (beats per minute): 83 Rhythm: + atrial flutter ECG Intervals/blocks: + First degree AV block (occasionally ) ECG [place]: + Left axis deviation ECG ST segments: no ST depression and no ST elevation ECG Findings: + PVCs and + Other (QTC 441, QRS 102) Blood Pressure Blood Pressure Findings: Elevated blood pressure Blood Pressure Disposition: Referred to patients primary care provider NEIL Narrative The patient is a 83-year-old gentleman with a past medical history of dementia, A. fib on Eliquis, ischemic cardiomyopathy/CHF, CAD, hypertension who presents emergency department from home after reports increased "lethargy" over the past couple of days with development of fever today seen by [facility] / [facility] at home and referred to the emergency department for evaluation per HPI. Patiently, per EMS report it does seem that the patient has become increasingly difficult for the patient's elderly to manage at home and while there was report that [facility] / [facility] would be attempting to obtain increased home services it was suggested that patient potentially would benefit from nursing facility. On arrival the patient is pleasantly confused but no acute distress, afebrile with heart rate in the 80-100s and vital signs otherwise stable. EKG demonstrates atrial flutter without overt acute ischemia. Chest x-ray demonstrates mild central pulmonary vascular congestion without overt edema. No new focal lung consolidations to suggest pneumonia. WBC 14.6. H/H 12.9/38.9 within prior range of values. Platelets within normal limits. VBG unremarkable. Chemistry without acidosis. Lactate within normal limits at 1.5. Electrolytes and LFTs unremarkable. Troponin negative/undetectable. BNP within normal limits. UA without convincing evidence of infection. Influenza was negative. Given the patient's reported fevers with leukocytosis in the setting of chest x-ray which could potentially hide developing infiltrate, patient was treated empirically with ceftriaxone and doxycycline. Reasonable to proceed with admission for further management and possible placement. Case was discussed with Dr. Carpio, [facility] hospitalist, who will evaluate the patient for admission. Impression & Plan Acute confusion, Leukocytosis, Dementia, Fever Discharge Plan Visit Data *Final* Discharge Date/Time: 04/19/19 22:07 Chief Complaint: Illness Stated Complaint: LETHARIC, FEVER ED Provider: Saúl Iverson Discharge Problem: Acute confusion, Leukocytosis, Dementia, Fever Patient Disposition: Admitted As Inpatient Discharge Instructions Interventions: ED Discharge Assessment Last Done: 04/19/19 22:07 Discharge Problem: Leukocytosis Qualifiers: Leukocytosis type: unspecified Qualified Code(s): D72.829 - Elevated white blood cell count, unspecified Dementia Qualifiers: Dementia type: unspecified type Dementia behavioral disturbance: without behavioral disturbance Qualified Code(s): F03.90 - Unspecified dementia without behavioral disturbance Fever Qualifiers: Fever type: unspecified Qualified Code(s): R50.9 - Fever, unspecified The scribe's documentation has been prepared under my direction and personally reviewed by me in its entirety. I confirm that the note above accurately reflects all work, treatment, procedures, and medical decision making performed by me.
[2019-04-19] MEDS ORDERED: SODIUM CHLORIDE 0.9% 1000ML 1,000 ML IV SCH (22:15)
[2019-04-19] MEDS ORDERED: APIXABAN 5 MG TABLET PO SCH (22:27)
[2019-04-19] MEDS ORDERED: ACETAMINOPHEN 500 MG TAB PO PRN (22:27)
[2019-04-19] MEDS: MEMANTINE HCL 5 MG TAB PO SCH (23:06)
[2019-04-19] MEDS: ATORVASTATIN 40 MG TAB PO SCH (23:06)
[2019-04-19] MEDS: TERAZOSIN HCL 5 MG CAP PO SCH (23:06)
[2019-04-19] MEDS: carvediloL 25 MG TAB PO SCH (23:06)
--- NOTE | 2019-04-20 06:33 | Communication Note ---
Date of Service: April 20, 2019 Made aware by RN of urinary incontinence post. Urine grossly bloody. Patient baseline confused as per RN No overt pain complaints. AP Hematuria Follow H&H CT abdomen pelvis Hold aspirin, Eliquis for now Will relay to AM provider.
[2019-04-20 07:40] LABS: Basophils # (auto) 0.02 K/uL (0-0.2); Basophils % (auto) 0.2 %; Eosinophils # (auto) 0.08 K/uL (0-0.5); Hematocrit (blood only) 34.9 % (42-52); Hemoglobin 11.5 g/dL (14.0-18.0); Immature Granulocytes # (auto) 0.02 K/uL (0.00-0.02); Immature Granulocytes % (auto) 0.2 %; Lymphocytes # (auto) 0.59 K/uL (1.2-3.4); Lymphocytes % (auto) 7.3 %; Mean Corpuscular Hemoglobin 30.7 pg (25-34); Mean Corpuscular Volume 93.1 fL (80-100); Mean Platelet Volume 9.5 fL (7.4-10.4); Monocytes # (auto) 1.01 K/uL (0.11-0.59); Monocytes % (auto) 12.5 %; Neutrophils # (auto) 6.38 K/uL (1.4-6.5); Neutrophils % (auto) 78.8 %; Platelet Count 124 K/uL (130-400); RDW Coefficient of Variation 14.2 % (11.5-14.5); RDW Standard Deviation 48.2 fL (36.4-46.3); Red Blood Count 3.75 M/uL (4.7-6.1)
[2019-04-20 08:12] LABS: BUN Creatinine Ratio 33.1 (10-20); Calcium 9.1 mg/dl (8.5-10.1); Est GFR (African American) 94.4; Est GFR (Non-African American) 81.5; Magnesium 1.9 mg/dl (1.8-2.4); Phosphorus 2.9 mg/dl (2.5-4.9); Potassium 3.7 mmol/L (3.5-5.1)
--- NOTE | 2019-04-20 08:42 | CT Scan Report ---
CT abd pelvis wo con CLINICAL HISTORY: 83 years-old Male presenting with hematuria. TECHNIQUE: Multidetector CT of the abdomen and pelvis was performed without the use of intravenous co ntrast. IV contrast: None. One or more dose lowering techniques were used consistent with the princip les of ALA (as low as reasonably achievable), including automatic exposure control, mA or kV adjust ment to individual patient size, and/or use of iterative reconstruction. COMPARISON: 09/07/2018. CT DOSE (mGy.cm): The estimated cumulative dose is 522.90 mGy.cm. FINDINGS: Corporate Receptionist topogram: Implanted cardiac defibrillator with leads to the right atrium and right ventricular apex. Median sternotomy wires and mediastinal surgical clip noted. Lung bases: Multichamber enlargement of the heart. Coronary artery and aortic valve calcification. No pericardial or pleural effusion. Minimal dependent changes likely atelectasis. Liver: Normal morphology. Normal density. Biliary: No gross biliary ductal dilatation allowing for noncontrast technique. Calculus along the co urse of the common duct may represent choledocholithiasis though this is not well delineated. Gallbla dder contains gallstones. The gallbladder is not significantly distended. Pancreas: Mild parenchymal atrophy. Spleen: Normal noncontrast appearance. Adrenal glands: Normal noncontrast appearance. Kidneys and ureters: Few suspected cysts noted. No nephrolithiasis. No hydronephrosis. Normal ureters . Bladder: Distended with high density intraluminal contents near the prostatic base (series 3 image 35 8). The bladder is mildly thick-walled. Pelvic organs: Marked enlargement of the prostate. Bowel: Moderate stool burden in the rectum. Diverticulosis of the sigmoid colon with a focal divertic ulum in the mid sigmoid colon with surrounding fat infiltration and mild adjacent sigmoid colon wall thickening. No convincing evidence of extraluminal gas. No abscess. This is in the vicinity of the bl adder dome. Mild wall thickening and stenosis of the distal transverse colon likely due to peristalsi s. There is also diverticulosis to a lesser degree throughout the remainder of the colon. The appendi x is not well visualized. No bowel obstruction. Trace sliding type hiatal hernia. Peritoneal cavity: No free fluid or intraperitoneal gas. Lymph nodes: No gross lymphadenopathy allowing for noncontrast technique. Vasculature: Extensive calcified atherosclerotic plaque with multifocal ectasia of the infrarenal abd ominal aorta measuring up to 2.8 cm. There may also be either a short segment dissection or penetrati ng ulcer, which is chronic appearing (series 3 image 240). Suspected significant stenosis at the righ t common femoral bifurcation (series 3 image 434). Abdominal wall: Postsurgical changes of prior right inguinal hernia repair suspected. Small fat-conta ining left inguinal hernia. Musculoskeletal: Degenerative changes of the spine. Partially visualized healed sternotomy. IMPRESSION: 1. Acute uncomplicated diverticulitis of the mid sigmoid colon. 2. Significant prostatomegaly with suspected chronic bladder outlet obstruction. High density materi al within the urinary bladder likely indicates hemorrhage as per the given history. Consideration for nonurgent urologic consultation for cystoscopy recommended to ensure the absence of an underlying ne oplasm. 3. Cholelithiasis and possible choledocholithiasis. 4. Infrarenal abdominal aortic ectasia measuring up to 2.8 cm. Extensive atherosclerosis with suspec ysabel significant stenosis at the right common femoral artery bifurcation. ACT 112: Negative or not required by law. Electronically signed by: Jose Nelson M.D. 04/20/2019 8:41 AM
[2019-04-20] MEDS ORDERED: carvediloL 12.5 MG TAB PO SCH (09:00)
[2019-04-20] MEDS ORDERED: DOXYCYCLINE HYCLATE 100 MG in DEXTROSE 5% 100 ML IV SCH (09:00)
[2019-04-20] MEDS ORDERED: ASPIRIN 81 MG ECTAB PO SCH (09:00)
[2019-04-20] MEDS: lisinopriL 20 MG TAB PO SCH (09:13)
[2019-04-20] MEDS: FINASTERIDE 5 MG TAB PO SCH (09:13)
[2019-04-20] MEDS: carvediloL 25 MG TAB PO SCH ×2 (09:13→21:08)
[2019-04-20] MEDS: MEMANTINE HCL 5 MG TAB PO SCH ×2 (09:13→21:09)
--- NOTE | 2019-04-20 10:39 | Electrocardiogram Report ---
Test Reason : Blood Pressure : / mmHG Vent. Rate : 083 BPM Atrial Rate : 288 BPM P-R Int : 000 ms QRS Dur : 102 ms QT Int : 376 ms P-R-T Axes : 000 -39 -25 degrees QTc Int : 441 ms Poor data quality, interpretation may be adversely affected Possible Atrial fibrillation with occasional ventricular-paced complexes and with premature ventricul ar or aberrantly conducted complexes Left axis deviation Abnormal ECG When compared with ECG of 09-SEP-2018 10:44, Vent. rate has increased BY 20 BPM Confirmed by Juan Pablo Phillips ([id number]) on 04/20/2019 10:39:14 AM Referred By: REFERRED SELF Confirmed By:Juan Pablo Phillips
--- NOTE | 2019-04-20 13:15 | Urology Consultation ---
Date of Consultation April 20, 2019 Assessment & Plan (1) Hematuria: 83 yo M with multiple comorbidities admitted for acute confusion, leukocytosis, and fever and developed gross hematuria. - Reviewed case and CT abd/pelvis with Dr. Karimi - CT findings of prostatomegaly and small amount of blood in dependent portion of bladder are noted - Recommend treat diverticulitis as indicated, discussed with Dr. Cortes - Avoid Rothman catheter if possible - Check bladder scan/PVR today, order placed and RN notified - Monitor H/H - Plan to complete hematuria work-up as outpatient with cystoscopy unless acute changes - Will continue to follow History of Present Illness Reason for Consultation: Hematuria Attending Physician: Al Cortes MD History of Present Illness 83 yo M with PMHx of CAD s/p CABG x4, ischemic cardiomyopathy with AICD placement, atrial fibrillation on anticoagulation, hypertension, CHF, BPH and dementia admitted for acute confusion, leukocytosis, and fever. Pt admitted via [facility] ED on 04/19/19. Presented with lethargy for several days prior to arrival and onset of subjective fevers that prompted ED evaluation. Lab work in ED: WBC 14.68, Hgb 12.9, Creatinine 1.10, Lactate 1.5. Flu negative. Treated with IV Ceftriaxone and doxycycline in ED. Admitted for further evaluation and treatment. Pt developed gross hematuria since admission and we are consulted to evaluate. Chart review: Afebrile Cr- 0.80 WBC - 8.10 Hgb - 11.5 UA - 3+ blood, >30 RBC, 10-20 Epi's, negative nitrites and bacteria BCx - pending On IV Ceftriaxone and Doxycycline Imaging: CT abd/pelvis IMPRESSION: 1. Acute uncomplicated diverticulitis of the mid sigmoid colon. 2. Significant prostatomegaly with suspected chronic bladder outlet obstruction. High density material within the urinary bladder likely indicates hemorrhage as per the given history. 3. Cholelithiasis and possible choledocholithiasis. 4. Infrarenal abdominal aortic ectasia measuring up to 2.8 cm. Extensive atherosclerosis with suspected significant stenosis at the right common femoral artery bifurcation. Per nursing notes, patient was incontinent of bloody urine after admission. Patient had straight catheterization in ED. Patient in bed sleeping, arouses to speech. Denies any discomfort at this time. ROS unobtainable due to cognitive status. Per chart review, home medications include Finasteride and Terazosin. Eliquis and aspirin are currently on hold since onset of hematuria. Allergies Allergy/AdvReac Type Severity Reaction Status Date / Time diazepam AdvReac Unknown . Verified 09/21/18 15:35 Home Medications Home Medications Medication Instructions Recorded Confirmed Type Eliquis 5 mg PO BID 04/18/18 04/19/19 History aspirin [Aspirin Low Dose] 81 mg PO DAILY 04/18/18 04/19/19 History atorvastatin 80 mg PO HS 04/18/18 04/19/19 History finasteride 5 mg PO DAILY 04/18/18 04/19/19 History memantine 5 mg PO BID 04/18/18 04/19/19 History acetaminophen [Tylenol Extra 1,000 mg PO Q6H PRN #1 tab 09/10/18 04/19/19 Rx Strength] carvedilol 12.5 mg PO BID 04/19/19 04/19/19 History risperidone 1 mg PO HS 04/19/19 04/19/19 History Patient History Medical History Atrial fibrillation (Chronic) BPH (benign prostatic hyperplasia) (Chronic) CAD (coronary artery disease) (Chronic) Chronic combined systolic and diastolic CHF (congestive heart failure) (Chronic) Dementia (Chronic) Hernia, inguinal, recurrent History of cardiac pacemaker (Chronic) Hypertension (Chronic) Left carotid artery stenosis (Chronic) 50-69% LICA stenosis PAF (paroxysmal atrial fibrillation) (Chronic) Surgical History H/O prostate biopsy (Chronic) History of automatic internal cardiac defibrillator (AICD) (Chronic) History of hernia repair (Chronic) S/P CABG x 4 (Chronic) S/P inguinal hernia repair (09/07/18) Open Right Incarcerated Indirect Recurrent Inguinal Hernia Repair 09/07/18 Dr. Dash Family History Mother , 96 No problems noted. Father No problems noted. 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 Beliefs That Will Affect Care: None marital status: Current Living Situation: Spouse Current Living Situation Comment: living at home current occupational status: retired Other Information That Helps Us Care for You: No Feels Safe at Home: Yes Safety Concerns: Feels Safe At This Time Smoking Status: Former smoker Smoking End Date: 1965 ; Second Hand Exposure: No ; Hx Alcohol Use: No Hx Substance Use: No Review of Systems Review of Systems: Unobtainable due to cognitive status Physical Exam Constitutional: comfortable; no acute distress Respiratory: normal respiratory effort; no respiratory distress and no labored breathing Cardiovascular: Extremities: no pedal edema Gastrointestinal (Abdomen): Inspection/Auscultation: abdomen normal to inspection; abdomen not distended Percussion/Palpation: + abdomen tender (generalized tenderness to palpation, no rebound or guarding) and abdomen soft; no guarding Neurologic: moves all extremities and awake Psychiatric: Orientation: alert and cooperative Genitourinary: no CVA tenderness Urine not visualized during exam Results & Data Vital Signs (Past 12 Hours) Vital Signs Temp Pulse Pulse Resp BP Pulse Ox 04/20/19 11:21 36.5 C 54 L 18 94/56 L 97 04/20/19 11:00 68 04/20/19 07:24 36.8 C 67 18 137/88 96 04/20/19 03:28 36.3 C L 71 18 103/69 98 PG Care Time/CCT Total # of Minutes Spent Total Time Spent with Patient: Total time spent is greater than 50% in coordination of care (as documented) at patient's floor/unit and/or counseling patient: Coding Level of Care Code 66395 Inpt Consult Level 3 Diagnoses Hematuria R31.9
--- NOTE | 2019-04-20 18:56 | Hospitalist Progress Note ---
Date of Service April 20, 2019 Assessment & Plan (1) Toxic metabolic encephalopathy: (2) Weakness generalized: Present on admission with confusion and weakness Possible related to acute illness vs risperdal UA negative for leukocytes/Nitrite and bacteria WBC elevated Blood cx pending Risperdal discontinued since it was recently started Continue IV Rocephin for now Will d/c doxycycline PT/OT eval Fall precaution (3) Diverticulitis: CT abd showed acute uncomplicated diverticulitis of the mid sigmoid colon. On In Rocephin, will add flagyl Iv Will change diet to full liquid Consider surgical consult if worsening Will need outpatient colonoscopy Continue Monitor (4) Hematuria: CT abd/pelvis showed significant prostatomegaly with suspected chronic bladder outlet obstruction. High density material within the urinary bladder likely indicates hemorrhage as per the given history. Hgb 11.5 today Urology on board recommended to avoid Rothman catheter if possible Check bladder scan/PVR today Will need Outpatient cystoscopy with urology Monitor H/H (5) Dementia: Risperidone discontinued Continue Nemandine (6) Ischemic cardiomyopathy: S/P CABGx4 No acute symptoms (7) History of automatic internal cardiac defibrillator (AICD): stable (8) Chronic atrial fibrillation: Rate is controlled with carvedilol Eliquis and aspirin on hold due to hematuria (9) Chronic systolic (congestive) heart failure: No acute fluid overload Denies any SOB (10) Hypertension: BP stable Continue carvedilol DVT Prophylaxis will hold Eliquis due to Hematuria Will put SCD Code Status Full Code Admission and Anticipated Discharge Date Admission Date: April 19, 2019 Subjective Pt was seen and examined Lying in bed with no distress Pt had some hematuria this morning He denies any abdominal pain for me But later he said that he was having some abdominal tenderness Denies any chest pain, palpitation, dizziness and SOB Physical Exam Physical Exam: General- No acute distress Head- atraumatic Eyes- PERRL, EOMI, ENT- oropharynx clear Neck- supple, no JVD Lungs- no wheezing Heart- regular rhythm; no murmur Abdomen- normal bowel sounds, soft, nontender (during my exam) Extremities- no calf tenderness Neuro- alert, awake, PERRL, EOMI; no facial palsy; no dysarthria Skin- warm & dry Results & Data ([facility]) Vital Signs (Past 12 Hours) Vital Signs Temp Pulse Pulse Pulse Resp BP Pulse Ox 04/20/19 16:00 36.6 C 74 67 20 124/66 98 04/20/19 11:21 36.5 C 54 L 18 94/56 L 97 04/20/19 11:00 68 04/20/19 07:24 36.8 C 67 18 137/88 96
[2019-04-20] MEDS: metroNIDAZOLE 500 MG/100 ML BAG IV SCH (21:07)
[2019-04-20] MEDS: cefTRIAXone SODIUM 1,000 MG in DEXTROSE 5% 50 ML IV SCH (21:08)
[2019-04-20] MEDS: ATORVASTATIN 40 MG TAB PO SCH (21:08)
[2019-04-20] MEDS: TERAZOSIN HCL 5 MG CAP PO SCH (21:09)
[2019-04-21] MEDS: metroNIDAZOLE 500 MG/100 ML BAG IV SCH ×3 (04:01→21:02)
[2019-04-21 08:04] LABS: Hematocrit (blood only) 34.5 % (42-52); Hemoglobin 11.2 g/dL (14.0-18.0); Mean Corpuscular Hemoglobin 30.1 pg (25-34); Mean Corpuscular Hgb Conc 32.5 g/dL (32-36); Mean Corpuscular Volume 92.7 fL (80-100); Mean Platelet Volume 9.5 fL (7.4-10.4); Platelet Count 124 K/uL (130-400); RDW Coefficient of Variation 13.9 % (11.5-14.5); RDW Standard Deviation 47.6 fL (36.4-46.3); Red Blood Count 3.72 M/uL (4.7-6.1)
[2019-04-21 08:36] LABS: Calcium 8.9 mg/dl (8.5-10.1); Est GFR (African American) 92.1; Est GFR (Non-African American) 79.5; Potassium 3.8 mmol/L (3.5-5.1)
[2019-04-21] MEDS: carvediloL 25 MG TAB PO SCH ×2 (08:49→21:03)
[2019-04-21] MEDS: lisinopriL 20 MG TAB PO SCH (08:49)
[2019-04-21] MEDS: FINASTERIDE 5 MG TAB PO SCH (08:49)
[2019-04-21] MEDS: MEMANTINE HCL 5 MG TAB PO SCH ×2 (09:29→21:04)
--- NOTE | 2019-04-21 10:42 | Urology Progress Note ---
Date of Service April 21, 2019 Assessment & Plan (1) Hematuria: 83 yo M with multiple comorbidities admitted for acute confusion, leukocytosis, and fever and developed gross hematuria during admission. - Pt is voiding, incontinent - PVR yesterday 125 mL, acceptable - Recommend bladder scan Qshift and prn x 24 hours, straight cath for > 500 mL, order placed - Avoid Rothman catheter if possible - Monitor H/H - Plan to complete hematuria work-up as outpatient with cystoscopy unless acute changes - Will continue to monitor Subjective Pt sleeping, easily aroused for exam. Appears comfortable, no distress. Denies abdominal, suprapubic, or flank pain. Pt incontinent of urine. Random bladder scan yesterday 280 mL. Per nursing notes, incontinent of bloody urine with some clots. PVR 125 mL. Lab work reviewed. Creatinine 0.85, WBC 7.40, Hgb 11.2. BCx no growth x 24 hours. On IV ceftriaxone and Flagyl for acute diverticulitis. ROS limited due to cognitive status. Review of Systems Review of Systems: Unobtainable due to cognitive status Physical Exam Constitutional: comfortable; no acute distress Respiratory: normal respiratory effort; no respiratory distress and no labored breathing Gastrointestinal (Abdomen): Inspection/Auscultation: abdomen normal to inspection; abdomen not distended Percussion/Palpation: abdomen soft; abdomen nontender and no guarding Neurologic: moves all extremities and awake Psychiatric: Orientation: cooperative Genitourinary: no CVA tenderness Pt incontinent, urine not visualized during exam Results & Data Vital Signs (Past 12 Hours) Vital Signs Temp Pulse Pulse Resp BP Pulse Ox 04/21/19 07:23 36.4 C L 70 20 132/54 L 98 04/21/19 04:00 36.6 C 69 20 119/82 98 04/20/19 23:48 71 PG Care Time/CCT Total # of Minutes Spent Total Time Spent with Patient: Total time spent is greater than 50% in coordination of care (as documented) at patient's floor/unit and/or counseling patient: Coding Level of Care Code 96083 Subseq Hosp Care Lvl 2 Diagnoses Hematuria R31.9
--- NOTE | 2019-04-21 20:27 | Hospitalist Progress Note ---
Date of Service April 21, 2019 Assessment & Plan (1) Diverticulitis: CT demonstrated sigmoid diverticulitis. Afebrile. Leukocytosis improved. Continue IV antibiotics. (2) Toxic metabolic encephalopathy: Altered mental status at time of admission. Underlying dementia. Probable metabolic encephalopathy secondary to infection. (3) Hematuria: Gross hematuria without apparent urinary tract infection. Urology consulted. Outpatient cystoscopy recommended. (4) Chronic systolic (congestive) heart failure: Chronic left ventricular systolic heart failure. Compensated. Not on JAME or ARB-need to clarify history. Continue carvedilol. Diurese as needed. (5) Chronic atrial fibrillation: Rate controlled on carvedilol. No anticoagulation due to gross hematuria. (6) Hypertension: Continue carvedilol, lisinopril, terazosin. (7) Dementia: Continue memantine. Monitor for delirium. (8) DVT prophylaxis: No anticoagulants due to hematuria. SCDs. Ambulate. (9) Discharge planning issues: Anticipate need for skilled care or inpatient rehab. Case Management consulted. Family Medicine follow-up with Dr. Weller. Admission and Anticipated Discharge Date Admission Date: April 19, 2019 Subjective Recheck for multiple problems. Patient seen in their room around 1510. Patient denies any problems. Nursing reports large void with incontinence and gross hematuria. Review of Systems: (unreliable due to pt's dementia) Constitutional- no fever. Cardiac- no chest pain. Pulmonary- no cough or SOB. GI- no nausea, vomiting, diarrhea, melena, hematochezia. - as noted above. Otherwise, as noted above. Physical Exam Constitutional: no acute distress Respiratory: no respiratory distress Auscultation: lungs clear to auscultation bilaterally Cardiovascular: Rate/Rhythm: + irregularly irregular Heart Sounds: no gallop Vessels: no JVD Extremities: + edema (trace pretibial); no calf tenderness Gastrointestinal (Abdomen): Inspection/Auscultation: normal bowel sounds Percussion/Palpation: + abdomen tender (lower abdominal) and abdomen soft Musculoskeletal: Extremities: no cyanosis Skin: no rashes, warm and dry Psychiatric: Orientation: alert; + not oriented x 3 (only to person) Results & Data ([facility]) Vital Signs (Past 12 Hours) Vital Signs Temp Pulse Resp BP Pulse Ox 04/21/19 19:49 70 127/79 04/21/19 15:50 36.6 C 72 18 146/90 H 99 04/21/19 10:55 36.4 C L 72 20 124/77 99 Laboratory Results 04/21/19 07:47 04/21/19 07:47 Microbiology 04/19/19 18:46 Blood Aerobic Blood Culture - Preliminary No growth in Aerobic bottle after 48 hours. 04/19/19 18:46 Blood Anaerobic Blood Culture - Preliminary No growth in Anaerobic bottle after 48 hours. 04/19/19 18:40 Blood Aerobic Blood Culture - Preliminary No growth in Aerobic bottle after 48 hours. 04/19/19 18:40 Blood Anaerobic Blood Culture - Preliminary No growth in Anaerobic bottle after 48 hours. (1) Dementia Dementia behavioral disturbance: without behavioral disturbance Dementia type: unspecified type Qualified Code(s): F03.90 - Unspecified dementia without behavioral disturbance
[2019-04-21] MEDS: ATORVASTATIN 40 MG TAB PO SCH (21:03)
[2019-04-21] MEDS: cefTRIAXone SODIUM 1,000 MG in DEXTROSE 5% 50 ML IV SCH (21:03)
[2019-04-21] MEDS: TERAZOSIN HCL 5 MG CAP PO SCH (21:04)
[2019-04-22] MEDS: metroNIDAZOLE 500 MG/100 ML BAG IV SCH ×3 (04:03→20:00)
[2019-04-22 08:09] LABS: Hematocrit (blood only) 34.8 % (42-52); Hemoglobin 11.6 g/dL (14.0-18.0); Mean Corpuscular Hemoglobin 30.4 pg (25-34); Mean Corpuscular Hgb Conc 33.3 g/dL (32-36); Mean Corpuscular Volume 91.1 fL (80-100); Mean Platelet Volume 9.5 fL (7.4-10.4); Platelet Count 137 K/uL (130-400); RDW Coefficient of Variation 13.7 % (11.5-14.5); RDW Standard Deviation 45.5 fL (36.4-46.3); Red Blood Count 3.82 M/uL (4.7-6.1); White Blood Count 6.06 K/uL (4.8-10.8)
[2019-04-22] MEDS: lisinopriL 20 MG TAB PO SCH (08:09)
[2019-04-22] MEDS: MEMANTINE HCL 5 MG TAB PO SCH ×2 (08:10→20:09)
[2019-04-22] MEDS: carvediloL 25 MG TAB PO SCH ×2 (08:10→20:07)
[2019-04-22] MEDS: FINASTERIDE 5 MG TAB PO SCH (08:10)
[2019-04-22 08:31] LABS: BUN Creatinine Ratio 20.2 (10-20); Calcium 9.2 mg/dl (8.5-10.1); Creatinine Clr Calc Pharmacy 66.2 ml/min; Est GFR (African American) 93.9; Potassium 3.9 mmol/L (3.5-5.1)
--- NOTE | 2019-04-22 09:01 | Urology Progress Note ---
Date of Service April 22, 2019 Assessment & Plan (1) Hematuria: 83 yo M with multiple comorbidities admitted for acute confusion, leukocytosis, and fever and developed gross hematuria during admission. - Pt is voiding, incontinent - Per nursing, urine was clear this morning - Bladder scans acceptable yesterday, did not require straight cath - Avoid Rothman catheter if possible - Monitor H/H - Plan to complete hematuria work-up as outpatient with cystoscopy unless acute changes - Will arrange outpatient follow-up with our service Thank you for allowing us to participate in the acute care of Mr. Mcmillan. Please reconsult us with additional questions, concerns or changes in patient status. Subjective Awake, in bed, nursing changing bedding. Appears comfortable, no distress. Voiding spontaneously, incontinent. Per nursing, incontinent of clear urine this morning. ROS limited due to cognitive status, but denies f/c/n/v. Denies abdominal or suprapubic pain. Labs reviewed: Creatinine 0.81, Hgb 11.6, WBC 6.06. Bladder scans - 277, 33. Review of Systems Review of Systems: Unobtainable due to cognitive status Physical Exam Constitutional: comfortable; no acute distress Respiratory: normal respiratory effort and able to speak in complete sentences; no respiratory distress and no labored breathing Cardiovascular: Extremities: no pedal edema Gastrointestinal (Abdomen): Inspection/Auscultation: abdomen normal to inspection; abdomen not distended Percussion/Palpation: abdomen soft; abdomen nontender and no guarding Neurologic: moves all extremities and awake Psychiatric: Orientation: alert and cooperative Genitourinary: no CVA tenderness Voiding spontaneously, Incontinent, urine not visualized during exam. Results & Data Vital Signs (Past 12 Hours) Vital Signs Temp Pulse Pulse Resp BP Pulse Ox 04/22/19 07:47 36.5 C 82 20 163/92 H 93 04/22/19 03:00 36.8 C 69 20 132/74 94 04/22/19 01:06 69 04/21/19 23:00 36.7 C 71 16 140/73 98 PG Care Time/CCT Total # of Minutes Spent Total Time Spent with Patient: Total time spent is greater than 50% in coordination of care (as documented) at patient's floor/unit and/or counseling patient: Coding Level of Care Code 07663 Subseq Hosp Care Lvl 2 Diagnoses Hematuria R31.9
--- NOTE | 2019-04-22 19:58 | Hospitalist Progress Note ---
Date of Service April 22, 2019 Assessment & Plan (1) Diverticulitis: CT demonstrated sigmoid diverticulitis. Afebrile. Leukocytosis improved. Persistent LLQ tenderness. Continue clear liquids. Continue IV antibiotics. (2) Toxic metabolic encephalopathy: Altered mental status at time of admission. Underlying dementia. Probable metabolic encephalopathy secondary to infection. (3) Hematuria: Gross hematuria without apparent urinary tract infection. Urology consulted. Outpatient cystoscopy recommended. (4) Chronic systolic (congestive) heart failure: Chronic left ventricular systolic heart failure. Compensated. Not on JAME or ARB-need to clarify history. Continue carvedilol. Diurese as needed. (5) Chronic atrial fibrillation: Rate controlled on carvedilol. No anticoagulation due to gross hematuria. (6) Hypertension: Continue carvedilol, lisinopril, terazosin. (7) Dementia: Continue memantine. Monitor for delirium. (8) DVT prophylaxis: No anticoagulants due to hematuria. SCDs. Ambulate. (9) Discharge planning issues: Anticipate need for skilled care or inpatient rehab. Case Management consulted. Family Medicine follow-up with Dr. Weller. Admission and Anticipated Discharge Date Admission Date: April 19, 2019 Subjective Recheck for multiple problems. Patient seen in their room around 1500. Patient denies any problems. Review of Systems: (unreliable due to pt's dementia) Constitutional- no fever. Cardiac- no chest pain. Pulmonary- no cough or SOB. GI- no nausea, vomiting, diarrhea, melena, hematochezia. - as noted above. Otherwise, as noted above. Physical Exam Constitutional: no acute distress Respiratory: no respiratory distress Auscultation: lungs clear to auscultation bilaterally Cardiovascular: Rate/Rhythm: + irregularly irregular Heart Sounds: no gallop Vessels: no JVD Extremities: + edema (trace pretibial); no calf tenderness Gastrointestinal (Abdomen): Inspection/Auscultation: normal bowel sounds Percussion/Palpation: + abdomen tender (lower abdominal) and abdomen soft Musculoskeletal: Extremities: no cyanosis Skin: no rashes, warm and dry Psychiatric: Orientation: alert; + not oriented x 3 (only to person) Results & Data ([facility]) Vital Signs (Past 12 Hours) Vital Signs Temp Pulse Pulse Resp BP Pulse Ox 04/22/19 19:47 36.9 C 84 18 147/91 H 97 04/22/19 14:55 36.5 C 71 20 109/67 98 04/22/19 11:40 36.3 C L 69 20 147/95 H 98 Laboratory Results Laboratory Results - last 24 hr 04/22/19 04/22/19 07:31 07:31 WBC 6.06 RBC 3.82 L Hgb 11.6 L Hct 34.8 L MCV 91.1 MCH 30.4 MCHC 33.3 RDW Std Deviation 45.5 RDW Coeff of Skylar 13.7 Plt Count 137 MPV 9.5 Sodium 138 Potassium 3.9 Chloride 108 H Carbon Dioxide 25 Anion Gap 5.0 BUN 16 Creatinine 0.81 Est Cr Clr Drug Dosing 66.2 Est GFR ( Amer) 93.9 Est GFR (Non-Af Amer) 81.0 BUN/Creatinine Ratio 20.2 H Glucose 92 Calcium 9.2 Microbiology 04/19/19 18:46 Blood Aerobic Blood Culture - Preliminary No growth in Aerobic bottle after 48 hours. 04/19/19 18:46 Blood Anaerobic Blood Culture - Preliminary No growth in Anaerobic bottle after 48 hours. 04/19/19 18:40 Blood Aerobic Blood Culture - Preliminary No growth in Aerobic bottle after 48 hours. 04/19/19 18:40 Blood Anaerobic Blood Culture - Preliminary No growth in Anaerobic bottle after 48 hours. (1) Dementia Dementia behavioral disturbance: without behavioral disturbance Dementia type: unspecified type Qualified Code(s): F03.90 - Unspecified dementia without behavioral disturbance
[2019-04-22] MEDS: cefTRIAXone SODIUM 1,000 MG in DEXTROSE 5% 50 ML IV SCH (20:03)
[2019-04-22] MEDS: TERAZOSIN HCL 5 MG CAP PO SCH (20:07)
[2019-04-22] MEDS: ATORVASTATIN 40 MG TAB PO SCH (20:08)
[2019-04-22] MEDS ORDERED: PIPERACILL/TAZOBAC CONSULT ACTIVE PRN (23:42)
[2019-04-22] MEDS ORDERED: PIPERACILLIN/TAZOBACTAM 3.375 GM in DEXTROSE 5% 100 ML IV SCH (23:45)
[2019-04-23] MEDS ORDERED: PIPERACILLIN/TAZOBACTAM 3.375 GM in DEXTROSE 5% 100 ML IV ONE (00:15)
[2019-04-23] MEDS: PIPERACILLIN/TAZOBACTAM 3.375 GM in DEXTROSE 5% 100 ML IV SCH ×3 (05:49→21:08)
[2019-04-23 08:13] LABS: Hematocrit (blood only) 36.6 % (42-52); Mean Corpuscular Hemoglobin 30.2 pg (25-34); Mean Corpuscular Hgb Conc 32.8 g/dL (32-36); Mean Corpuscular Volume 92.2 fL (80-100); Mean Platelet Volume 9.6 fL (7.4-10.4); Platelet Count 153 K/uL (130-400); RDW Coefficient of Variation 13.8 % (11.5-14.5); RDW Standard Deviation 46.9 fL (36.4-46.3); Red Blood Count 3.97 M/uL (4.7-6.1); White Blood Count 6.97 K/uL (4.8-10.8)
[2019-04-23] MEDS: lisinopriL 20 MG TAB PO SCH (08:27)
[2019-04-23] MEDS: carvediloL 25 MG TAB PO SCH ×2 (08:27→21:11)
[2019-04-23] MEDS: MEMANTINE HCL 5 MG TAB PO SCH ×2 (08:27→21:09)
[2019-04-23] MEDS: FINASTERIDE 5 MG TAB PO SCH (08:27)
[2019-04-23 08:37] LABS: BUN Creatinine Ratio 17.5 (10-20); Calcium 9.2 mg/dl (8.5-10.1); Creatinine Clr Calc Pharmacy 55.2 ml/min; Est GFR (African American) 82.2; Est GFR (Non-African American) 70.9; Potassium 3.9 mmol/L (3.5-5.1)
[2019-04-23] MEDS: TERAZOSIN HCL 5 MG CAP PO SCH (21:10)
[2019-04-23] MEDS: ATORVASTATIN 40 MG TAB PO SCH (21:10)
--- NOTE | 2019-04-23 23:25 | Hospitalist Progress Note ---
Date of Service April 23, 2019 Assessment & Plan (1) Diverticulitis: CT demonstrated sigmoid diverticulitis. Afebrile. Leukocytosis improved. Improving LLQ tenderness. Advance diet. Continue IV antibiotics. (2) Toxic metabolic encephalopathy: Altered mental status at time of admission. Underlying dementia. Probable metabolic encephalopathy secondary to infection. (3) Hematuria: Gross hematuria without apparent urinary tract infection. Urology consulted. Outpatient cystoscopy recommended. (4) Chronic systolic (congestive) heart failure: Chronic left ventricular systolic heart failure. Compensated. Not on JAME or ARB-need to clarify history. Continue carvedilol. Diurese as needed. (5) Chronic atrial fibrillation: Rate controlled on carvedilol. No anticoagulation due to gross hematuria. (6) Hypertension: Continue carvedilol, lisinopril, terazosin. (7) Dementia: Continue memantine. Monitor for delirium. (8) DVT prophylaxis: No anticoagulants due to hematuria. SCDs. Ambulate. (9) Discharge planning issues: Anticipate need for skilled care or inpatient rehab. Case Management consulted. Family Medicine follow-up with Dr. Weller. Admission and Anticipated Discharge Date Admission Date: April 19, 2019 Subjective Recheck for multiple problems. Patient seen in their room around 1620. Patient denies any problems. Would like to advance diet. Review of Systems: (unreliable due to pt's dementia) Constitutional- no fever. Cardiac- no chest pain. Pulmonary- no cough or SOB. GI- no nausea, vomiting, diarrhea, melena, hematochezia. - as noted above. Otherwise, as noted above. Physical Exam Constitutional: no acute distress Respiratory: no respiratory distress Auscultation: lungs clear to auscultation bilaterally Cardiovascular: Rate/Rhythm: + irregularly irregular Heart Sounds: no gallop Vessels: no JVD Extremities: + edema (trace pretibial); no calf tenderness Gastrointestinal (Abdomen): Inspection/Auscultation: normal bowel sounds Percussion/Palpation: + abdomen tender (lower abdominal tenderness improved) and abdomen soft Musculoskeletal: Extremities: no cyanosis Skin: no rashes, warm and dry Psychiatric: Orientation: alert; + not oriented x 3 (only to person) Results & Data ([facility]) Vital Signs (Past 12 Hours) Vital Signs Temp Pulse Pulse Resp BP BP Pulse Ox 04/23/19 19:32 36.6 C 71 18 148/56 H 98 04/23/19 16:00 80 04/23/19 15:09 36.4 C L 76 18 120/74 97 Laboratory Results 04/23/19 07:24 04/23/19 07:24 (1) Dementia Dementia behavioral disturbance: without behavioral disturbance Dementia type: unspecified type Qualified Code(s): F03.90 - Unspecified dementia without behavioral disturbance
[2019-04-24] MEDS: PIPERACILLIN/TAZOBACTAM 3.375 GM in DEXTROSE 5% 100 ML IV SCH ×3 (05:53→22:11)
[2019-04-24] MEDS: FINASTERIDE 5 MG TAB PO SCH (09:08)
[2019-04-24] MEDS: MEMANTINE HCL 5 MG TAB PO SCH ×2 (09:08→20:39)
[2019-04-24] MEDS: lisinopriL 20 MG TAB PO SCH (09:09)
[2019-04-24] MEDS: carvediloL 25 MG TAB PO SCH ×2 (09:09→20:38)
--- NOTE | 2019-04-24 20:26 | Hospitalist Progress Note ---
Date of Service April 24, 2019 Assessment & Plan (1) Diverticulitis: CT demonstrated sigmoid diverticulitis. Afebrile. Leukocytosis improved. Improving LLQ tenderness. Advance diet. Continue IV antibiotics. (2) Toxic metabolic encephalopathy: Altered mental status at time of admission. Underlying dementia. Probable metabolic encephalopathy secondary to infection. (3) Hematuria: Gross hematuria without apparent urinary tract infection. Urology consulted. Outpatient cystoscopy recommended. (4) Chronic systolic (congestive) heart failure: Chronic left ventricular systolic heart failure. Compensated. Not on JAME or ARB-need to clarify history. Continue carvedilol. Diurese as needed. (5) Chronic atrial fibrillation: Rate controlled on carvedilol. No anticoagulation due to gross hematuria. (6) Hypertension: Continue carvedilol, lisinopril, terazosin. (7) Dementia: Continue memantine. Monitor for delirium. (8) DVT prophylaxis: No anticoagulants due to hematuria. SCDs. Ambulate. (9) Discharge planning issues: Anticipate need for skilled care or inpatient rehab. Case Management consulted. PT / OT evaluations obtained. Family Medicine follow-up with Dr. Weller. Tried to call to give update- no answer. Called daughter and gave her update. Admission and Anticipated Discharge Date Admission Date: April 19, 2019 Subjective Recheck for multiple problems. Patient seen in their room around 1530. Pt denies abdominal pain, nausea, vomiting. No new problems reported by staff. Review of Systems: (unreliable due to pt's dementia) Constitutional- no fever. Cardiac- no chest pain. Pulmonary- no cough or SOB. GI- no nausea, vomiting, diarrhea, melena, hematochezia. - as noted above. Otherwise, as noted above. Physical Exam Constitutional: no acute distress Respiratory: no respiratory distress Auscultation: lungs clear to auscultation bilaterally Cardiovascular: Rate/Rhythm: + irregularly irregular Heart Sounds: no gallop Vessels: no JVD Extremities: + edema (trace pretibial); no calf tenderness Gastrointestinal (Abdomen): Inspection/Auscultation: normal bowel sounds Percussion/Palpation: + abdomen tender (mild LLQ tenderness without rebound or guarding) and abdomen soft Musculoskeletal: Extremities: no cyanosis Skin: no rashes, warm and dry Psychiatric: Orientation: alert; + not oriented x 3 (only to person) Results & Data ([facility]) Vital Signs (Past 12 Hours) Vital Signs Temp Pulse Resp BP BP Pulse Ox 04/24/19 19:30 36.3 C L 71 16 92/57 L 94 04/24/19 16:01 36.6 C 84 18 131/86 98 04/24/19 11:45 36.9 C 70 18 119/74 97 Laboratory Results 04/23/19 07:24 04/23/19 07:24 (1) Dementia Dementia behavioral disturbance: without behavioral disturbance Dementia type: unspecified type Qualified Code(s): F03.90 - Unspecified dementia without behavioral disturbance
[2019-04-24] MEDS: TERAZOSIN HCL 5 MG CAP PO SCH (20:38)
[2019-04-24] MEDS: ATORVASTATIN 40 MG TAB PO SCH (20:39)
[2019-04-25] MEDS: PIPERACILLIN/TAZOBACTAM 3.375 GM in DEXTROSE 5% 100 ML IV SCH ×3 (06:20→22:40)
[2019-04-25 07:04] LABS: Hematocrit (blood only) 36.6 % (42-52); Hemoglobin 11.9 g/dL (14.0-18.0); Mean Corpuscular Hemoglobin 29.9 pg (25-34); Mean Corpuscular Hgb Conc 32.5 g/dL (32-36); Mean Platelet Volume 9.8 fL (7.4-10.4); Platelet Count 144 K/uL (130-400); RDW Coefficient of Variation 14.1 % (11.5-14.5); RDW Standard Deviation 47.5 fL (36.4-46.3); Red Blood Count 3.98 M/uL (4.7-6.1); White Blood Count 9.92 K/uL (4.8-10.8)
[2019-04-25 07:38] LABS: Calcium 9.2 mg/dl (8.5-10.1)
[2019-04-25] MEDS: carvediloL 25 MG TAB PO SCH ×2 (08:08→20:47)
[2019-04-25] MEDS: MEMANTINE HCL 5 MG TAB PO SCH ×2 (08:08→20:48)
[2019-04-25] MEDS: lisinopriL 20 MG TAB PO SCH (08:08)
[2019-04-25] MEDS: FINASTERIDE 5 MG TAB PO SCH (08:09)
[2019-04-25] MEDS ORDERED: LACTATED RINGER'S 1,000 ML IV SCH (19:30)
--- NOTE | 2019-04-25 20:21 | Hospitalist Progress Note ---
Date of Service April 25, 2019 Assessment & Plan (1) Diverticulitis: CT demonstrated sigmoid diverticulitis. Afebrile. Received IV piperacillin / tazobactam with improvement. WBC 14,680 --> 9920. Advance diet. Transition to PO antibiotic therapy with amoxicillin / clavulanic acid. (2) Toxic metabolic encephalopathy: Altered mental status at time of admission. Underlying dementia. Probable metabolic encephalopathy secondary to infection. (3) Hematuria: Gross hematuria without apparent urinary tract infection. Urology consulted. Outpatient cystoscopy recommended. 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 LVEF 35-40 per echo [place] 02/20/17. Compensated. Not on JAME or ARB- lisinopril discontinued August 2018 due to renal insufficiency. Continue carvedilol. Diurese as needed. (5) Chronic atrial fibrillation: Rate controlled on carvedilol. Anticoagulation held due to gross hematuria. Restart apixaban with caution- initially 2.5 BID. (6) Hypertension: Continue carvedilol, lisinopril, terazosin. (7) Dementia: Continue memantine. Monitor for delirium. (8) DVT prophylaxis: Anticoagulants held due to hematuria. SCDs. Ambulate. (9) Discharge planning issues: Anticipate need for skilled care or inpatient rehab. Case Management consulted. PT / OT evaluations obtained. Family Medicine follow-up with Dr. Weller. Spoke with by phone this evening and gave update on condition and plans. Patient's dementia has been an ongoing concern. She is hoping that he can return home after receiving some PT / OT under skilled care. Admission and Anticipated Discharge Date Admission Date: April 19, 2019 Subjective Recheck for multiple problems. Patient seen in their room around 1140. No new problems. Denies abdominal pain, nausea, vomiting. Tolerated breakfast. Review of Systems: (probably unreliable due to pt's dementia) Constitutional- no fever. Cardiac- no chest pain. Pulmonary- no cough or SOB. GI- no nausea, vomiting, diarrhea, melena, hematochezia. - no dysuria or hematuria Otherwise, as noted above. Physical Exam Constitutional: no acute distress Respiratory: no respiratory distress Auscultation: lungs clear to auscultation bilaterally Cardiovascular: Rate/Rhythm: + irregularly irregular Heart Sounds: no gallop Vessels: no JVD Extremities: + edema (trace pretibial); no calf tenderness Gastrointestinal (Abdomen): Inspection/Auscultation: normal bowel sounds Percussion/Palpation: abdomen soft; abdomen nontender Musculoskeletal: Extremities: no cyanosis Skin: no rashes, warm and dry Psychiatric: Orientation: alert; + not oriented x 3 (only to person) Results & Data ([facility]) Vital Signs (Past 12 Hours) Vital Signs Temp Pulse Resp BP Pulse Ox 04/25/19 19:26 36.3 C L 103 H 18 128/83 93 04/25/19 16:19 36.8 C 97 H 18 119/77 95 04/25/19 11:55 36.5 C 68 18 119/77 92 Laboratory Results Laboratory Results - last 24 hr 04/25/19 04/25/19 06:30 06:30 WBC 9.92 RBC 3.98 L Hgb 11.9 L Hct 36.6 L MCV 92.0 MCH 29.9 MCHC 32.5 RDW Std Deviation 47.5 H RDW Coeff of Skylar 14.1 Plt Count 144 MPV 9.8 Sodium 137 Potassium 4.0 Chloride 107 Carbon Dioxide 24 Anion Gap 6.0 BUN 27 H D Creatinine 1.07 Est Cr Clr Drug Dosing 50.0 Est GFR ( Amer) 73.0 Est GFR (Non-Af Amer) 63.0 BUN/Creatinine Ratio 25.0 H Glucose 90 Calcium 9.2 (1) Dementia Dementia behavioral disturbance: without behavioral disturbance Dementia type: unspecified type Qualified Code(s): F03.90 - Unspecified dementia without behavioral disturbance
[2019-04-25] MEDS: ATORVASTATIN 40 MG TAB PO SCH (20:47)
[2019-04-25] MEDS: TERAZOSIN HCL 5 MG CAP PO SCH (20:47)
[2019-04-25] MEDS: APIXABAN 2.5 MG TAB PO SCH (20:51)
[2019-04-26] MEDS: lisinopriL 20 MG TAB PO SCH (07:28)
[2019-04-26] MEDS: APIXABAN 2.5 MG TAB PO SCH ×2 (07:28→20:13)
[2019-04-26] MEDS: AMOXICILLIN/CLAVULANATE 875 MG TAB PO SCH ×2 (07:28→17:09)
[2019-04-26] MEDS: FINASTERIDE 5 MG TAB PO SCH (07:28)
[2019-04-26] MEDS: carvediloL 25 MG TAB PO SCH ×2 (07:28→20:10)
[2019-04-26] MEDS: MEMANTINE HCL 5 MG TAB PO SCH ×2 (07:29→20:10)
[2019-04-26 07:39] LABS: BUN Creatinine Ratio 24.9 (10-20); Calcium 8.9 mg/dl (8.5-10.1); Creatinine Clr Calc Pharmacy 59.9 ml/min; Est GFR (African American) 87.6; Est GFR (Non-African American) 75.6; Potassium 3.9 mmol/L (3.5-5.1)
[2019-04-26] MEDS: ATORVASTATIN 40 MG TAB PO SCH (20:12)
[2019-04-26] MEDS: TERAZOSIN HCL 5 MG CAP PO SCH (20:13)
--- NOTE | 2019-04-26 20:41 | Hospitalist Progress Note ---
Date of Service April 26, 2019 Assessment & Plan (1) Diverticulitis: CT demonstrated sigmoid diverticulitis. Afebrile. Received IV piperacillin / tazobactam with improvement. WBC 14,680 --> 9920. Advancing diet. Transitioned to PO antibiotic therapy with amoxicillin / clavulanic acid. (2) Toxic metabolic encephalopathy: Altered mental status at time of admission. Underlying dementia. Probable metabolic encephalopathy secondary to infection. (3) Hematuria: Gross hematuria without apparent urinary tract infection. Urology consulted. Outpatient cystoscopy recommended. 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 LVEF 35-40 per echo [place] 02/20/17. Compensated. Not on JAME or ARB- lisinopril discontinued August 2018 due to renal insufficiency. Continue carvedilol. Diurese as needed. (5) Chronic atrial fibrillation: Rate controlled on carvedilol. Anticoagulation held due to gross hematuria. Restarting apixaban with caution- initially 2.5 BID. (6) Hypertension: Continue carvedilol, lisinopril, terazosin. (7) Dementia: Continue memantine. Monitor for delirium. (8) DVT prophylaxis: Anticoagulants held due to hematuria. SCDs. Ambulate. (9) Discharge planning issues: Anticipate need for skilled care or inpatient rehab. Case Management consulted. PT / OT evaluations obtained. Family Medicine follow-up with Dr. Weller. Admission and Anticipated Discharge Date Admission Date: April 19, 2019 Subjective Recheck for multiple problems. Patient seen in their room around 1040. No new problems. Tolerating diet. Denies abdominal pain, nausea, vomiting. Review of Systems: (probably unreliable due to pt's dementia) Constitutional- no fever. Cardiac- no chest pain. Pulmonary- no cough or SOB. GI- no nausea, vomiting, diarrhea, melena, hematochezia. - no dysuria or hematuria Otherwise, as noted above. Physical Exam Constitutional: no acute distress Respiratory: no respiratory distress Auscultation: lungs clear to auscultation bilaterally Cardiovascular: Rate/Rhythm: + irregularly irregular Heart Sounds: no gallop Vessels: no JVD Extremities: + edema (trace pretibial); no calf tenderness Gastrointestinal (Abdomen): Inspection/Auscultation: normal bowel sounds Percussion/Palpation: abdomen soft; abdomen nontender Musculoskeletal: Extremities: no cyanosis Skin: no rashes, warm and dry Psychiatric: Orientation: alert; + not oriented x 3 (only to person) Results & Data ([facility]) Vital Signs (Past 12 Hours) Vital Signs Temp Pulse Resp BP BP Pulse Ox 04/26/19 19:42 36.6 C 92 H 20 118/68 97 04/26/19 15:07 36.7 C 71 18 147/81 H 99 04/26/19 11:12 36.6 C 71 18 132/74 98 Laboratory Results 04/25/19 06:30 04/26/19 06:43 (1) Dementia Dementia behavioral disturbance: without behavioral disturbance Dementia type: unspecified type Qualified Code(s): F03.90 - Unspecified dementia without behavioral disturbance
[2019-04-27] MEDS: AMOXICILLIN/CLAVULANATE 875 MG TAB PO SCH (08:08)
[2019-04-27] MEDS: APIXABAN 2.5 MG TAB PO SCH (08:09)
[2019-04-27] MEDS: carvediloL 25 MG TAB PO SCH (08:09)
[2019-04-27] MEDS: FINASTERIDE 5 MG TAB PO SCH (08:09)
[2019-04-27] MEDS: MEMANTINE HCL 5 MG TAB PO SCH (08:09)
[2019-04-27] MEDS: lisinopriL 20 MG TAB PO SCH (08:09)
--- NOTE | 2019-04-27 14:06 | Hospitalist Progress Note ---
Date of Service April 27, 2019 Assessment & Plan (1) Diverticulitis: CT demonstrated sigmoid diverticulitis. Afebrile. Received IV piperacillin / tazobactam with improvement. WBC 14,680 --> 9920. Diet advanced and tolerated. Transitioned to PO antibiotic therapy with amoxicillin / clavulanic acid. Discharge on amoxicillin / clavulanic acid to complete 10 days of antibiotic therapy. (2) Toxic metabolic encephalopathy: Altered mental status at time of admission. Underlying dementia. Probable metabolic encephalopathy secondary to infection. (3) Hematuria: Gross hematuria without apparent urinary tract infection. Urology consulted. Apixaban was held for several days and then resumed because stroke risk. No further gross hematuria. Outpatient cystoscopy recommended. 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 LVEF 35-40 per echo [place] 02/20/17. Compensated. Not recently on JAME or ARB- lisinopril discontinued August 2018 due to renal insufficiency. Lisinopril was resumed without issue. Continue carvedilol. Diurese as needed. (5) Chronic atrial fibrillation: Rate controlled on carvedilol. Anticoagulation held for several days due to gross hematuria. Restarting apixaban because of stroke risk. Continue with caution. (6) Hypertension: Continue carvedilol, lisinopril. (7) BPH (benign prostatic hyperplasia): Continue finasteride. Switch from terazosin to tamsulosin to minimize side effects like orthostasis. (8) Dementia: Continue memantine. Monitor for delirium. Has some cogwheel rigidity; consider Lewy body dementia or Parkinson's. Very sensitive to risperidone; consider Lewy body dementia. Outpatient follow-up with Neurology recommended. (9) DVT prophylaxis: Anticoagulants held due to hematuria. SCDs. Ambulate. (10) Discharge planning issues: Anticipate need for skilled care or inpatient rehab. Case Management consulted. PT / OT evaluations obtained. Family Medicine follow-up with Dr. Weller. Admission and Anticipated Discharge Date Admission Date: April 19, 2019 Subjective Recheck for multiple problems. Patient seen in their room around 1350. No new problems. Tolerating diet- ate all of his lunch. Denies fever, abdominal pain, nausea, vomiting. Review of Systems: (probably unreliable due to pt's dementia) Constitutional- no fever. Cardiac- no chest pain. Pulmonary- no cough or SOB. GI- no nausea, vomiting, diarrhea, melena, hematochezia. - no dysuria or hematuria Otherwise, as noted above. Physical Exam Constitutional: no acute distress Respiratory: no respiratory distress Auscultation: lungs clear to auscultation bilaterally Cardiovascular: Rate/Rhythm: + irregularly irregular Heart Sounds: no gallop Vessels: no JVD Extremities: + edema (trace pretibial); no calf tenderness Gastrointestinal (Abdomen): Inspection/Auscultation: normal bowel sounds Percussion/Palpation: abdomen soft; abdomen nontender Musculoskeletal: Extremities: no cyanosis Skin: no rashes, warm and dry Psychiatric: Orientation: alert; + not oriented x 3 (only to person) Results & Data ([facility]) Vital Signs (Past 12 Hours) Vital Signs Temp Pulse Pulse Resp BP BP Pulse Ox 04/27/19 10:56 36.7 C 64 18 105/58 L 91 04/27/19 06:41 36.8 C 81 20 126/47 L 94 04/27/19 03:48 36.8 C 72 18 120/68 93 04/27/19 02:05 79 Laboratory Results 04/25/19 06:30 04/26/19 06:43 (1) Dementia Dementia behavioral disturbance: without behavioral disturbance Dementia type: unspecified type Qualified Code(s): F03.90 - Unspecified dementia without behavioral disturbance
--- NOTE | 2019-04-27 14:14 | Discharge Summary ---
Date of Service Date of Admission: 04/19/19 Date of Discharge: 04/27/19 Admission HPI Per Admitting Provider Please 83-year-old male with past medical history of CAD status post CABG x4, ischemic cardiomyopathy with AICD placement, paroxysmal atrial fibrillation, hypertension, BPH and dementia was sent in from home with complaints of weakness, tiredness, shakes, confusion and feverish that has been going on since Friday last. Symptoms started following taking of recent Risperdol as per the with more shakiness and not been eating and drinking enough. Noted to have more lethargic this morning and was seen by home health nurse who recommended the patient to come into the hospital to rule out UTI. He denies any significant symptoms but he has dementia and did not look any acute distress during my examination in the emergency room . He was afebrile in the emergency room with a white count of 14,000 and urea suggestive of infection. Chest x-ray did not show any pneumonia . He was started on intravenous ceftriaxone and doxycycline Admitted to medical telemetry unit Principal Diagnosis diverticulitis sigmoid colon, uncomplicated OTHER NEW / ACUTE DIAGNOSES: encephalopathy gross hematuria Discharge Data Allergies Allergy/AdvReac Type Severity Reaction Status Date / Time risperidone AdvReac Intermediate confusion, Verified 04/27/19 14:08 somnolence diazepam AdvReac Unknown . Verified 09/21/18 15:35 Consultations 04/19/19 19:50 ED Decision to Admit Stat 04/20/19 10:27 Consult Urology Routine Ordered Studies 04/20/19 06:28 CT abd pelvis wo con Urgent Hospital Course (1) Diverticulitis: Presented with fever, malaise, confusion. CT demonstrated sigmoid diverticulitis. Afebrile. Received IV piperacillin / tazobactam with improvement. WBC 14,680 --> 9920. Diet advanced and tolerated. Transitioned to PO antibiotic therapy with amoxicillin / clavulanic acid. Discharge on amoxicillin / clavulanic acid to complete 10 days of antibiotic therapy. (2) Toxic metabolic encephalopathy: Altered mental status at time of admission. Underlying dementia. Probable metabolic encephalopathy secondary to infection. (3) Hematuria: Gross hematuria without apparent urinary tract infection. Urology consulted. Apixaban was held for several days and then resumed because stroke risk. No further gross hematuria. Outpatient cystoscopy recommended. 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 LVEF 35-40 per echo [place] 02/20/17. Compensated. Not recently on JAME or ARB- lisinopril discontinued August 2018 due to renal insufficiency. Lisinopril was resumed without issue. Continue carvedilol. Diurese as needed. (5) Chronic atrial fibrillation: Rate controlled on carvedilol. Anticoagulation held for several days due to gross hematuria. Restarting apixaban because of stroke risk. Continue with caution. (6) Hypertension: Continue carvedilol, lisinopril. (7) BPH (benign prostatic hyperplasia): Continue finasteride. Switch from terazosin to tamsulosin to minimize side effects like orthostasis. (8) Dementia: Continue memantine. Monitor for delirium. Has some cogwheel rigidity; consider Lewy body dementia or Parkinson's. Very sensitive to risperidone; consider Lewy body dementia. Outpatient follow-up with Neurology recommended. (9) DVT prophylaxis: Anticoagulants held due to hematuria. SCDs. Ambulate. (10) Discharge planning issues: Anticipate need for skilled care or inpatient rehab. Case Management consulted. PT / OT evaluations obtained. Family Medicine follow-up with Dr. Weller. Total Time Total Time Spent Total Time Spent (In Minutes): 50 Discharge Plan Discharge Items Patient Disposition: Transfer [facility] Reason For Visit: weakness, confusion Discharge Diagnosis: diverticulitis Condition on Discharge: Good Activity: As commented below Activity Comment: Walk with assistance. Non-emergency contact: Primary Care Provider, Hospitalist and Employment Director Call non-emergency contact if: you have any medication questions, your symptoms worsen and your temperature is above 101 Follow-up/Referrals: Luís Weller MD [Primary Care Provider] - (Please contact office for appointment when discharged from your facility.) Diet: Heart Healthy Addtl Attending Provider Instructions: Fall precautions. Delirium precautions. Skin precautions. Encourage PO fluid intake. Please call [facility] to schedule cystoscopy. Thank you for receiving this patient in transfer. Please call if you have any questions. [facility] Pending Studies at Discharge: No Stand-Alone Forms: [facility] Skilled Items Patient informed of condition?: Yes DNR: No Discharge Level of Care: Skilled Communicable Disease: No Discharge Prognosis: Improving Lines: None Urinary Catheter: Yes Medications and DC Order Prescriptions: New amoxicillin-pot clavulanate [Augmentin] 875-125 mg Tablet 1 tab PO BIDM Qty: 4 RF: 0 lisinopril 10 mg tablet 10 mg PO DAILY 30 Days Qty: 30 RF: 0 tamsulosin 0.4 mg capsule 0.4 mg PO HS 30 Days Qty: 30 RF: 0 Continued acetaminophen [Tylenol Extra Strength] 500 mg tablet 1,000 mg PO Q6H PRN (Reason: pain) Qty: 1 RF: 0 carvedilol 12.5 mg tablet 12.5 mg PO BID RF: 0 atorvastatin 80 mg tablet 80 mg PO HS RF: 0 aspirin [Aspirin Low Dose] 81 mg Tablet,Delayed Release (Dr/Ec) 81 mg PO DAILY RF: 0 finasteride 5 mg tablet 5 mg PO DAILY RF: 0 memantine 5 mg tablet 5 mg PO BID RF: 0 Eliquis 5 mg tablet 5 mg PO BID RF: 0 Discontinued risperidone 1 mg tablet 1 mg PO HS RF: 0 Admission Data Admit Date/Time: 04/19/19 20:36 Attending Provider: [facility] Admit Provider: Xiomara Hurley Primary Care Provider: Luís Weller Other Providers: Anup Carpio ; Warren Macedo ; Al Cortes ; [facility] ; Theresa Vora [facility] ; [facility]
--- NOTE | 2019-04-27 14:25 | Communication Note ---
Date of Service: April 27, 2019 given update by phone.
== END 2019-04-27 15:35 | DRG 391 ==
LOC: ED 18:02 → 2W 20:36 → SUATTDRO 20:36 → 2W 22:07